=== PATIENT | female | born 1950 | race Caucasian/White ===

== ENCOUNTER 2025-03-22 12:55 | Inpatient (IN) | payer MEDICARE, SELFPAY ==
[2025-03-22] VITALS (28 sets, daily range): BP systolic 111–172; BP diastolic 85–116; PULSE 74–92; RESP 13–26; TEMP 36.3–36.6; O2SAT 90–100; BMI 23.3
--- NOTE | 2025-03-22 13:01 | ECG_ITS ---
Test Date: 2025-03-22 12:57:41 Measurements Intervals [place] Rate: 81 P: 56 AK: 171 QRS: -13 QRSD: 95 T: 72 QT: 403 QTc: 468 Interpretive Statements SINUS RHYTHM WITH OCCASIONAL VENTRICULAR PREMATURE COMPLEXES POSSIBLE LEFT ATRIAL ENLARGEMENT ANTEROSEPTAL ST ELEVATION MYOCARDIAL INFARCT- ACUTE CONSIDER INFERIOR INFARCT, AGE INDETERMINATE BASELINE ARTIFACT- I, II, III, AVR, AVL, AVF, V1 ABNORMAL ECG No previous ECG available for comparison Electronically Signed On 03-22-2025 14:59:12 CDT by Bipin Rodriguez D.O.
--- OUTSIDE RECORDS SUMMARY | 2025-03-22 13:07 | XMS_ITS ---
Author Organization [facility] Care Team Providers Care Spa Attendant Name Role Phone Hayes Crews Unavailable Unavailable Care Team Name Role Address Phone Organization Dates Hayes Crews PCP [address], [place], [place], [id number], [place] (Office): [phone] [facility] 11/01/2014 - 11/01/2014 Reason for Referral No Reasons for Referral Entered Social History Social History Observation Description Start Date End Date Code Code System Current Smoking Status Tobacco smoking consumption unknown 369000167 SNOMED CT Sex Assigned At Female 1950 [address]-3 [facility] Gender Identity
--- NOTE | 2025-03-22 13:12 | ED_ITS ---
HPI - Chest Pain General Chief Complaint: Chest Pain Stated Complaint: STEMI Time Seen by Provider: 03/22/25 12:56 History of Present Illness HPI narrative: Patient is a 74-year-old female who presents to the ER with ST-elevation NE. Activated from the field by [facility]. Has some chest pain last night. Worsening today. Left-sided going down left arm. She feels fatigued and nauseous. No history of NE. elevation in anteroseptal leads. Received aspirin and morphine from EMS. Related Data Home Medications ?Medication ?Instructions ?Recorded ?Confirmed ?Last Taken ?Type amlodipine 5 mg tablet 7.5 mg PO DAILY 03/22/25 03/22/25 03/22/25 History aspirin 81 mg tablet,delayed 81 mg PO DAILY 03/22/25 03/22/25 03/22/25 History release (Adult Aspirin Regimen) meloxicam 15 mg tablet 15 mg PO DAILY 03/22/25 03/22/25 03/22/25 History simvastatin 40 mg tablet 40 mg PO QPM 03/22/25 03/22/25 03/22/25 History triamterene 37.5 1 tablet PO DAILY 03/22/25 03/22/25 03/22/25 History mg-hydrochlorothiazide 25 mg tablet Allergies Allergy/AdvReac Type Severity Reaction Status Date / Time No Known Allergies Allergy Unverified 03/22/25 15:08 Review of Systems 2 Review of Systems: All systems reviewed & are unremarkable except as noted in HPI and below Constitutional: Constitutional: Reports no additional constitutional complaints Cardiovascular: Cardiovascular: Reports no additional cardiovascular complaints Respiratory: Respiratory: Reports no additional respiratory complaints Genitourinary: Genitourinary: Reports no additional female genitourinary complaints [facility] Past Medical History Medical History (Updated 03/22/25 @ 14:41 by Kane Nguyen MD) Hypertension Social History Social History (Updated 03/22/25 @ 14:40 by Kane Nguyen MD) Smoking packs per day: 0.33 Smoking cigarettes per day: 6.6 Years smoked: 13 Smoking pack-years: 4.29 Smoking status: Current every day smoker Tobacco type: cigarettes Alcohol intake: never Substance use: never Lack of Transportation: No Lack of Food: Never True Current Housing: I Have Housing Concerned About Future Housing: No Difficulty Paying Gas/Electric Bills: No Difficulty Paying for Meds: No Currently Unemployed: No Education: High School Diploma/GED Difficulty w/ Childcare or Family Care: No Spiritual care concerns: No Exam 2 Narrative: GENERAL: Ill-appearing, well-nourished, and in no acute distress. HEAD: Normocephalic, atraumatic. ENT: Mucous membranes moist. NECK: Supple. CHEST: Clear to auscultation. No respiratory distress. HEART: Regular rate and rhythm. Normal peripheral pulses. ABDOMEN: Soft, nontender, nondistended. EXTREMITIES: Normal range of motion. No edema. SKIN: Warm, dry, no rash. NEURO: Alert and oriented x3. PSYCH: Normal mood and affect. Course Course Emergency Course: Cath team at bedside. Spoke with interventional cards, will give heparin. Carmenta in animal laboratory helper. PT and family educated on treatment plan. Vital Signs Vital signs: Vital Signs Temperature 97.9 F 03/22/25 12:57 Pulse Rate 74 03/22/25 12:57 Respiratory Rate 18 03/22/25 12:57 Blood Pressure 169/115 H 03/22/25 12:57 Pulse Oximetry 100 03/22/25 12:57 Oxygen Delivery Room Air 03/22/25 12:57 Temperature 97.4 F L 03/22/25 16:00 Pulse Rate 75 03/22/25 18:00 Respiratory Rate 19 03/22/25 18:00 Blood Pressure 151/93 H 03/22/25 18:00 Pulse Oximetry 96 03/22/25 18:00 Oxygen Delivery Room Air 03/22/25 12:57 MDM - Chest Pain Lab Data 03/22/25 13:09 03/22/25 13:09 ECG Data EKG #1: ECG completion date: 03/22/25 Ischemic changes: acute STEMI EKG Interpretation: sinus rhythm, ST depression (inferior), ST elevation (V1-4) and normal QRS Discharge Plan Discharge Clinical Impression: ST elevation (STEMI) myocardial infarction Patient Disposition: Still a Patient Condition: Stable
[2025-03-22 13:17] LABS: Hematocrit 42.2 % (37.0-47.0); Hemoglobin 14.7 g/dL (12.0-15.0); Immature Granulocyte Percent A 0.4 % (0-0.5); Lymphocytes Absolute Auto 0.87 K/mm3 (0.9-3.2); Mean Corpuscular HGB Conc 34.8 g/dl (32-36); Mean Corpuscular Hemoglobin 31.3 pg (26-34); Mean Corpuscular Volume 89.8 fl (80-100); Nucleated Red Blood Cells Absolute Auto 0.000 K/mm3 (0.0-0.012); Nucleated Red Blood Cells Perc 0.0 % (0.0-0.2); Platelet Count Result 187 k/mm3 (150-375); Red Blood Count 4.70 M/mm3 (4.2-5.4); White Blood Count 9.7 K/mm3 (4.5-10.0)
[2025-03-22 13:29] LABS: INR 0.9; Partial Thromboplastin Time 20.5 Seconds (22.3-36.8); Prothrombin Time 12.1 Seconds (11.1-14.7)
[2025-03-22 13:35] LABS: Alanine Aminotransferase 35 U/L (6-35); Albumin Level 4.7 g/dL (3.5-5.1); Alkaline Phosphatase 104 U/L (38-126); Anion Gap 14 mmol/L (4-12); Aspartate Amino Transferase 53 U/L (14-36); Bilirubin,Total 0.7 mg/dL (0.2-1.3); Blood Urea Nitrogen 24 mg/dL (7-17); Calcium 10.6 mg/dL (8.4-10.2); Carbon Dioxide 22 mmol/L (22-30); Chloride 103 mmol/L (98-107); Cholesterol 226 mg/dL (0-200); Estimated CRCL calculation 39 ml/min; Estimated Glomerular Filt Rate 54; Glucose 188 mg/dL (65-110); HDL Direct 78 mg/dL; Potassium 3.3 mmol/L (3.4-5.0); Sodium 139 mmol/L (137-145); Total Protein 7.2 g/dL (6.3-8.2); Triglycerides 136 mg/dL (<150)
[2025-03-22 13:43] LABS: NT Pro B Type Natriuretic Pept 802 pg/mL (19.9-100); Troponin I 1.690 ng/mL (0.000-0.034)
[2025-03-22 14:27] LABS: MRSA (PCR) NOT DETECTED (NOT DETECTE)
--- NOTE | 2025-03-22 14:38 | PM.IMHP ---
H&P: HPI History of Present Illness Date/Time: 03/22/25 14:38 Chief Complaint: Chest pain since yesterday Narrative: HPI: 74-year-old female with past medical history of hypertension; tobacco abuse. No known prior cardiac history. Patient presented to [facility] Emergency Room via EMS with complaints of chest pain that started yesterday and got worse today. Her symptoms are associated with shortness of breath, dizziness without syncope. Patient denied prior cardiac history including clinical OK, angina, heart failure or any known arrhythmias. EKG on my personal interpretation showed sinus rhythm, ST-elevation in the leads V1-V3 with reciprocal ST depression in the inferior leads. Cardiac catheterization lab was activated for primary PCI in the setting of late presentation STEMI with ongoing chest pain. Review of Systems Review of Systems: General: Negative for fever, chills, fatigue Psychological: Negative for anxiety, depression Ophthalmic: negative for loss of vision ENT: Negative for epistaxis, headaches Allergy and immunology: Negative for hives, nasal congestion Hematologic and lymphatic: Negative for overt bleeding problems Endocrine: Negative for hot flashes, palpitations Respiratory: Negative for cough, hemoptysis Cardiovascular: Positive for chest pain and dyspnea Gastrointestinal: Negative for abdominal pain, nausea, vomiting, hematochezia Musculoskeletal: Negative for myalgia, joint pains Neurological: Negative for weakness Dermatological: Negative for rash, skin discoloration PMFSH Past Medical History Medical History (Updated 03/22/25 @ 14:41 by Kane Nguyen MD) Hypertension Social History Social History (Updated 03/22/25 @ 14:40 by Kane Nguyen MD) Smoking status: Current every day smoker Alcohol intake: unknown Substance use: unknown Meds Home Medications and Allergies Allergies Allergy/AdvReac Type Severity Reaction Status Date / Time No Known Allergies Allergy Unverified 03/22/25 13:04 Vital Signs Vital Signs - 24 hr 03/22/25 12:57 03/22/25 13:03 Temperature 36.6 C Pulse Rate 74 78 Respiratory Rate 18 20 Blood Pressure 169/115 H 172/116 H Pulse Oximetry 100 100 Oxygen Delivery Room Air Exam Narrative: PHYSICAL EXAMINATION: GENERAL: Alert, oriented, distress due to ongoing chest pain MENTAL STATUS: Anxious EYES: Extraocular movements intact, no pallor EARS: External ears appear normal, hearing grossly normal NOSE: Normal and patent, no discharge MOUTH: Mucous membranes moist, tongue normal NECK: Supple, no JVD CHEST: Coarse breath sounds HEART: Normal rate, regular rhythm, normal S1 and S2, S4 gallop ABDOMEN: Soft, nontender NEUROLOGICAL: Alert, oriented, normal speech, no gross motor deficits MUSCULOSKELETAL: No major deformity, no amputation EXTREMITIES: No pedal edema, no clubbing, no cyanosis SKIN: no rash on the exposed area, no cyanosis PSYCHIATRIC: Anxious H&P: Results Labs Labs: Short CBC 03/22/25 Range/Units 13:09 WBC 9.7 (4.5-10.0) K/mm3 Hgb 14.7 (12.0-15.0) g/dL Hct 42.2 (37.0-47.0) % Plt Count 187 (150-375) k/mm3 BMP 03/22/25 13:09 Sodium 139 Potassium 3.3 L Chloride 103 Carbon Dioxide 22 BUN 24 H Creatinine 1.01 H Glucose 188 H Calcium 10.6 H Cardiac Enzymes 03/22/25 Range/Units 13:09 Troponin I 1.690 H* (0.000-0.034) ng/mL Liver Function 03/22/25 Range/Units 13:09 Total Bilirubin 0.7 (0.2-1.3) mg/dL AST 53 H (14-36) U/L ALT 35 (6-35) U/L Alkaline Phosphatase 104 (38-126) U/L Albumin 4.7 (3.5-5.1) g/dL Assessment and Plan Assessment and plan (1) ST elevation (STEMI) myocardial infarction: Code(s): I21.3 - ST elevation (STEMI) myocardial infarction of unspecified site Status: Acute Assessment and Plan: 74-year-old female with hypertension, tobacco abuse. Patient presented with at least 1 day history of ongoing chest pain. EKG showed anteroseptal ST elevation [place]. Patient was taken to the medical laboratory technologist for primary PCI in the setting of late presentation STEMI with ongoing chest pain. Cardiac catheterization showed 100% thrombotic occlusion of proximal LAD-infarct related vessel; about 70% stenosis in the proximal segment of the ramus intermedius. Left ventriculogram showed LV systolic dysfunction with akinetic to dyskinetic apical and apical inferior segments; LVEF about 35-40%, LVEDP elevated at 39 mmHg. Patient underwent primary PCI/aspiration thrombectomy, IVUS, PTCA/stenting of proximal LAD using 2 sirolimus eluting stents in an overlapping fashion. -admit to ICU -due to heavy thrombus burden, patient will be continued on bivalirudin for additional 2 hours; and initiated on eptifibatide for next 12-18 hours. -dual antiplatelet therapy with aspirin ticagrelor; high-dose statin. Due to LV systolic dysfunction, low-dose beta-jacki will be initiated + ACEI or ARB (this can be later switched to ARNI) when blood pressure allows. -echo with Doppler with contrast to check LV function and rule out LV apical thrombus in light of large anterior OK. -stage PCI of proximal ramus intermedius can be considered in future based on clinical course -labs including CMP, CBC, HGB A1c, lipid panel, serial troponins for prognostication. -patient, her family and IC patient updated. (2) Tobacco abuse: Code(s): Z72.0 - Tobacco use Status: Acute Assessment and Plan: Smoking cessation consult was done
--- NOTE | 2025-03-22 14:45 | P.PCNCC_ITS ---
Cardiac Cath Procedure Note Date of procedure:: 03/22/25 Performing physician:: Kane Nguyen MD Procedure Procedure note:: EMERGENT CARDIAC CATHETERIZATION AND PERCUTANEOUS CORONARY INTERVENTION REPORT DATE OF PROCEDURE: 03/22/2025 INDICATION FOR PROCEDURE: Acute coronary syndrome-late presentation anteroseptal ST-elevation myocardial infarction with ongoing chest pain BRIEF CLINICAL HISTORY: 74-year-old female with past medical history of hypertension; tobacco abuse. No known prior cardiac history. Patient presented to [facility] Emergency Room via EMS with complaints of chest pain that started yesterday and got worse today. Her symptoms are associated with shortness of breath, dizziness without syncope. Patient denied prior cardiac history including clinical [place], angina, heart failure or any known arrhythmias. EKG showed sinus rhythm, ST-elevation in the leads V1-V3 with reciprocal ST depression in the inferior leads. Cardiac catheterization lab was activated for primary PCI in the setting of late presentation STEMI with ongoing chest pain. Patient received aspirin, heparin and morphine in the ER. PROCEDURES PERFORMED: 1. Emergent Left heart catheterization- Selective left and right coronary angiogram; left ventriculogram and hemodynamic assessment 2. Percutaneous coronary intervention- a) aspiration thrombectomy of totally occluded proximal LAD using Estrela Digital CAT Rx thrombectomy catheter (heavy thrombus burden in the proximal and distal LAD); b) balloon angioplasty and stenting of proximal LAD using 4.0 x 30 mm and 4.0 x 13 mm Biotronik sirolimus eluting stents in an overlapping fashion; c) intravascular ultrasound of LAD 3. Moderate sedation-CPT code 14960 and beyond MODERATE SEDATION: Midazolam 2 mg; fentanyl 50 mcg. Start time 1325 , Stop time 1428 ; Total [id number] time 63 minutes; Adi Arnold RN was trained observer for moderate sedation. ACCESS SITE: Right radial artery PROCEDURE NOTE: Patient was emergently brought to catheterization lab and prepped and draped in a usual sterile manner. After local anesthesia with lidocaine, right radial artery access was taken with micropuncture needle followed by insertion of a 6 Chadian sheath. Patient received 2.5 mg of verapamil, 100 mcg of nitroglycerin through the arterial sheath. She received bivalirudin for procedural anticoagulation. Selective left and right coronary angiogram was performed using 6 Chadian EBU 3 and JR4 catheters respectively. Orthogonal views were taken. After completion of primary PCI, a 5 Chadian pigtail catheter was advanced in the LV cavity and was flushed with normal saline. LV pressure measurement was performed. After this, left ventriculogram was performed. The catheter was flushed again, and gradient across the aortic valve was measured on the pullback of the catheter. After completion of procedure, radial band was applied with good hemostasis. There were no immediate procedure related complications. FINDINGS: LEFT MAIN CORONARY: Medium caliber vessel, minimal narrowing at the ostium without significant pressure dampening. LEFT ANTERIOR DESCENDING ARTERY: Lad is a large caliber vessel with 100% thr ombotic occlusion in the proximal segment with diffuse plaque in the proximal- mid segment-infarct related vessel. After PCI, the vessel is seen as medium caliber vessel in the mid and distal segment and is tortuous, tapers distally and reaches the apex. RAMUS INTERMEDIUS: Medium caliber vessel with about 70% stenosis in the proximal segment. The ostium is not well visualized. LEFT CIRCUMFLEX ARTERY: Medium to large caliber vessel, gives rise to small caliber OM1 branch, medium caliber tortuous OM2 and OM3 branches without significant focal stenosis. RIGHT CORONARY ARTERY: Medium caliber vessel. There is about 50% stenosis at the ostium, and mild diffuse plaque in the proximal segment. LEFT VENTRICULOGRAM: LV systolic dysfunction with segmental wall motion abnormality-apical and apical inferior segments are dyskinetic; basal segments are preserved, LVEF about 35-40%. LVEDP severely elevated at 39 mmHg. HEMODYNAMIC ASSESSMENT: Opening pressure 182/114 mmHg, closing pressure 150/85 mmHg, LVEDP 39 mmHg; no significant gradient across aortic valve on the pullback of pigtail catheter. INTERVENTION REPORT: Left main coronary artery ostium was selectively engaged using 6 Chadian EBU 3 guide catheter. Patient had already received aspirin, was given loading dose of ticagrelor 180 mg in the r and d lab technician. Bivalirudin was used for pressure anticoagulation. The totally occluded proximal LAD was successfully crossed after few attempts using 0.014 pilot plant technician 150 wire. The wire was advanced in the distal LAD. After this, balloon angioplasty was performed using a 2.5x 10 mm compliant balloon at nominal pressures. After this, balloon was taken out and angiogram showed some jain of flow in the LAD with heavy thrombus burden in the distal segment. In light of this, aspiration thrombectomy was performed using a Shoplogixra CAT Rx thrombectomy catheter. After this, ic nitroglycerin was given with modest improvement in the flow. Next, IC nitroprusside was given which resulted in the significant improvement in the coronary flow. Significant disease was seen in the proximal segment. IVUS was performed which showed the distal reference diameter of about 4 mm, and proximal response diameter between 4.5-5 mm. After this, a 4.0 x 30 mm Biotronik sirolimus eluting stent was successfully deployed in the lower part of the proximal segment and upper part of the mid segment at nominal pressures. The proximal portion of the stent was covered in the residual stenosis using a 4.0 x 13 mm Biotronik sirolimus eluting stent in an overlapping fashion high inflation pressures. After this, postdilatation was performed using 5.0 x 15 mm NC balloon. There was sluggish blood flow in the LAD. Ic nitroglycerin was given, followed by IC eptifibatide. Patient had significant improvement in the chest pain. After this, left ventriculogram was performed using pigtail catheter as described above. Radial band was applied for local hemostasis. Due to heavy thrombus burden in the LAD, patient will be continued on bivalirudin for next 2 hours, and initiated on eptifibatide for next 12-18 hours. There were no immediate procedure related complications. CONCLUSIONS: 1. CAD: a) 100% thrombotic occlusion proximal LAD with heavy thrombus burden in the distal LAD (infarct-related vessel); b) about 70% stenosis in the proximal segment of ramus intermedius 2. LV dysfunction with segmental wall motion abnormality akinetic to dyskinetic apical and apical inferior segments; basal segments preserved. LVEF about 35- 40%. LVEDP severely elevated at 39 mmHg. 3. Primary PCI-aspiration thrombectomy using penumbra CAT Rx thrombectomy catheter in LAD with heavy thrombus burden; IVUS, PTCA/stenting of proximal LAD using 4.0 x 30 mm and 4.0 x 13 mm Biotronik sirolimus eluting stents in an overlapping fashion (post dilated with 5.0 NC balloon). PLAN/RECOMMENDATIONS: - admit to ICU -due to heavy thrombus burden, patient will be continued on bivalirudin for additional 2 hours; and initiated on eptifibatide for next 12-18 hours. -dual antiplatelet therapy with aspirin ticagrelor; high-dose statin. Due to LV systolic dysfunction, low-dose beta-jacki will be initiated + ACEI or ARB (this can be later switched to ARNI) when blood pressure allows. -echo with Doppler with contrast to check LV function and rule out LV apical thrombus in light of large anterior [place]. -staged PCI of proximal ramus intermedius can be considered in near future based on clinical course -labs including CMP, CBC, HGB A1c, lipid panel. Serial troponins for prognostication. -smoking cessation -patient, her family and IC patient updated. This document was completed by using [employer] speech recognition software, therefore, microfiche duplicator variances may occur.
[2025-03-22] MEDS: EPTIFIBATIDE 0.75 MG/ML 75 MG/100 ML VIAL 9.65 MG IV CONT ×2 (15:00→23:35)
--- NOTE | 2025-03-22 15:06 | ADMGEN ---
This patient, Patience Marroquin, was admitted to Intensive Care Unit-6. Patient/family oriented to hospital policies and general routines including ID bracelet, bed and alarms, visiting hours, pain management, procedures, bathroom and other care routines, personal items, smoking policy, room service/diet, and visiting hours. Information on how to activate the Rapid Response Team has been discussed. Patient/Family are encouraged to report perceived risks to care and to ask questions if they do not understand what they are told or what they should do.
--- OUTSIDE RECORDS SUMMARY | 2025-03-22 15:12 | XMS_ITS ---
Author Organization [facility] Care Team Providers Care Casting Plug Assembler Name Role Phone Hayes Crews Unavailable Unavailable Care Team Name Role Address Phone Organization Dates Hayes Crews PCP [address], [place], [place], [id number], [place] (Office): [phone] [facility] 11/01/2014 - 11/01/2014 Reason for Referral No Reasons for Referral Entered Social History Social History Observation Description Start Date End Date Code Code System Current Smoking Status Tobacco smoking consumption unknown [id number] SNOMED CT Sex Assigned At Female 1950 [address]-6 [facility] Gender Identity
[2025-03-22 15:25] LABS: Hemoglobin A1C 5.9 % (<5.7)
[2025-03-22 15:26] LABS: Cholesterol 228 mg/dL (0-200); HDL Direct 76 mg/dL; Triglycerides 137 mg/dL (<150)
[2025-03-22 16:28] LABS: Troponin I > 80.000 ng/mL (0.000-0.034)
[2025-03-22] MEDS: SODIUM CHLORIDE 0.9% IV 1,000 ML 125 ML IV CONT (16:35)
--- NOTE | 2025-03-22 16:55 | PC.NURSE ---
Stopped Angiom[employer] at 16:55
[2025-03-22] MEDS: POTASSIUM CHLORIDE 20 MEQ PACKET (FOR LIQUID) 40 MEQ PO (17:42)
[2025-03-22] MEDS: COLCHICINE 0.6 MG TABLET 1.2 MG PO (17:43)
[2025-03-22 19:57] LABS: Troponin I > 80.000 ng/mL (0.000-0.034)
[2025-03-22] MEDS: ATORVASTATIN 40 MG TABLET 80 MG PO (21:20)
[2025-03-22] MEDS: TICAGRELOR 90 MG TABLET PO (21:20)
[2025-03-23] VITALS (16 sets, daily range): BP systolic 94–145; BP diastolic 74–108; PULSE 73–90; RESP 14–26; TEMP 36.4–37.4; O2SAT 94–98
--- NOTE | 2025-03-23 | ECHO_ITS ---
Patient Info Name: Patience Marroquin Age: 74 years : 1950 Gender: Female Ht: 65 in Wt: 132 lbs BSA: 1.66 m2 HR: 74 bpm BP: 133 / 92 mmHg Technical Quality: Fair Exam Date: 03/23/2025 12:07 PM Patient Status: I Admit Date: 03/22/2025 Exam Type: CA echo dop color flow w con Complete two-dimensional, color flow and Doppler transthoracic echocardiogram is performed with contrast to opacify the left ventricle and to improve the deliniation of the left ventricle endocardial borders. Staff Referring Physician: Frank Ledesma MD Sebd Teacher: Carline Merida Attending Provider: Kane Nguyen MD Contrast/Agitated Saline Contrast/Ag. Saline: Definity Amount: 2.00 ml Administered By: Carline Merida Summary 1. The left ventricle is normal in size with severely reduced systolic function. The left ventricular ejection fraction is visually estimated to be 25-30%. The entire apex, septum, anterior wall, and distal inferior wall are severely hypokinetic. There is no apical thrombus. 2. The right ventricle is normal in size and systolic function. 3. The aortic valve is not well visualized however there is moderate aortic stenosis by Doppler criteria. 4. Dilated inferior vena cava with <50% collapse upon inspiration consistent with significantly elevated right atrial pressure, 15 mmHg. Left Ventricle The left ventricle is normal in size with severely reduced systolic function. The left ventricular ejection fraction is visually estimated to be 25-30%. The entire apex, septum, anterior wall, and distal inferior wall are severely hypokinetic. There is no apical thrombus. Right Ventricle The right ventricle is normal in size and systolic function. Left Atria The left atrium is normal in size. Right Atria The right atrium is normal in size. Atrial Septum The atrial septum is not well visualized. Aortic Valve The aortic valve is not well visualized however there is moderate aortic stenosis by Doppler criteria. Mitral Valve The mitral valve leaflets are normal. There is mitral annular calcification. There is trace mitral regurgitation. Tricuspid Valve The tricuspid valve is normal. There is trace tricuspid regurgitation. Pericardium/Pleural Pericardium is normal in appearance with no evidence for significant pericardial effusion. Inferior Vena Cava Dilated inferior vena cava with <50% collapse upon inspiration consistent with significantly elevated right atrial pressure, 15 mmHg. Aorta The aorta is not well visualized. Left Ventricular Outflow Tract Name Value Normal LVOT 2D LVOT Diameter 1.8 cm LVOT Doppler LVOT Peak Velocity 110 cm/s LVOT Peak Gradient 5 mmHg LVOT Mean Gradient 2 mmHg LVOT VTI 27 cm LVOT VTI/AV VTI Ratio 0.5 LVOT Stroke Volume 67 ml LVOT CO 4.0 l/min LVOT CI 2.4 l/min/m2 Mitral Valve Name Value Normal MV Diastolic Function MV E Peak Velocity 30 cm/s MV A Peak Velocity 85 cm/s MV E/A 0.4 MV Decel Time (PW) 483 ms MV Annular TDI MV E/e' (Septal) 7.1 MV E/e' (Lateral) 4.5 MV E/e' (Average) 5.8 Tricuspid Valve Name Value Normal Estimated PAP/RSVP RA Pressure 15 mmHg <=5 Aortic Valve Name Value Normal AV Doppler AV Peak Velocity 287 cm/s AV Peak Gradient 33 mmHg AV Mean Gradient 20 mmHg AV VTI 57 cm AV Area (Cont Eq VTI) 1.2 cm2 >=3.0 AV Area (Cont Eq Kwame) 0.9 cm2 AV DI (Kwame) 0.38 AV Regurgitation 2D LVOT Area 2.5 cm2 Ventricles Name Value Normal LV Dimensions 2D/MM IVS Diastolic Thickness (2D) 1.2 cm 0.6-1.0 LVID Diastole (2D) 5.1 cm 3.8-5.2 LVIW Diastolic Thickness (2D) 1.0 cm 0.6-0.9 LVID Systole (2D) 4.2 cm 2.2-3.5 LVOT Diameter 1.8 cm LV Mass (2D Cubed) 218.53 g 67.00-162.00 LV Mass Index (2D Cubed) 132 g/m2 43-95 Relative Wall Thickness (2D) 0.41 <=0.42 LV Fractional Shortening/Ejection Fraction 2D/MM LV Fractional Shortening (2D) 18 % 27-45 LV EF (2D Teichholz) 36 % LV Diastolic Volume (4C MOD) 80 ml LV EF (4C MOD) 43 % LV Diastolic Volume (2C MOD) 83 ml LV EF (2C MOD) 31 % LV Diastolic Volume (BP MOD) 81 ml 46-106 LV Diastolic Volume Index (BP MOD) 49 ml/m2 29-61 LV Systolic Volume (BP MOD) 50 ml 14-42 LV Systolic Volume Index (BP MOD) 30 ml/m2 8-24 LV EF (BP MOD) 38 % 54-74 LV Diastolic Length (4C) 7.6 cm LV Systolic Length (4C) 7.2 cm LV Stroke Volume (4C MOD) 34 ml Atria Name Value Normal LA Dimensions LA Volume (4C A-L) 23 ml LA Volume (BP A-L) 25 ml RA Dimensions RA Systolic Major [place] Length (4C) 3.6 cm 2.2-2.8 RA Area (4C) 10.3 cm2 <=18.0 Report Signatures
--- NOTE | 2025-03-23 00:55 | ECG_ITS ---
Test Date: 2025-03-23 01:02:11 Measurements Intervals [place] Rate: 73 P: 48 CA: 159 QRS: -14 QRSD: 93 T: 66 QT: 404 QTc: 448 Interpretive Statements SINUS RHYTHM LOW QRS VOLTAGE IN PRECORDIAL LEADS ANTEROSEPTAL ST ELEVATION MYOCARDIAL INFARCTION, PROBABLY RECENT ABNORMAL ECG Compared to ECG 03/22/2025 12:57:41 STEMI EVOLVING Electronically Signed On 03-23-2025 06:31:01 CDT by Bipin Rodriguez D.O.
[2025-03-23 07:47] LABS: Hematocrit 39.6 % (37.0-47.0); Hemoglobin 13.8 g/dL (12.0-15.0); Immature Granulocyte Percent A 0.5 % (0-0.5); Lymphocytes Absolute Auto 0.71 K/mm3 (0.9-3.2); Mean Corpuscular HGB Conc 34.8 g/dl (32-36); Mean Corpuscular Hemoglobin 31.4 pg (26-34); Mean Corpuscular Volume 90.0 fl (80-100); Nucleated Red Blood Cells Absolute Auto 0.000 K/mm3 (0.0-0.012); Nucleated Red Blood Cells Perc 0.0 % (0.0-0.2); Platelet Count Result 205 k/mm3 (150-375); Red Blood Count 4.40 M/mm3 (4.2-5.4); White Blood Count 13.6 K/mm3 (4.5-10.0)
[2025-03-23 08:07] LABS: Alanine Aminotransferase 113 U/L (6-35); Albumin Level 4.2 g/dL (3.5-5.1); Alkaline Phosphatase 91 U/L (38-126); Anion Gap 9 mmol/L (4-12); Aspartate Amino Transferase 660 U/L (14-36); Bilirubin,Total 1.1 mg/dL (0.2-1.3); Blood Urea Nitrogen 25 mg/dL (7-17); Calcium 9.8 mg/dL (8.4-10.2); Carbon Dioxide 21 mmol/L (22-30); Chloride 105 mmol/L (98-107); Estimated CRCL calculation 49 ml/min; Estimated Glomerular Filt Rate > 60; Glucose 159 mg/dL (65-110); Magnesium 1.8 mg/dL (1.6-2.3); Potassium 4.0 mmol/L (3.4-5.0); Sodium 135 mmol/L (137-145); Total Protein 6.6 g/dL (6.3-8.2)
[2025-03-23] MEDS: ATORVASTATIN 40 MG TABLET 80 MG PO (08:51)
[2025-03-23] MEDS: ASPIRIN 81 MG ENTERIC TABLET PO (08:51)
[2025-03-23] MEDS: LOSARTAN POTASSIUM 25 MG TABLET PO (08:52)
[2025-03-23] MEDS: TICAGRELOR 90 MG TABLET PO ×2 (08:52→20:20)
--- NOTE | 2025-03-23 08:59 | P.CONIN_ITS ---
Assessment and Plan Assessment and plan (1) ST elevation (STEMI) myocardial infarction: Code(s): I21.3 - ST elevation (STEMI) myocardial infarction of unspecified site Status: Acute Assessment and Plan: 03/22/2025: Patient presented with chest pain, nausea, fatigue, radiation to the left arm along with diaphoresis. Status post PCI with overlapping RENAE x2 to the LAD. Status post Integrilin infusion -continue aspirin, Brilinta, beta-jacki, losartan -out patient states PCI to the ramus branch per Cardiology -will check echocardiogram (2) Hypertension: Code(s): I10 - Essential (primary) hypertension Status: Acute Assessment and Plan: Continue losartan, carvedilol and amlodipine (3) Tobacco abuse: Code(s): Z72.0 - Tobacco use Status: Acute Assessment and Plan: Counseled patient cessation of smoking/tobacco abuse (4) Hyperlipidemia: Code(s): E78.5 - Hyperlipidemia, unspecified Status: Acute Assessment and Plan: Continue atorvastatin (5) Paroxysmal atrial fibrillation: Code(s): I48.0 - Paroxysmal atrial fibrillation Status: Acute Assessment and Plan: Incidental finding on telemetry overnight, could be related to ischemic event. -cardiology aware and recommended outpatient re-evaluation Plan DVT prophylaxis: Status post cardiac catheterization, status post Integrilin infusion Stress ulcer prophylaxis: Not indicated Nutrition: Heart healthy diet Code Status: Full code Critical Care Time Spent: 45 minute Patient may transfer out of the ICU Due to a high probability of clinically significant, life threatening deterioration, the patient required my highest level of preparedness to intervene emergently and I personally spent this critical care time directly and personally managing the patient. This critical care time included obtaining a history; examining the patient; pulse oximetry; ordering and review of studies; arranging urgent treatment with development of a management plan; evaluation of patient's response to treatment; frequent reassessment; and discussions with other providers. It was exclusive of separately billable procedures and treating other patients and teaching time. Please see Assessment and Plan section and the rest of the note for further information on patient assessment and treatment This dictation may have been done utilizing a voice recognition system. Attempts have been made to correct errors. However, there may be uncorrected grammatical, spelling, and recognitions errors present. Videotape Sales Representative Consult Note Consult date: 03/23/25 Reason for consult: ST-elevation RI status post PTCA/PCI with RENAE x2 in overlapping fashion 100% total occlusion of proximal LAD with heavy thrombus burden in the distal LAD. Status post thrombectomy using pain and thrombectomy catheter in LAD. LVEF about 30-45%, LVEDP was 39 mmHg HPI: Patience Marroquin is a 74 year old female essential hypertension, hyperlipidemia, tobacco abuse presents to [facility] ER on 03/22/2025 Via EMS with complaints of chest pain that started on 03/21/2025 and got was on the day of admission which prompted her to come to the ED. chest pain was on the left side, radiating down to the left arm, nausea, fatigue and diaphoresis. No known previous cardiac history. EKG showed ST elevations in lead V1 to V3 with reciprocal ST depression in the inferior leads. STEMI team was activated and patient was taken to the cardiac mobile home laborer. Status post PTCA/PCI with RENAE x2 in overlapping fashion 100% total occlusion of proximal LAD with heavy thrombus burden in the distal LAD. Status post thrombectomy using pain and thrombectomy catheter in LAD. LVEF about 30-45%, LVEDP was 39 mmHg. Cardiology wanted Integrilin and Angiomax to be continued. And patient was transferred to the ICU for further management Patient seen and examined the ICU this morning, is awake, alert, oriented x3. Denies any chest pain, shortness of breath, nausea, diaphoresis, abdominal pain, and vomiting. Denies any trouble breathing. Patient states she smokes a pack of cigarettes per day, last cigarette was on the day of admission. Denies any alcohol or illicit drug use. She states she has been taking her medications for her blood pressure and cholesterol medications regularly. Review of Systems 2 Review of Systems: All systems reviewed & are unremarkable except as noted in HPI and below PMFSH Past Medical History Medical History (Updated 03/23/25 @ 09:30 by Marcio Vilchis MD) Hypertension Social History Social History (Updated 03/22/25 @ 14:40 by Kane Nguyen MD) Smoking packs per day: 0.33 Smoking cigarettes per day: 6.6 Years smoked: 13 Smoking pack-years: 4.29 Smoking status: Current every day smoker Tobacco type: cigarettes Alcohol intake: never Substance use: never Lack of Transportation: No Lack of Food: Never True Current Housing: I Have Housing Concerned About Future Housing: No Difficulty Paying Gas/Electric Bills: No Difficulty Paying for Meds: No Currently Unemployed: No Education: High School Diploma/GED Difficulty w/ Childcare or Family Care: No Spiritual care concerns: No Meds Home Medications and Allergies Home Medications ?Medication ?Instructions ?Recorded ?Confirmed ?Type amlodipine 5 mg tablet 7.5 mg PO DAILY 03/22/25 03/22/25 History aspirin 81 mg tablet,delayed 81 mg PO DAILY 03/22/25 03/22/25 History release (Adult Aspirin Regimen) meloxicam 15 mg tablet 15 mg PO DAILY 03/22/25 03/22/25 History simvastatin 40 mg tablet 40 mg PO QPM 03/22/25 03/22/25 History triamterene 37.5 1 tablet PO DAILY 03/22/25 03/22/25 History mg-hydrochlorothiazide 25 mg tablet atorvastatin 40 mg tablet 80 mg (2 x 40 mg) PO HS #180 tabs 03/23/25 Rx carvedilol 3.125 mg tablet (Coreg) 6.25 mg (2 x 3.125 mg) PO Q12HR 03/23/25 Rx #180 tabs losartan 25 mg tablet 25 mg PO DAILY #90 tabs 03/23/25 Rx ticagrelor 90 mg tablet (Brilinta) 90 mg PO Q12HR #180 tabs 03/23/25 Rx varenicline tartrate 0.5 mg (11)-1 See Rx Instructions PO .COMPLEX 03/23/25 Rx mg (42) tablets in a dose pack #53 ea (Chantix Starting Month Box) Allergies Allergy/AdvReac Type Severity Reaction Status Date / Time No Known Allergies Allergy Unverified 03/22/25 15:08 Vital Signs Vital Signs - 24 hr 03/22/25 12:57 03/22/25 13:03 03/22/25 14:50 Temperature 97.9 F Pulse Rate 74 78 77 Respiratory Rate 18 20 15 Blood Pressure 169/115 H 172/116 H 127/89 Pulse Oximetry 100 100 Oxygen Delivery Room Air Fraction of Inspired Oxygen 03/22/25 15:00 03/22/25 15:15 03/22/25 15:30 Temperature Pulse Rate 78 78 87 Respiratory Rate 18 17 22 H Blood Pressure 141/94 H 132/85 133/105 H Pulse Oximetry 97 95 96 Oxygen Delivery Fraction of Inspired Oxygen 03/22/25 15:45 03/22/25 16:00 03/22/25 16:00 Temperature 97.4 F L Pulse Rate 79 87 87 Respiratory Rate 18 19 Blood Pressure 142/96 H 141/87 H Pulse Oximetry 97 99 Oxygen Delivery Fraction of Inspired Oxygen 03/22/25 16:00 03/22/25 16:15 03/22/25 16:30 Temperature Pulse Rate 87 87 91 Respiratory Rate 19 22 H 24 H Blood Pressure 141/87 H 139/89 127/97 H Pulse Oximetry 99 93 90 Oxygen Delivery Fraction of Inspired Oxygen 03/22/25 16:45 03/22/25 17:00 03/22/25 17:15 Temperature Pulse Rate 78 82 76 Respiratory Rate 19 20 18 Blood Pressure 134/107 H 111/92 H Pulse Oximetry 97 95 93 Oxygen Delivery Fraction of Inspired Oxygen 03/22/25 17:47 03/22/25 18:00 03/22/25 18:00 Temperature Pulse Rate 74 75 75 Respiratory Rate 22 H 19 19 Blood Pressure 144/100 H 151/93 H 151/93 H Pulse Oximetry 95 96 96 Oxygen Delivery Fraction of Inspired Oxygen 03/22/25 18:00 03/22/25 18:15 03/22/25 18:30 Temperature Pulse Rate 75 74 75 Respiratory Rate 20 19 Blood Pressure 146/97 H 150/104 H Pulse Oximetry 93 93 Oxygen Delivery Fraction of Inspired Oxygen 03/22/25 18:45 03/22/25 19:08 03/22/25 19:41 Temperature Pulse Rate 75 74 78 Respiratory Rate 23 H 13 26 H Blood Pressure 146/101 H 139/96 H 142/99 H Pulse Oximetry 91 92 95 Oxygen Delivery Fraction of Inspired Oxygen 03/22/25 20:00 03/22/25 20:00 03/22/25 20:00 Temperature 97.7 F Pulse Rate 77 81 Respiratory Rate 20 Blood Pressure 143/100 H Pulse Oximetry 98 Oxygen Delivery Room Air Fraction of Inspired Oxygen 03/22/25 20:33 03/22/25 20:47 03/22/25 21:19 Temperature Pulse Rate 80 74 79 Respiratory Rate 20 22 H 26 H Blood Pressure 148/100 H 156/103 H Pulse Oximetry 95 100 97 Oxygen Delivery Room Air Fraction of Inspired Oxygen 21 03/22/25 21:20 03/22/25 21:35 03/22/25 21:50 Temperature Pulse Rate 78 92 78 Respiratory Rate 24 H 22 H Blood Pressure 162/109 H 137/87 Pulse Oximetry 96 96 Oxygen Delivery Fraction of Inspired Oxygen 03/22/25 22:00 03/22/25 22:00 03/23/25 00:00 Temperature Pulse Rate 79 79 Respiratory Rate 23 H Blood Pressure 149/106 H Pulse Oximetry 95 Oxygen Delivery Room Air Fraction of Inspired Oxygen 03/23/25 00:00 03/23/25 00:00 03/23/25 02:00 Temperature 98.2 F Pulse Rate 76 76 76 Respiratory Rate 23 H Blood Pressure 94/74 L Pulse Oximetry 96 Oxygen Delivery Fraction of Inspired Oxygen 03/23/25 02:00 03/23/25 04:00 03/23/25 04:00 Temperature 97.9 F Pulse Rate 76 77 Respiratory Rate 20 14 Blood Pressure 119/84 133/92 H Pulse Oximetry 96 97 Oxygen Delivery Room Air Fraction of Inspired Oxygen 03/23/25 04:00 03/23/25 06:00 03/23/25 06:00 Temperature Pulse Rate 80 77 77 Respiratory Rate 25 H Blood Pressure 145/108 H Pulse Oximetry 94 Oxygen Delivery Fraction of Inspired Oxygen 03/23/25 07:23 03/23/25 08:00 03/23/25 08:00 Temperature 98.4 F Pulse Rate 90 90 90 Respiratory Rate 18 18 Blood Pressure 142/99 H Pulse Oximetry 98 98 Oxygen Delivery Room Air Fraction of Inspired Oxygen 21 03/23/25 08:52 Temperature Pulse Rate 81 Respiratory Rate Blood Pressure Pulse Oximetry Oxygen Delivery Fraction of Inspired Oxygen Exam 2 Narrative: General: Pleasant female in no acute distress HEENT:? Pupils equal and reactive, sclera is clear, moist oral mucosa Neck:? Supple Respiratory: Clear to auscultation bilaterally, no wheezing, adequate air entry Cardiac:? S1-S2 normal, regular rate and rhythm Abdomen:? Soft, nontender, nondistended, normoactive bowel sounds Extremities:? No edema, palpable pedal pulse, right radial artery was palpable. No evidence of ecchymosis or hematoma at the site of coronary angiogram Neuro:? Patient is awake, alert, oriented, nonfocal, answers to questions appropriately and follows simple commands in all extremities Skin:? Warm and dry, no skin lesions noted Psych:? Normal mentation and affect Results Labs 03/23/25 07:39 03/23/25 07:39 Labs: Short CBC 03/22/25 03/23/25 Range/Units 13:09 07:39 WBC 9.7 13.6 H (4.5-10.0) K/mm3 Hgb 14.7 13.8 (12.0-15.0) g/dL Hct 42.2 39.6 (37.0-47.0) % Plt Count 187 205 (150-375) k/mm3 BMP 03/22/25 03/23/25 13:09 07:39 Sodium 139 135 L Potassium 3.3 L 4.0 Chloride 103 105 Carbon Dioxide 22 21 L BUN 24 H 25 H Creatinine 1.01 H 0.80 Glucose 188 H 159 H Calcium 10.6 H 9.8 Cardiac Enzymes 03/22/25 03/22/25 03/22/25 Range/Units 13:09 15:51 19:29 Troponin I 1.690 H* > 80.000 H* D > 80.000 H* (0.000-0.034) ng/mL Liver Function 03/22/25 03/23/25 Range/Units 13:09 07:39 Total Bilirubin 0.7 1.1 (0.2-1.3) mg/dL AST 53 H 660 H (14-36) U/L ALT 35 113 H (6-35) U/L Alkaline Phosphatase 104 91 (38-126) U/L Albumin 4.7 4.2 (3.5-5.1) g/dL
--- NOTE | 2025-03-23 09:14 | PM.PNCARD ---
Progress Note: A&P Assessment and Plan (1) ST elevation (STEMI) myocardial infarction: Code(s): I21.3 - ST elevation (STEMI) myocardial infarction of unspecified site Status: Acute (2) Tobacco abuse: Code(s): Z72.0 - Tobacco use Status: Acute (3) Hypertension: Code(s): I10 - Essential (primary) hypertension Status: Acute (4) Paroxysmal atrial fibrillation: Code(s): I48.0 - Paroxysmal atrial fibrillation Status: Acute Plan 74-year-old woman with hypertension, hyperlipidemia, and tobacco abuse presented with chest discomfort found to have delay presentation anterior ST-elevation MT for which primary PCI was performed with residual obstructive disease in the ramus branch Anterior ST-elevation MT -status post PCI with overlapping stents in the LAD -continue aspirin 81 mg p.o. daily and Brilinta 90 mg p.o. b.i.d. -medications to be sent to her pharmacy at which point patient would like to know the cost prior to proceeding Coronary artery disease -consider outpatient staged PCI to the ramus branch Paroxysmal atrial fibrillation -incidentally noted on telemetry overnight and likely secondary to ischemic event -outpatient re-evaluation to determine if 30 day event monitor is warranted Hypertension -losartan 25 mg p.o. daily and carvedilol 6.25 mg p.o. b.i.d. added to her regimen -can continue amlodipine 7.5 mg p.o. daily for now Hyperlipidemia -atorvastatin 80 mg every evening Active tobacco abuse -tobacco cessation counseling provided for 3 minutes to include medication to help -patient agreed to proceed for with Chantix which has been prescribed Subjective Date/time seen: 03/23/25 09:14 Interval history: Doing well without chest discomfort. Has some slight shortness of breath while sleeping last evening. Review of Systems Cardiovascular: Cardiovascular: Reports as per HPI Respiratory: Respiratory: Reports as per HPI Exam Const: General: comfortable HENMT: Mouth: Yes moist mucous membranes Eyes: EOM: EOMs intact bilaterally Neck: Neck: no JVD Resp: Effort & Inspection: normal respiratory effort Auscultation: clear to auscultation bilaterally Cardio: Rate: regular rate Rhythm: regular rhythm GI: GI Palp: Yes Soft to palpation Neuro: Speech: normal speech Extrem: General: no pedal edema Other: Right radial pulse 2 +. Fingers well perfused. Objective Data Vital Signs Vital Signs: Vital Signs - 24 hr 03/22/25 12:57 03/22/25 13:03 03/22/25 14:50 Temperature 36.6 C Pulse Rate 74 78 77 Respiratory Rate 18 20 15 Blood Pressure 169/115 H 172/116 H 127/89 Pulse Oximetry 100 100 Oxygen Delivery Room Air Fraction of Inspired Oxygen 03/22/25 15:00 03/22/25 15:15 03/22/25 15:30 Temperature Pulse Rate 78 78 87 Respiratory Rate 18 17 22 H Blood Pressure 141/94 H 132/85 133/105 H Pulse Oximetry 97 95 96 Oxygen Delivery Fraction of Inspired Oxygen 03/22/25 15:45 03/22/25 16:00 03/22/25 16:00 Temperature 36.3 C L Pulse Rate 79 87 87 Respiratory Rate 18 19 Blood Pressure 142/96 H 141/87 H Pulse Oximetry 97 99 Oxygen Delivery Fraction of Inspired Oxygen 03/22/25 16:00 03/22/25 16:15 03/22/25 16:30 Temperature Pulse Rate 87 87 91 Respiratory Rate 19 22 H 24 H Blood Pressure 141/87 H 139/89 127/97 H Pulse Oximetry 99 93 90 Oxygen Delivery Fraction of Inspired Oxygen 03/22/25 16:45 03/22/25 17:00 03/22/25 17:15 Temperature Pulse Rate 78 82 76 Respiratory Rate 19 20 18 Blood Pressure 134/107 H 111/92 H Pulse Oximetry 97 95 93 Oxygen Delivery Fraction of Inspired Oxygen 03/22/25 17:47 03/22/25 18:00 03/22/25 18:00 Temperature Pulse Rate 74 75 75 Respiratory Rate 22 H 19 19 Blood Pressure 144/100 H 151/93 H 151/93 H Pulse Oximetry 95 96 96 Oxygen Delivery Fraction of Inspired Oxygen 03/22/25 18:00 03/22/25 18:15 03/22/25 18:30 Temperature Pulse Rate 75 74 75 Respiratory Rate 20 19 Blood Pressure 146/97 H 150/104 H Pulse Oximetry 93 93 Oxygen Delivery Fraction of Inspired Oxygen 03/22/25 18:45 03/22/25 19:08 03/22/25 19:41 Temperature Pulse Rate 75 74 78 Respiratory Rate 23 H 13 26 H Blood Pressure 146/101 H 139/96 H 142/99 H Pulse Oximetry 91 92 95 Oxygen Delivery Fraction of Inspired Oxygen 03/22/25 20:00 03/22/25 20:00 08/06/25 20:00 Temperature 36.5 C Pulse Rate 77 81 Respiratory Rate 20 Blood Pressure 143/100 H Pulse Oximetry 98 Oxygen Delivery Room Air Fraction of Inspired Oxygen 03/22/25 20:33 03/22/25 20:47 03/22/25 21:19 Temperature Pulse Rate 80 74 79 Respiratory Rate 20 22 H 26 H Blood Pressure 148/100 H 156/103 H Pulse Oximetry 95 100 97 Oxygen Delivery Room Air Fraction of Inspired Oxygen 21 03/22/25 21:20 03/22/25 21:35 03/22/25 21:50 Temperature Pulse Rate 78 92 78 Respiratory Rate 24 H 22 H Blood Pressure 162/109 H 137/87 Pulse Oximetry 96 96 Oxygen Delivery Fraction of Inspired Oxygen 03/22/25 22:00 03/22/25 22:00 03/23/25 00:00 Temperature Pulse Rate 79 79 Respiratory Rate 23 H Blood Pressure 149/106 H Pulse Oximetry 95 Oxygen Delivery Room Air Fraction of Inspired Oxygen 03/23/25 00:00 03/23/25 00:00 03/23/25 02:00 Temperature 36.8 C Pulse Rate 76 76 76 Respiratory Rate 23 H Blood Pressure 94/74 L Pulse Oximetry 96 Oxygen Delivery Fraction of Inspired Oxygen 03/23/25 02:00 03/23/25 04:00 03/23/25 04:00 Temperature 36.6 C Pulse Rate 76 77 Respiratory Rate 20 14 Blood Pressure 119/84 133/92 H Pulse Oximetry 96 97 Oxygen Delivery Room Air Fraction of Inspired Oxygen 03/23/25 04:00 03/23/25 06:00 03/23/25 06:00 Temperature Pulse Rate 80 77 77 Respiratory Rate 25 H Blood Pressure 145/108 H Pulse Oximetry 94 Oxygen Delivery Fraction of Inspired Oxygen 03/23/25 07:23 03/23/25 08:00 03/23/25 08:00 Temperature 36.9 C Pulse Rate 90 90 90 Respiratory Rate 18 18 Blood Pressure 142/99 H Pulse Oximetry 98 98 Oxygen Delivery Room Air Fraction of Inspired Oxygen 21 03/23/25 08:52 Temperature Pulse Rate 81 Respiratory Rate Blood Pressure Pulse Oximetry Oxygen Delivery Fraction of Inspired Oxygen Intake/Output Intake/Output: Intake & Output 03/20/25 03/21/25 03/22/25 03/23/25 23:59 23:59 23:59 23:59 Intake Total 322.8 320 Output Total 100 600 Balance 222.8 -280 Meds/Results Medications: Active Medications Generic Name Dose Route Start Last Admin Trade Name Pito PRN Reason Stop Dose Admin Amlodipine Besylate 7.5 mg 03/23/25 09:00 03/23/25 08:50 Amlodipine Besylate 2.5 Mg Tablet PO 7.5 mg DAILY VICTORIANO Administration Aspirin 81 mg 03/23/25 09:00 03/23/25 08:51 Aspirin 81 Mg Enteric Tablet PO 81 mg QAM VICTORIANO Administration Atorvastatin Calcium 80 mg 03/22/25 21:00 03/23/25 08:51 Atorvastatin 40 Mg Tablet PO 80 mg DAILY VICTORIANO Administration Carvedilol 6.25 mg 03/23/25 09:00 03/23/25 08:52 Carvedilol 3.125 Mg Tablet PO 6.25 mg Q12HR VICTORIANO Administration Hydralazine HCl 10 mg 03/22/25 18:40 Hydralazine Hcl 20 Mg/Ml Vial IV PUSH Q4HR PRN Blood Pressure - High Losartan Potassium 25 mg 03/23/25 09:00 03/23/25 08:52 Losartan Potassium 25 Mg Tablet PO 25 mg DAILY VICTORIANO Administration Perflutren Lipid Microsphere 0 ml 03/22/25 15:02 Perflutren Lipid Microspheres 1.5 Ml Vial Diluted To 10 Ml Total Volume IV PUSH 03/25/25 15:03 ONCE PRN adequate visualization Protocol Ticagrelor 90 mg 03/22/25 21:00 03/23/25 08:52 Ticagrelor 90 Mg Tablet PO 90 mg Q12HR VICTORIANO Administration Labs Labs: Laboratory Results - last 24 hr 03/22/25 03/22/25 03/22/25 13:08 13:09 15:51 WBC 9.7 RBC 4.70 Hgb 14.7 Hct 42.2 MCV 89.8 MCH 31.3 MCHC 34.8 RDW 12.5 Plt Count 187 MPV 9.7 Immature Gran % (Auto) 0.4 Neut % (Auto) 84.9 H Lymph % (Auto) 9.0 L [place] % (Auto) 4.9 Eos % (Auto) 0.5 Baso % (Auto) 0.3 Lymph # (Auto) 0.87 L [place] # (Auto) 0.5 Eos # (Auto) 0.1 Baso # (Auto) 0.0 Abs Immat Gran (auto) 0.04 H Absolute Neuts (auto) 8.2 H Absolute Nucleated RBC 0.000 Nucleated RBC % 0.0 PT 12.1 INR 0.9 APTT 20.5 L Sodium 139 Potassium 3.3 L Chloride 103 Carbon Dioxide 22 Anion Gap 14 H BUN 24 H Creatinine 1.01 H Estim Creat Clear Calc 39 Estimated GFR 54 L Glucose 188 H Hemoglobin A1c 5.9 H Calcium 10.6 H Phosphorus Magnesium Total Bilirubin 0.7 AST 53 H ALT 35 Alkaline Phosphatase 104 Troponin I 1.690 H* > 80.000 H* D NT-Pro-B Natriuret Pep 802 H Total Protein 7.2 Albumin 4.7 Triglycerides 137 136 Cholesterol 228 H 226 H LDL Cholesterol Direct 123 117 HDL Direct 76 78 Nasal MRSA (PCR) Not detected Blood Type B Positive Antibody Screen Negative 03/22/25 03/23/25 03/23/25 19:29 07:39 07:39 WBC 13.6 H RBC 4.40 Hgb 13.8 Hct 39.6 MCV 90.0 MCH 31.4 MCHC 34.8 RDW 13.0 Plt Count 205 MPV 9.9 Immature Gran % (Auto) 0.5 Neut % (Auto) 86.4 H Lymph % (Auto) 5.2 L [place] % (Auto) 7.7 Eos % (Auto) 0.1 Baso % (Auto) 0.1 L Lymph # (Auto) 0.71 L [place] # (Auto) 1.1 H Eos # (Auto) 0.0 Baso # (Auto) 0.0 Abs Immat Gran (auto) 0.07 H Absolute Neuts (auto) 11.7 H Absolute Nucleated RBC 0.000 Nucleated RBC % 0.0 PT INR APTT Sodium 135 L Potassium 4.0 Chloride 105 Carbon Dioxide 21 L Anion Gap 9 BUN 25 H Creatinine 0.80 Estim Creat Clear Calc 49 Estimated GFR > 60 Glucose 159 H Hemoglobin A1c Calcium 9.8 Phosphorus 2.8 Cancelled Magnesium 1.8 Total Bilirubin AST ALT Alkaline Phosphatase Troponin I > 80.000 H* NT-Pro-B Natriuret Pep Total Protein Albumin Triglycerides Cholesterol LDL Cholesterol Direct HDL Direct Nasal MRSA (PCR) Blood Type Antibody Screen 03/23/25 07:39 WBC RBC Hgb Hct MCV MCH MCHC RDW Plt Count MPV Immature Gran % (Auto) Neut % (Auto) Lymph % (Auto) [place] % (Auto) Eos % (Auto) Baso % (Auto) Lymph # (Auto) [place] # (Auto) Eos # (Auto) Baso # (Auto) Abs Immat Gran (auto) Absolute Neuts (auto) Absolute Nucleated RBC Nucleated RBC % PT INR APTT Sodium Potassium Chloride Carbon Dioxide Anion Gap BUN Creatinine Estim Creat Clear Calc Estimated GFR Glucose Hemoglobin A1c Calcium Phosphorus Magnesium Cancelled Total Bilirubin 1.1 AST 660 H ALT 113 H Alkaline Phosphatase 91 Troponin I NT-Pro-B Natriuret Pep Total Protein 6.6 Albumin 4.2 Triglycerides Cholesterol LDL Cholesterol Direct HDL Direct Nasal MRSA (PCR) Blood Type Antibody Screen
[2025-03-23] MEDS: FUROSEMIDE INJ 40 MG/4 ML VIAL IV PUSH (09:47)
[2025-03-23] MEDS: PERFLUTREN LIPID MICROSPHERES 1.5 ML VIAL DILUTED TO 10 ML TOTAL VOLUME IV PUSH (13:07)
--- NOTE | 2025-03-23 13:07 | IVDEFINITY ---
Prior to administration of IV Definity the patient was educated on the risks and benefits of the imaging enhancing agent including potential adverse side effects. The patient verbalized understanding. Allergies were verified. No exclusion criteria were identified and at least one of the following inclusion criteria were met: 1) physician request, 2) patient technically difficult to image (per the [place] [employer]ocardi[employer] guidelines of two or more segments not discernable within the apical view), or 3) questionable left ventricular function. ?
[2025-03-23] MEDS: SACUBITRIL/VALSARTAN 24-26 MG TABLET 1 TAB PO (20:20)
--- NOTE | 2025-03-23 22:54 | ECG_ITS ---
Test Date: 2025-03-23 22:58:21 Measurements Intervals [place] Rate: 134 P: 0 MI: 0 QRS: -14 QRSD: 106 T: 75 QT: 312 QTc: 467 Interpretive Statements ATRIAL FIBRILLATION WITH RAPID VENTRICULAR RESPONSE WITH ABERRANT CONDUCTION OR VENTRICULAR PREMATURE COMPLEXES CONSIDER INFERIOR INFARCT, AGE INDETERMINATE ANTEROSEPTAL ST ELEVATION MYOCARDIAL INFARCT- ACUTE BASELINE ARTIFACT- I, II, III, AVR, AVL ,AVF, V1-V3 ABNORMAL ECG Compared to ECG 03/23/2025 01:02:11 SINUS RHYTHM NO LONGER PRESENT Ventricular premature complex(es) now present ST ELEVATION NOW INCREASED Electronically Signed On 03-24-2025 06:29:41 CDT by Bipin Rodriguez D.O.
[2025-03-24] VITALS (21 sets, daily range): BP systolic 79–118; BP diastolic 51–90; PULSE 65–129; RESP 17–31; TEMP 36.4–37.3; O2SAT 94–99
[2025-03-24 01:06] LABS: Anion Gap 9 mmol/L (4-12); Blood Urea Nitrogen 34 mg/dL (7-17); Calcium 9.3 mg/dL (8.4-10.2); Carbon Dioxide 23 mmol/L (22-30); Chloride 102 mmol/L (98-107); Estimated CRCL calculation 40 ml/min; Estimated Glomerular Filt Rate 55; Glucose 142 mg/dL (65-110); Magnesium 1.9 mg/dL (1.6-2.3); Potassium 3.1 mmol/L (3.4-5.0); Sodium 134 mmol/L (137-145)
[2025-03-24] MEDS: ATORVASTATIN 40 MG TABLET 80 MG PO (08:21)
[2025-03-24] MEDS: TICAGRELOR 90 MG TABLET PO ×2 (08:21→20:08)
[2025-03-24] MEDS: ASPIRIN 81 MG ENTERIC TABLET PO (08:21)
--- NOTE | 2025-03-24 09:25 | PM.PNCARD ---
Progress Note: A&P Assessment and Plan (1) ST elevation (STEMI) myocardial infarction: Code(s): I21.3 - ST elevation (STEMI) myocardial infarction of unspecified site Status: Acute Plan 74-year-old lady with: History of hypertension and cigarette smoking presenting with anterior wall infarction. Unfortunately late presentation. Dual anti-platelet therapy is on board. She will have her Entresto and losartan held today and hopefully can be slowly reinstituted over the weekend. She had paroxysmal atrial fib last evening which resolved without any treatment. If this continues or recurs again we will need to start amiodarone. Prognosis is obviously guarded in this situation. Patient was told that she will not be able to continue her routine lifestyle caring for her own home, yd work etc. at the time of discharge. Beto Fonseca MD [facility] Subjective Date/time seen: Date of service: 03/24/25 09:25 Interval history: Follow-up visit in this 74-year-old lady with: Coronary artery disease presenting with acute anterior wall infarction, unfortunately late presentation. Patient underwent successful PCI with thrombectomy and stenting of the LAD with good angiographic result but with a large area of infarction. She feels relatively well this morning she had some pericardial sounding pain earlier today with inspiration that is has resolved. She has large area of infarction with low ejection fraction by echo yesterday. This is as expected. Entresto and losartan are being held because of hypotension following last night's doses. Amlodipine has been discontinued. Spoke to patient at length about her low ejection fraction, need for slowly reinstituting guideline directed medical therapy for this as well as the need for a LifeVest device at the time of discharge. Do not anticipate discharge until sometime next week at the earliest given this somewhat tenuous hemodynamic situation Exam Narrative: PHYSICAL EXAMINATION: GENERAL: Alert, oriented, distress due to ongoing chest pain MENTAL STATUS: Anxious EYES: Extraocular movements intact, no pallor EARS: External ears appear normal, hearing grossly normal NOSE: Normal and patent, no discharge MOUTH: Mucous membranes moist, tongue normal NECK: Supple, no JVD CHEST: Coarse breath sounds HEART: Normal rate, regular rhythm, normal S1 and S2, S4 gallop ABDOMEN: Soft, nontender NEUROLOGICAL: Alert, oriented, normal speech, no gross motor deficits MUSCULOSKELETAL: No major deformity, no amputation EXTREMITIES: No pedal edema, no clubbing, no cyanosis SKIN: no rash on the exposed area, no cyanosis PSYCHIATRIC: Anxious Const: General: comfortable HENMT: Mouth: Yes moist mucous membranes Eyes: EOM: EOMs intact bilaterally Neck: Neck: no JVD Resp: Effort & Inspection: normal respiratory effort Auscultation: clear to auscultation bilaterally Cardio: Rate: regular rate Rhythm: regular rhythm Neuro: Speech: normal speech Extrem: General: no pedal edema Other: Right radial pulse 2 +. Fingers well perfused. Objective Data Vital Signs Vital Signs: Vital Signs - 24 hr 03/23/25 10:00 03/23/25 10:00 03/23/25 11:55 Temperature 36.4 C Pulse Rate 77 77 75 Respiratory Rate 16 18 Blood Pressure 120/89 121/84 Pulse Oximetry 98 Oxygen Delivery Fraction of Inspired Oxygen 03/23/25 12:00 03/23/25 12:00 03/23/25 14:00 Temperature Pulse Rate 75 83 78 Respiratory Rate 18 Blood Pressure Pulse Oximetry 98 Oxygen Delivery Room Air Fraction of Inspired Oxygen 21 03/23/25 14:00 03/23/25 16:00 03/23/25 16:00 Temperature Pulse Rate 78 78 78 Respiratory Rate 16 25 H Blood Pressure Pulse Oximetry 97 97 Oxygen Delivery Room Air Fraction of Inspired Oxygen 21 03/23/25 16:00 03/23/25 18:00 03/23/25 20:00 Temperature Pulse Rate 78 88 Respiratory Rate 25 H Blood Pressure 107/78 Pulse Oximetry 97 Oxygen Delivery Room Air Fraction of Inspired Oxygen 03/23/25 20:00 03/23/25 20:00 03/23/25 20:20 Temperature 37.4 C Pulse Rate 85 85 81 Respiratory Rate 26 H Blood Pressure 111/81 Pulse Oximetry 95 Oxygen Delivery Fraction of Inspired Oxygen 03/23/25 22:00 03/24/25 00:00 03/24/25 00:00 Temperature Pulse Rate 73 76 Respiratory Rate Blood Pressure Pulse Oximetry Oxygen Delivery Room Air Fraction of Inspired Oxygen 03/24/25 00:00 03/24/25 02:00 03/24/25 04:00 Temperature 37.3 C Pulse Rate 76 75 73 Respiratory Rate 18 Blood Pressure 103/72 Pulse Oximetry 94 Oxygen Delivery Fraction of Inspired Oxygen 03/24/25 04:00 03/24/25 06:00 03/24/25 08:00 Temperature 37.2 C 36.6 C Pulse Rate 73 71 89 Respiratory Rate 17 22 H Blood Pressure 118/69 Pulse Oximetry 96 96 Oxygen Delivery Fraction of Inspired Oxygen Intake/Output Intake/Output: Intake & Output 03/21/25 03/22/25 03/23/25 03/24/25 23:59 23:59 23:59 23:59 Intake Total 322.8 1100 240 Output Total 100 900 200 Balance 222.8 200 40 Meds/Results Medications: Active Medications Generic Name Dose Route Start Last Admin Trade Name Freq PRN Reason Stop Dose Admin Aspirin 81 mg 03/23/25 09:00 03/24/25 08:21 Aspirin 81 Mg Enteric Tablet PO 81 mg QAM VICTORIANO Administration Atorvastatin Calcium 80 mg 03/22/25 21:00 03/24/25 08:21 Atorvastatin 40 Mg Tablet PO 80 mg DAILY VICTORIANO Administration Carvedilol 6.25 mg 03/23/25 09:00 03/23/25 20:20 Carvedilol 3.125 Mg Tablet PO 6.25 mg Q12HR VICTORIANO Administration Hydralazine HCl 10 mg 03/22/25 18:40 Hydralazine Hcl 20 Mg/Ml Vial IV PUSH Q4HR PRN Blood Pressure - High Sacubitril/Valsartan 1 tab 03/23/25 21:00 03/23/25 20:20 Sacubitril/Valsartan 24-26 Mg Tablet PO 1 tab Q12HR VICTORIANO Administration Ticagrelor 90 mg 03/22/25 21:00 03/24/25 08:21 Ticagrelor 90 Mg Tablet PO 90 mg Q12HR VICTORIANO Administration Labs Labs: Laboratory Results - last 24 hr 03/24/25 00:45 Sodium 134 L Potassium 3.1 L Chloride 102 Carbon Dioxide 23 Anion Gap 9 BUN 34 H Creatinine 0.99 Estim Creat Clear Calc 40 Estimated GFR 55 L Glucose 142 H Calcium 9.3 Magnesium 1.9
--- NOTE | 2025-03-24 12:22 | PC.NURSE ---
[facility] flyer was given to patient.
[2025-03-24] MEDS: POTASSIUM CHLORIDE 20 MEQ ER TABLET 40 MEQ PO (16:00)
[2025-03-25] VITALS (19 sets, daily range): BP systolic 89–144; BP diastolic 54–84; PULSE 63–89; RESP 20–30; TEMP 36.6–37.2; O2SAT 94–100
[2025-03-25] MEDS: ATORVASTATIN 40 MG TABLET 80 MG PO (08:41)
[2025-03-25] MEDS: ASPIRIN 81 MG ENTERIC TABLET PO (08:41)
[2025-03-25] MEDS: TICAGRELOR 90 MG TABLET PO ×2 (08:41→20:22)
--- NOTE | 2025-03-25 13:23 | P.PNCA_ITS ---
Progress Note: A&P Assessment and Plan (1) ST elevation (STEMI) myocardial infarction: Code(s): I21.3 - ST elevation (STEMI) myocardial infarction of unspecified site Status: Acute Plan Late pattern Anterior wall AL status post PCI with RENAE Ischemic cardiomyopathy ejection 25% Proximal atrial fibrillation Intermittent hypertension was medication on hold Plan Aspirin Brilinta Statin Start Entresto - half a tablet p.o. b.i.d. Subjective Date/time seen: 03/25/25 13:23 Interval history: Reason for encounter follow-up for late pattern anterior wall AL Chief complaint no symptoms Interval history intermittent hypertension and entresto has been on hold Telemetry sinus rhythm with frequent PVCs and PACs Review of Systems Review of Systems: All systems reviewed & are unremarkable except as noted in HPI and below Exam Narrative: PHYSICAL EXAMINATION: GENERAL: Alert, oriented, distress due to ongoing chest pain MENTAL STATUS: Anxious EYES: Extraocular movements intact, no pallor EARS: External ears appear normal, hearing grossly normal NOSE: Normal and patent, no discharge MOUTH: Mucous membranes moist, tongue normal NECK: Supple, no JVD CHEST: Coarse breath sounds HEART: Normal rate, regular rhythm, normal S1 and S2, S4 gallop ABDOMEN: Soft, nontender NEUROLOGICAL: Alert, oriented, normal speech, no gross motor deficits MUSCULOSKELETAL: No major deformity, no amputation EXTREMITIES: No pedal edema, no clubbing, no cyanosis SKIN: no rash on the exposed area, no cyanosis PSYCHIATRIC: Anxious Const: General: comfortable HENMT: Mouth: Yes moist mucous membranes Eyes: EOM: EOMs intact bilaterally Neck: Neck: no JVD Resp: Effort & Inspection: normal respiratory effort Auscultation: clear to auscultation bilaterally Cardio: Rate: regular rate Rhythm: regular rhythm Neuro: Speech: normal speech Extrem: General: no pedal edema Other: Right radial pulse 2 +. Fingers well perfused. Objective Data Vital Signs Vital Signs: Vital Signs - 24 hr 03/24/25 14:00 03/24/25 15:22 03/24/25 16:00 Temperature Pulse Rate 119 H 129 H 73 Respiratory Rate 20 Blood Pressure 107/51 L 103/90 Pulse Oximetry Oxygen Delivery 03/24/25 16:00 03/24/25 16:00 03/24/25 16:07 Temperature 36.6 C Pulse Rate 77 84 75 Respiratory Rate 22 H Blood Pressure 103/90 103/90 Pulse Oximetry 98 Oxygen Delivery 03/24/25 17:56 03/24/25 18:00 03/24/25 19:00 Temperature Pulse Rate 77 68 68 Respiratory Rate Blood Pressure 88/62 L 93/66 L Pulse Oximetry Oxygen Delivery 03/24/25 20:00 03/24/25 20:00 03/24/25 20:00 Temperature Pulse Rate 67 67 Respiratory Rate Blood Pressure 92/64 L Pulse Oximetry Oxygen Delivery Room Air 03/24/25 20:00 03/24/25 20:23 03/24/25 21:51 Temperature 37.2 C Pulse Rate 69 74 Respiratory Rate 31 H Blood Pressure 92/64 L 105/68 Pulse Oximetry 99 96 Oxygen Delivery Room Air 03/24/25 22:00 03/24/25 22:00 03/24/25 22:09 Temperature Pulse Rate 69 69 69 Respiratory Rate Blood Pressure 97/59 L 97/59 L Pulse Oximetry Oxygen Delivery 03/24/25 23:45 03/25/25 00:00 03/25/25 00:00 Temperature 36.7 C Pulse Rate 78 68 Respiratory Rate 21 H Blood Pressure 95/61 L Pulse Oximetry 96 Oxygen Delivery Room Air 03/25/25 00:03 03/25/25 02:00 03/25/25 02:02 Temperature Pulse Rate 73 68 70 Respiratory Rate Blood Pressure 95/61 L 92/57 L Pulse Oximetry Oxygen Delivery 03/25/25 04:00 03/25/25 04:00 03/25/25 04:00 Temperature 37.2 C Pulse Rate 65 66 66 Respiratory Rate 30 H Blood Pressure 102/69 89/54 L Pulse Oximetry 94 Oxygen Delivery 03/25/25 04:00 03/25/25 06:00 03/25/25 06:00 Temperature Pulse Rate 63 63 Respiratory Rate Blood Pressure 102/72 Pulse Oximetry Oxygen Delivery Room Air 03/25/25 08:00 03/25/25 08:00 03/25/25 08:00 Temperature 36.8 C Pulse Rate 71 70 77 Respiratory Rate 22 H Blood Pressure 106/75 106/75 Pulse Oximetry Oxygen Delivery 03/25/25 08:21 03/25/25 10:00 03/25/25 10:00 Temperature Pulse Rate 89 89 Respiratory Rate Blood Pressure 136/81 Pulse Oximetry 100 Oxygen Delivery 03/25/25 10:29 03/25/25 11:34 08/09/25 12:00 Temperature 36.7 C Pulse Rate 66 71 71 Respiratory Rate 24 H Blood Pressure 104/64 102/59 L Pulse Oximetry 96 Oxygen Delivery 03/25/25 12:00 03/25/25 13:06 Temperature Pulse Rate 73 71 Respiratory Rate Blood Pressure 102/59 L 94/68 L Pulse Oximetry Oxygen Delivery Intake/Output Intake/Output: Intake & Output 03/22/25 03/23/25 03/24/25 03/25/25 23:59 23:59 23:59 23:59 Intake Total 322.8 1100 1282.5 701.1 Output Total 100 900 300 200 Balance 222.8 200 982.5 501.1 Meds/Results Medications: Active Medications Generic Name Dose Route Start Last Admin Trade Name Freq PRN Reason Stop Dose Admin Amiodarone HCl 400 mg 03/26/25 08:00 Amiodarone Hcl 200 Mg Tablet PO DAILY@0800 [facility] Aspirin 81 mg 03/23/25 09:00 03/25/25 08:41 Aspirin 81 Mg Enteric Tablet PO 81 mg QAM VICTORIANO Administration Atorvastatin Calcium 80 mg 03/22/25 21:00 03/25/25 08:41 Atorvastatin 40 Mg Tablet PO 80 mg DAILY VICTORIANO Administration Carvedilol 6.25 mg 03/23/25 09:00 03/24/25 09:51 Carvedilol 3.125 Mg Tablet PO Not Given Q12HR [facility] Hydralazine HCl 10 mg 03/22/25 18:40 Hydralazine Hcl 20 Mg/Ml Vial IV PUSH Q4HR PRN Blood Pressure - High Sacubitril/Valsartan 1 tab 03/23/25 21:00 03/24/25 09:52 Sacubitril/Valsartan 24-26 Mg Tablet PO Not Given Q12HR VICTORIANO Sacubitril/Valsartan 1 tab 03/25/25 21:00 Sacubitril/Valsartan 12-13 Mg Tablet PO Q12HR VICTORIANO Ticagrelor 90 mg 03/22/25 21:00 03/25/25 08:41 Ticagrelor 90 Mg Tablet PO 90 mg Q12HR VICTORIANO Administration
[2025-03-25] MEDS: POTASSIUM CHLORIDE 20 MEQ ER TABLET 40 MEQ PO (18:47)
[2025-03-25] MEDS: SACUBITRIL/VALSARTAN 12-13 MG TABLET 1 TAB PO (20:22)
[2025-03-26] VITALS (18 sets, daily range): BP systolic 93–112; BP diastolic 47–78; PULSE 61–110; RESP 17–24; TEMP 36.4–37; O2SAT 95–100
[2025-03-26] MEDS: TICAGRELOR 90 MG TABLET PO (08:24)
[2025-03-26] MEDS: ATORVASTATIN 40 MG TABLET 80 MG PO (08:24)
[2025-03-26] MEDS: ASPIRIN 81 MG ENTERIC TABLET PO (08:24)
[2025-03-26] MEDS: SACUBITRIL/VALSARTAN 12-13 MG TABLET 1 TAB PO ×2 (08:24→21:24)
--- NOTE | 2025-03-26 08:57 | PM.IMPN ---
Progress Note: A&P Assessment and Plan (1) ST elevation (STEMI) myocardial infarction: Code(s): I21.3 - ST elevation (STEMI) myocardial infarction of unspecified site Status: Acute Assessment and Plan: 03/22/2025: Patient presented with chest pain, nausea, fatigue, radiation to the left arm along with diaphoresis. Status post PCI with overlapping RENAE x2 to the LAD. Status post Integrilin infusion -continue aspirin, Brilinta, beta-jacki, Entresto -outpatient will need PCI to the ramus branch per Cardiology - EF by echo 03/23 25-30% (2) Hypertension: Code(s): I10 - Essential (primary) hypertension Status: Acute Assessment and Plan: Continue carvedilol and Entresto 03/26 BP 103/47 (3) Paroxysmal atrial fibrillation: Code(s): I48.0 - Paroxysmal atrial fibrillation Status: Acute Assessment and Plan: Continue amiodarone (4) Tobacco abuse: Code(s): Z72.0 - Tobacco use Status: Acute Assessment and Plan: Counseled patient cessation of smoking/tobacco abuse 03/26/2025 (5) Hyperlipidemia: Code(s): E78.5 - Hyperlipidemia, unspecified Status: Acute Assessment and Plan: Continue atorvastatin Subjective Date/time seen: 03/26/25 08:57 Interval history: S/p STEMI with thrombectomy and stents 03/22. Ate well. Had loose stool x2 this AM after breakfast. Mild chest discomfort with respiration, left inframammary. No chest discomfort with ambulation. Review of Systems Review of Systems: All systems reviewed & are unremarkable except as noted in HPI and below Exam Narrative: HEENT: PERRL, sclerae nonicteric, pharyngeal mucosa pink and intact NECK: No JVD CHEST: Clear to auscultation. Normal effort HEART: NL S1/S2, regular, no murmur ABDOMEN: BS+, soft, nontender, no mass, no bruits EXTREMITIES: No cyanosis, edema, or clubbing NEUROLOGIC: CN intact and symmetric to inspection MUSCULOSKELETAL: Tone and strength symmetric PSYCH: Alert. Oriented to person, place, and time Objective Data Vital Signs Vital Signs: Vital Signs - 24 hr 03/25/25 10:00 03/25/25 10:00 03/25/25 10:29 Temperature Pulse Rate 89 89 66 Respiratory Rate Blood Pressure 136/81 104/64 Pulse Oximetry Oxygen Delivery 03/25/25 11:34 03/25/25 12:00 03/25/25 12:00 Temperature 98.1 F Pulse Rate 71 71 73 Respiratory Rate 24 H Blood Pressure 102/59 L 102/59 L Pulse Oximetry 96 Oxygen Delivery 03/25/25 13:06 03/25/25 14:00 03/25/25 16:00 Temperature 97.9 F Pulse Rate 71 72 80 Respiratory Rate 20 Blood Pressure 94/68 L 144/84 H Pulse Oximetry 100 Oxygen Delivery 03/25/25 16:00 03/25/25 16:00 03/25/25 18:00 Temperature Pulse Rate 69 78 Respiratory Rate Blood Pressure Pulse Oximetry 100 Oxygen Delivery Room Air 03/25/25 20:00 03/25/25 20:00 03/25/25 20:00 Temperature 98.7 F Pulse Rate 74 75 Respiratory Rate 20 Blood Pressure 107/72 Pulse Oximetry 100 Oxygen Delivery Room Air 03/25/25 21:57 03/25/25 22:00 03/26/25 00:00 Temperature Pulse Rate 70 Respiratory Rate Blood Pressure Pulse Oximetry 100 Oxygen Delivery Room Air Room Air 03/26/25 00:00 03/26/25 00:23 03/26/25 02:00 Temperature 98.6 F Pulse Rate 69 62 69 Respiratory Rate 20 Blood Pressure 93/60 L Pulse Oximetry 98 Oxygen Delivery 03/26/25 03:11 03/26/25 04:00 03/26/25 04:00 Temperature 98.5 F Pulse Rate 71 67 Respiratory Rate 18 Blood Pressure 102/78 Pulse Oximetry 97 Oxygen Delivery Room Air 03/26/25 06:00 03/26/25 08:00 Temperature 97.7 F Pulse Rate 110 H 68 Respiratory Rate 24 H Blood Pressure 103/47 L Pulse Oximetry 100 Oxygen Delivery Intake/Output Intake/Output: Intake & Output 03/23/25 03/24/25 03/25/25 03/26/25 23:59 23:59 23:59 23:59 Intake Total 1100 1282.5 1361.1 520 Output Total 900 300 600 130 Balance 200 982.5 761.1 390 Meds/Results Medications: Active Medications Generic Name Dose Route Start Last Admin Trade Name Freq PRN Reason Stop Dose Admin Amiodarone HCl 400 mg 03/26/25 08:00 Amiodarone Hcl 200 Mg Tablet PO DAILY@0800 [facility] Aspirin 81 mg 03/23/25 09:00 03/26/25 08:24 Aspirin 81 Mg Enteric Tablet PO 81 mg QAM VICTORIANO Administration Atorvastatin Calcium 80 mg 03/22/25 21:00 03/26/25 08:24 Atorvastatin 40 Mg Tablet PO 80 mg DAILY VICTORIANO Administration Carvedilol 6.25 mg 03/23/25 09:00 03/24/25 09:51 Carvedilol 3.125 Mg Tablet PO Not Given Q12HR VICTORIANO Hydralazine HCl 10 mg 03/22/25 18:40 Hydralazine Hcl 20 Mg/Ml Vial IV PUSH Q4HR PRN Blood Pressure - High Sacubitril/Valsartan 1 tab 03/23/25 21:00 03/24/25 09:52 Sacubitril/Valsartan 24-26 Mg Tablet PO Not Given Q12HR VICTORIANO Sacubitril/Valsartan 1 tab 03/25/25 21:00 03/26/25 08:24 Sacubitril/Valsartan 12-13 Mg Tablet PO 1 tab Q12HR VICTORIANO Administration Ticagrelor 90 mg 03/22/25 21:00 03/26/25 08:24 Ticagrelor 90 Mg Tablet PO 90 mg Q12HR VICTORIANO Administration
[2025-03-26 09:21] LABS: Anion Gap 8 mmol/L (4-12); Blood Urea Nitrogen 34 mg/dL (7-17); Calcium 9.4 mg/dL (8.4-10.2); Carbon Dioxide 21 mmol/L (22-30); Chloride 108 mmol/L (98-107); Estimated CRCL calculation 38 ml/min; Estimated Glomerular Filt Rate 51; Glucose 148 mg/dL (65-110); Magnesium 2.2 mg/dL (1.6-2.3); Potassium 4.0 mmol/L (3.4-5.0); Sodium 137 mmol/L (137-145)
[2025-03-26] MEDS: AMIODARONE HCL 200 MG TABLET 400 MG PO (12:08)
[2025-03-26] MEDS: ACETAMINOPHEN 325 MG TABLET 650 MG PO (12:09)
--- NOTE | 2025-03-26 12:35 | P.PNCA_ITS ---
Progress Note: A&P Assessment and Plan (1) ST elevation (STEMI) myocardial infarction: Code(s): I21.3 - ST elevation (STEMI) myocardial infarction of unspecified site Status: Acute Plan Late pattern Anterior wall NE status post PCI with RENAE Ischemic cardiomyopathy ejection 25% Proximal atrial fibrillation Intermittent hypertension was medication on hold Plan Aspirin DC Brilinta Start Eliquis 5 mg b.i.d. Statin And Coreg 3.125 mg daily Continue Entresto 24-26 p.o. half a tablet b.i.d. Subjective Date/time seen: 03/26/25 12:35 Interval history: Reason for encounter follow-up for late pattern anterior wall NE Chief complaint no symptoms Interval history no acute events Telemetry paroxysmal atrial fibrillation Review of Systems Review of Systems: All systems reviewed & are unremarkable except as noted in HPI and below Exam Const: General: comfortable HENMT: Mouth: Yes moist mucous membranes Eyes: EOM: EOMs intact bilaterally Neck: Neck: no JVD Resp: Effort & Inspection: normal respiratory effort Auscultation: clear to auscultation bilaterally Cardio: Rate: regular rate Rhythm: regular rhythm Neuro: Speech: normal speech Extrem: General: no pedal edema Other: Right radial pulse 2 +. Fingers well perfused. Objective Data Vital Signs Vital Signs: Vital Signs - 24 hr 03/25/25 13:06 03/25/25 14:00 03/25/25 16:00 Temperature 36.6 C Pulse Rate 71 72 80 Respiratory Rate 20 Blood Pressure 94/68 L 144/84 H Pulse Oximetry 100 Oxygen Delivery 03/25/25 16:00 03/25/25 16:00 03/25/25 18:00 Temperature Pulse Rate 69 78 Respiratory Rate Blood Pressure Pulse Oximetry 100 Oxygen Delivery Room Air 03/25/25 20:00 03/25/25 20:00 03/25/25 20:00 Temperature 37.1 C Pulse Rate 74 75 Respiratory Rate 20 Blood Pressure 107/72 Pulse Oximetry 100 Oxygen Delivery Room Air 03/25/25 21:57 03/25/25 22:00 03/26/25 00:00 Temperature Pulse Rate 70 Respiratory Rate Blood Pressure Pulse Oximetry 100 Oxygen Delivery Room Air Room Air 03/26/25 00:00 03/26/25 00:23 03/26/25 02:00 Temperature 37.0 C Pulse Rate 69 62 69 Respiratory Rate 20 Blood Pressure 93/60 L Pulse Oximetry 98 Oxygen Delivery 03/26/25 03:11 03/26/25 04:00 03/26/25 04:00 Temperature 36.9 C Pulse Rate 71 67 Respiratory Rate 18 Blood Pressure 102/78 Pulse Oximetry 97 Oxygen Delivery Room Air 03/26/25 06:00 03/26/25 08:00 03/26/25 08:00 Temperature 36.5 C Pulse Rate 110 H 68 Respiratory Rate 24 H Blood Pressure 103/47 L Pulse Oximetry 100 100 Oxygen Delivery Room Air 03/26/25 08:00 03/26/25 10:00 03/26/25 11:45 Temperature 36.4 C Pulse Rate 69 67 66 Respiratory Rate 20 Blood Pressure 98/61 L Pulse Oximetry 99 Oxygen Delivery 03/26/25 12:08 Temperature Pulse Rate 71 Respiratory Rate Blood Pressure Pulse Oximetry Oxygen Delivery Intake/Output Intake/Output: Intake & Output 03/23/25 03/24/25 03/25/25 03/26/25 23:59 23:59 23:59 23:59 Intake Total 1100 1282.5 1361.1 520 Output Total 900 300 600 130 Balance 200 982.5 761.1 390 Meds/Results Medications: Active Medications Generic Name Dose Route Start Last Admin Trade Name Freq PRN Reason Stop Dose Admin Acetaminophen 650 mg 03/26/25 11:41 03/26/25 12:09 Acetaminophen 325 Mg Tablet PO 650 mg Q4H PRN Administration Headache Amiodarone HCl 400 mg 03/26/25 08:00 03/26/25 12:08 Amiodarone Hcl 200 Mg Tablet PO 400 mg DAILY@0800 [facility] Administration Aspirin 81 mg 03/23/25 09:00 03/26/25 08:24 Aspirin 81 Mg Enteric Tablet PO 81 mg QAM VICTORIANO Administration Atorvastatin Calcium 80 mg 03/22/25 21:00 03/26/25 08:24 Atorvastatin 40 Mg Tablet PO 80 mg DAILY VICTORIANO Administration Carvedilol 6.25 mg 03/23/25 09:00 03/24/25 09:51 Carvedilol 3.125 Mg Tablet PO Not Given Q12HR [facility] Sacubitril/Valsartan 1 tab 03/23/25 21:00 03/24/25 09:52 Sacubitril/Valsartan 24-26 Mg Tablet PO Not Given Q12HR [facility] Sacubitril/Valsartan 1 tab 03/25/25 21:00 03/26/25 08:24 Sacubitril/Valsartan 12-13 Mg Tablet PO 1 tab Q12HR VICTORIANO Administration Ticagrelor 90 mg 03/22/25 21:00 03/26/25 08:24 Ticagrelor 90 Mg Tablet PO 90 mg Q12HR VICTORIANO Administration Labs Labs: Laboratory Results - last 24 hr 03/26/25 09:00 Sodium 137 Potassium 4.0 Chloride 108 H Carbon Dioxide 21 L Anion Gap 8 BUN 34 H Creatinine 1.06 H Estim Creat Clear Calc 38 Estimated GFR 51 L Glucose 148 H Calcium 9.4 Magnesium 2.2
[2025-03-26] MEDS: APIXABAN 5 MG TABLET PO (21:24)
[2025-03-27] VITALS (7 sets, daily range): BP systolic 93–115; BP diastolic 64–75; PULSE 56–81; RESP 18–20; TEMP 36.4–36.6; O2SAT 95–99
[2025-03-27 04:25] LABS: Hematocrit 33.5 % (37.0-47.0); Hemoglobin 11.1 g/dL (12.0-15.0); Mean Corpuscular HGB Conc 33.1 g/dl (32-36); Mean Corpuscular Hemoglobin 31.3 pg (26-34); Mean Corpuscular Volume 94.4 fl (80-100); Platelet Count Result 143 k/mm3 (150-375); Red Blood Count 3.55 M/mm3 (4.2-5.4); White Blood Count 5.7 K/mm3 (4.5-10.0)
[2025-03-27 04:37] LABS: Anion Gap 7 mmol/L (4-12); Blood Urea Nitrogen 33 mg/dL (7-17); Calcium 9.1 mg/dL (8.4-10.2); Carbon Dioxide 22 mmol/L (22-30); Chloride 107 mmol/L (98-107); Estimated CRCL calculation 41 ml/min; Estimated Glomerular Filt Rate 56; Glucose 107 mg/dL (65-110); Potassium 3.9 mmol/L (3.4-5.0); Sodium 136 mmol/L (137-145)
--- NOTE | 2025-03-27 08:53 | P.PNIM_ITS ---
Progress Note: A&P Assessment and Plan (1) ST elevation (STEMI) myocardial infarction: Code(s): I21.3 - ST elevation (STEMI) myocardial infarction of unspecified site Status: Acute Assessment and Plan: 03/22/2025: Patient presented with chest pain, nausea, fatigue, radiation to the left arm along with diaphoresis. Status post PCI with overlapping RENAE x2 to the LAD. Status post Integrilin infusion -continue aspirin, Brilinta, beta-jacki, Entresto -outpatient will need PCI to the ramus branch per Cardiology - EF by echo 03/23 25-30% With AFib patient has been started on Eliquis as well. On triple therapy currently. Brilinta switched to Plavix (2) Hypertension: Code(s): I10 - Essential (primary) hypertension Status: Acute Assessment and Plan: Continue carvedilol and Entresto Intermittently hypotensive. Carvedilol on hold. Entresto dose has been reduced. (3) Paroxysmal atrial fibrillation: Code(s): I48.0 - Paroxysmal atrial fibrillation Status: Acute Assessment and Plan: Continue amiodarone and Eliquis Rate controlled (4) Tobacco abuse: Code(s): Z72.0 - Tobacco use Status: Acute Assessment and Plan: Counseled patient cessation of smoking/tobacco abuse 03/26/2025 (5) Hyperlipidemia: Code(s): E78.5 - Hyperlipidemia, unspecified Status: Acute Assessment and Plan: Continue atorvastatin Plan Elevated LFTs will recheck which was improving. cardiomyopathy: per cardiology. getting life vest today. Subjective Date/time seen: 03/27/25 08:53 Interval history: Chart reviewed. Discussed nursing staff. Labs reviewed. no new complaints. remains sinus rhythm. no chest pain or sob Review of Systems Review of Systems: All systems reviewed & are unremarkable except as noted in HPI and below Exam Narrative: HEENT: PERRL, sclerae nonicteric, pharyngeal mucosa pink and intact NECK: No JVD CHEST: Clear to auscultation. Normal effort HEART: NL S1/S2, regular, no murmur ABDOMEN: BS+, soft, nontender, no mass, no bruits EXTREMITIES: No cyanosis, edema, or clubbing NEUROLOGIC: CN intact and symmetric to inspection MUSCULOSKELETAL: Tone and strength symmetric PSYCH: Alert. Oriented to person, place, and time Objective Data Vital Signs Vital Signs: Vital Signs - 24 hr 03/26/25 10:00 03/26/25 11:45 03/26/25 12:00 Temperature 97.6 F Pulse Rate 67 66 Respiratory Rate 20 Blood Pressure 98/61 L Pulse Oximetry 99 99 Oxygen Delivery Room Air Fraction of Inspired Oxygen 03/26/25 12:00 03/26/25 12:08 03/26/25 14:00 Temperature Pulse Rate 70 71 66 Respiratory Rate Blood Pressure Pulse Oximetry Oxygen Delivery Fraction of Inspired Oxygen 03/26/25 16:00 03/26/25 16:00 03/26/25 16:00 Temperature 97.9 F Pulse Rate 68 67 Respiratory Rate 20 Blood Pressure 105/71 Pulse Oximetry 100 100 Oxygen Delivery Room Air Fraction of Inspired Oxygen 03/26/25 18:00 03/26/25 20:00 03/26/25 20:00 Temperature Pulse Rate 61 71 65 Respiratory Rate 20 Blood Pressure Pulse Oximetry 95 Oxygen Delivery Room Air Fraction of Inspired Oxygen 03/26/25 20:24 03/26/25 20:25 03/26/25 23:27 Temperature 98.3 F 98.6 F Pulse Rate 71 65 63 Respiratory Rate 20 20 17 Blood Pressure 112/66 93/55 L Pulse Oximetry 99 95 96 Oxygen Delivery Room Air Fraction of Inspired Oxygen 21 03/26/25 23:48 03/26/25 23:48 03/27/25 02:38 Temperature Pulse Rate 62 62 60 Respiratory Rate 17 Blood Pressure Pulse Oximetry 96 Oxygen Delivery Room Air Fraction of Inspired Oxygen 03/27/25 03:58 03/27/25 04:00 03/27/25 04:00 Temperature 97.9 F Pulse Rate 67 67 67 Respiratory Rate 19 19 Blood Pressure 94/75 L Pulse Oximetry 99 99 Oxygen Delivery Room Air Fraction of Inspired Oxygen 21 03/27/25 06:00 03/27/25 08:00 Temperature 97.9 F Pulse Rate 81 66 Respiratory Rate 18 Blood Pressure 93/74 L Pulse Oximetry 99 Oxygen Delivery Fraction of Inspired Oxygen Intake/Output Intake/Output: Intake & Output 03/24/25 03/25/25 03/26/25 03/27/25 23:59 23:59 23:59 23:59 Intake Total 1282.5 1361.1 1350 480 Output Total 300 600 130 350 Balance 982.5 761.1 1220 130 Meds/Results Medications: Active Medications Generic Name Dose Route Start Last Admin Trade Name Pito PRN Reason Stop Dose Admin Acetaminophen 650 mg 03/26/25 11:41 03/26/25 12:09 Acetaminophen 325 Mg Tablet PO 650 mg Q4H PRN Administration Headache Amiodarone HCl 400 mg 03/26/25 08:00 03/26/25 12:08 Amiodarone Hcl 200 Mg Tablet PO 400 mg DAILY@0800 [facility] Administration Apixaban 5 mg 03/26/25 21:00 03/26/25 21:24 Apixaban 5 Mg Tablet PO 5 mg Q12HR VICTORIANO Administration Aspirin 81 mg 03/23/25 09:00 03/26/25 08:24 Aspirin 81 Mg Enteric Tablet PO 81 mg QAM [facility] Administration Atorvastatin Calcium 80 mg 03/22/25 21:00 03/26/25 08:24 Atorvastatin 40 Mg Tablet PO 80 mg DAILY VICTORIANO Administration Carvedilol 3.125 mg 03/26/25 21:00 Carvedilol 3.125 Mg Tablet PO Q12HR [facility] Clopidogrel Bisulfate 75 mg 03/28/25 09:00 Clopidogrel Bisulfate 75 Mg Tablet PO QAM [facility] Sacubitril/Valsartan 1 tab 03/23/25 21:00 03/24/25 09:52 Sacubitril/Valsartan 24-26 Mg Tablet PO Not Given Q12HR [facility] Sacubitril/Valsartan 1 tab 03/25/25 21:00 03/26/25 21:24 Sacubitril/Valsartan 12-13 Mg Tablet PO 1 tab Q12HR [facility] Administration Labs Labs: Laboratory Results - last 24 hr 03/26/25 03/27/25 09:00 03:49 WBC 5.7 RBC 3.55 L Hgb 11.1 L Hct 33.5 L MCV 94.4 MCH 31.3 MCHC 33.1 RDW 13.1 Plt Count 143 L MPV 11.3 H Sodium 137 136 L Potassium 4.0 3.9 Chloride 108 H 107 Carbon Dioxide 21 L 22 Anion Gap 8 7 BUN 34 H 33 H Creatinine 1.06 H 0.98 Estim Creat Clear Calc 38 41 Estimated GFR 51 L 56 L Glucose 148 H 107 Calcium 9.4 9.1 Magnesium 2.2
[2025-03-27 09:12] LABS: Alanine Aminotransferase 41 U/L (6-35); Albumin Level 3.2 g/dL (3.5-5.1); Alkaline Phosphatase 74 U/L (38-126); Aspartate Amino Transferase 47 U/L (14-36); Bilirubin,Total 0.6 mg/dL (0.2-1.3); Total Protein 5.6 g/dL (6.3-8.2)
[2025-03-27] MEDS: AMIODARONE HCL 200 MG TABLET 400 MG PO (09:51)
[2025-03-27] MEDS: ASPIRIN 81 MG ENTERIC TABLET PO (09:51)
[2025-03-27] MEDS: APIXABAN 5 MG TABLET PO (09:51)
[2025-03-27] MEDS: ATORVASTATIN 40 MG TABLET 80 MG PO (09:51)
[2025-03-27] MEDS: SACUBITRIL/VALSARTAN 12-13 MG TABLET 1 TAB PO (09:51)
[2025-03-27] MEDS: CLOPIDOGREL BISULFATE 300 MG TABLET PO (09:54)
[2025-03-27] MEDS: ACETAMINOPHEN 325 MG TABLET 650 MG PO (10:21)
--- NOTE | 2025-03-27 12:53 | P.DS_ITS ---
DS: Admitting Diagnosis Discharge Date 03/27/2025 Admitting Diagnosis STEMI DS: Discharge Diagnosis Discharge Diagnosis (1) ST elevation (STEMI) myocardial infarction: Code(s): I21.3 - ST elevation (STEMI) myocardial infarction of unspecified site Status: Acute Assessment and Plan: Late presentation anterior wall NC. S/p aspiration thrombectomy of prox LAD and balloon angioplasty and stenting of prox LAD using 4.9 x 30 and 4.0 x 13mm Biotronik sirolimus stents in an overlapping fashion. * Continue DAPT with ASA, Plavix (shifted from Brilinta to decrease bleeding risk with Eliquis) * Will be on triple therapy (ASA, Plavix, Eliquis) x 1 month, then ASA will be discontinued * High intensity statin * Smoking cessation * Cardiac rehab referral sent * Staged PCI of proximal ramus intermedius can be considered * Follow up with me in 2-3 weeks (2) Ischemic cardiomyopathy: Code(s): I25.5 - Ischemic cardiomyopathy Status: Acute Assessment and Plan: EF 25% - 30%. * Continue Entresto * Coreg held because of hypotension - will resume as outpatient * Optimize GDMT as outpatient * LifeVest delivered and fitted today * Repeat limited echo in 2-3 months (3) Hyperlipidemia: Code(s): E78.5 - Hyperlipidemia, unspecified Status: Acute Assessment and Plan: Continue high intensity statin (4) Tobacco abuse: Code(s): Z72.0 - Tobacco use Status: Acute Assessment and Plan: Starting Chantix (5) Paroxysmal atrial fibrillation: Code(s): I48.0 - Paroxysmal atrial fibrillation Status: Acute Assessment and Plan: Continue amiodarone and Eliquis (6) Hypertension: Code(s): I10 - Essential (primary) hypertension Status: Acute Assessment and Plan: At goal. Plan DS: Summary Hospital Course Hospital Course: 74-year-old female with past medical history of hypertension; tobacco abuse. No known prior cardiac history. 03/22/25: Patient presented to [facility] Room via EMS with complaints of chest pain that started yesterday and got worse today. Her symptoms are associated with shortness of breath, dizziness without syncope. Patient denied prior cardiac history including clinical NC, angina, heart failure or any known arrhythmias. Initial EKG showed sinus rhythm, ST-elevation in the leads V1-V3 with reciprocal ST depression in the inferior leads. Cardiac catheterization lab was activated for primary PCI in the setting of late presentation STEMI with ongoing chest pain. Underwent PCI with aspiration thrombectomy of prox LAD and balloon angioplasty and stenting of prox LAD using 4.9 x 30 and 4.0 x 13mm Biotronik sirolimus stents in an overlapping fashion. 03/23/25: Echo showed severe cardiomyopathy, EF 25 - 30%. Started on medical therapy 03/24/25 - 03/25/25: Had some atrial fibrillation, hypotension 03/26/25: Switched from IV to p.o. amiodarone because of recurrent AF. Brilinta switched to Plavix in light of addition of Eliquis 03/27/25: LifeVest delivered. BP stable. Plan for discharge today. Time Spent with Patient Time attestation: Total time spent providing and/or coordinating discharge services: Exam Const: General: comfortable HENMT: Mouth: Yes moist mucous membranes Eyes: EOM: EOMs intact bilaterally Neck: Neck: no JVD Resp: Effort & Inspection: normal respiratory effort Auscultation: clear to auscultation bilaterally Cardio: Rate: regular rate Rhythm: regular rhythm Neuro: Speech: normal speech Extrem: General: no pedal edema Other: Right radial pulse 2 +. Fingers well perfused. DS: Data Data Completed and Pending Labs on day of discharge: Labs from last 24 hours 03/27/25 03:49 WBC 5.7 RBC 3.55 L Hgb 11.1 L Hct 33.5 L MCV 94.4 MCH 31.3 MCHC 33.1 RDW 13.1 Plt Count 143 L MPV 11.3 H Sodium 136 L Potassium 3.9 Chloride 107 Carbon Dioxide 22 Anion Gap 7 BUN 33 H Creatinine 0.98 Estim Creat Clear Calc 41 Estimated GFR 56 L Glucose 107 Calcium 9.1 Total Bilirubin 0.6 Direct Bilirubin 0.0 AST 47 H ALT 41 H Alkaline Phosphatase 74 Total Protein 5.6 L Albumin 3.2 L Discharge Plan Discharge Consulting providers: Marcio Vilchis; Ying Munguia; Kameron Dior Discharging Clinician: Elda Muhammad Patient Disposition: Home Activity: other - see discharge instructions Diet: heart healthy Wound Care Instructions: other - see discharge instructions Discharge Instructions: [facility] [address] [place] [address] DISCHARGE INSTRUCTIONS - POST PCI Activity 1. No driving until 03/28/2025. 2. No lifting, pushing or pulling more than 10 pounds for 1 week. 3. No strenuous exercise or activity (including sexual activity) until you are released to do so. 4. May shower but no tub baths or swimming pool for 1 week. Avoid commercial hot tubs. Medications DO NOT STOP YOUR MEDICATIONS ONLY YOUR F[employer] ASSEMBLER CAN STOP THE FOLLOWING MEDICATIONS - PLEASE CALL THE OFFICE WITH QUESTIONS. *Aspirin *Atorvastatin *Entresto *Carvedilol *Clopidogrel (Plavix) Important Reminders 1. Keep your stent card in your wallet at all times 2. Follow a heart healthy diet paying extra attention to cholesterol and fats. 3. Stay hydrated. 4. If you have chest pain unrelieved by rest or nitroglycerin (if prescribed) call 911 immediately. 5. If you miss one dose of Brilinta (if prescribed) take a tablet at the next time due. If you miss 2 doses take a tablet when you remember and resume at the next time due. *For any other questions please call the office at [phone]. Office hours are 8AM 4:30PM Thursday through Thursday. Patient Instructions: Antibiotic Form, Aspirin (By mouth), Atorvastatin (By mouth), Carvedilol (By mouth), Ticagrelor (By mouth), Sacubitril/Valsartan (By mouth), Heart Attack (GEN), Heart Healthy Diet (GEN) Patient Language: Belarusian Stand Alone Forms: General Discharge Information Follow-up/Referrals: Elda Muhammad APN-C [Advanced Practice Nurse] - Discharge Medications: New atorvastatin 40 mg Tablet 80 mg PO HS Qty: 180 3RF carvedilol [Coreg] 3.125 mg Tablet 6.25 mg PO Q12HR Qty: 180 3RF losartan 25 mg Tablet 25 mg PO DAILY Qty: 90 3RF varenicline tartrate [Chantix Starting Month Box] 0.5 mg (11)- 1 mg (42) tablets,dose pack See Rx Instructions .ROUTE .COMPLEX Qty: 53 0RF Rx Instructions: orally per package directions amiodarone [Pacerone] 200 mg Tablet 400 mg PO DAILY@0800 30 Days Qty: 60 0RF clopidogrel 75 mg Tablet 75 mg PO QAM 30 Days Qty: 30 11RF aspirin 81 mg Tablet,Delayed Release (Dr/Ec) 81 mg PO QAM 30 Days Qty: 30 11RF sacubitril-valsartan [Entresto] 24-26 mg Tablet 1 tab PO Q12HR 30 Days Qty: 60 0RF Continued aspirin [Adult Aspirin Regimen] 81 mg tablet,delayed release (DR/EC) 81 mg PO DAILY Discontinued amlodipine 5 mg tablet 7.5 mg PO DAILY meloxicam 15 mg tablet 15 mg PO DAILY simvastatin 40 mg tablet 40 mg PO QPM triamterene-hydrochlorothiazid 37.5-25 mg tablet 1 tablet PO DAILY Date of admission: 03/22/25 13:07 Primary Care Provider: JeremyPraveena Admitting Provider: Kane Nguyen Attending physician on admission: Kane Nguyen Condition: Stable
== END 2025-03-27 14:59 | disposition home or self-care (01) | DRG 322 ==
LOC: ANHED 13:05 → ANHICU 15:05 → ANHIMU 03-27 13:05 → ANHCPC 03-28 10:54 → ANHICU 03-28 10:54 → ANHIMU 03-28 10:54
PROVIDERS: Internal Medicine; Internal Medicine Cardiovascular Disease; Admitting Provider Internal Medicine Cardiovascular Disease; Emergency Provider Emergency Medicine; PCP Family Medicine; Visit Provider Internal Medicine
PROC: 4A023N7 Measurement of Cardiac Sampling and Pressure, Left Heart, Percutaneous Approach (ICD-10-PCS; CPT 93452; principal; 2025-03-22 13:05)
PROC: 027034Z Dilation of Coronary Artery, One Artery with Drug-eluting Intraluminal Device, Percutaneous Approach (ICD-10-PCS; CPT 92928; 2025-03-22 13:05)
PROC: 027035Z Dilation of Coronary Artery, One Artery with Two Drug-eluting Intraluminal Devices, Percutaneous Approach (ICD-10-PCS; 2025-03-22 13:05)
DX: I21.09 ST elevation (STEMI) myocardial infarction involving other coronary artery of anterior wall (principal); I25.10 Atherosclerotic heart disease of native coronary artery without angina pectoris; I10 Essential (primary) hypertension; E78.5 Hyperlipidemia, unspecified; I25.5 Ischemic cardiomyopathy; I95.2 Hypotension due to drugs; T44.7X5A Adverse effect of beta-adrenoreceptor antagonists, initial encounter; I48.0 Paroxysmal atrial fibrillation; F17.210 Nicotine dependence, cigarettes, uncomplicated; Z79.82 Long term (current) use of aspirin
CPT/HCPCS: 36415; 80048; 80053; 80061; 80076; 83036; 83735; 83880; 84100; 84484; 85025; 85027; 85610; 85730; 86850; 86900; 86901; 87641; 92978; 93005; 93306; 93458; 96374; 99285; A9270; C1725; C1753; C1757; C1769; C1874; C1887; C1894; C8929; C9606; J0282; J0583; J1327; J1644; J1938; J2003; J2250; J2305; J3010; J7030; J7040; Q9957

== ENCOUNTER 2025-04-09 21:07 | Inpatient (IN) | payer MEDICARE, SELFPAY ==
[2025-04-09] VITALS (14 sets, daily range): BP systolic 81–133; BP diastolic 70–83; PULSE 52–62; RESP 17–30; TEMP 36.4–36.6; O2SAT 84–99; BMI 22.9
--- NOTE | ~2025-04-09 | XR_ITS ---
XR chest 1V portable 04/09/2025 21:48 Indication: Shortness of breath Procedure: AP portable chest Comparison: No prior studies for comparison. Findings: Borderline heart size. Bilateral interstitial infiltrates. No significant effusion. No pneumothorax. There are advanced degenerative changes of the glenohumeral joints. No pneumothorax. Impression: 1: Diffuse bilateral interstitial infiltrates which may represent edema or pneumonia. Reviewed, dictated and finalized at location O. Impression: 1: Diffuse bilateral interstitial infiltrates which may represent edema or pneu monia.
--- OUTSIDE RECORDS SUMMARY | 2025-04-09 21:09 | XMS_ITS | Clinical Summary ---
Author Organization [facility] Address [address] [place] [address] Care Team Providers Care Rim Buster Name Role Phone Praveena Luna MD Primary Care Provider Allergies No known active allergies Medications calcium carbonate (TUMS) 500 MG chewable tablet Chew 1 tablet (500 mg total) by mouth daily. Active amLODIPine (NORVASC) 5 MG tabletIndications:P rimary hypertension Take 1 tablet (5 mg total) by mouth daily. 90 tablet 3 5 Active simvastatin (ZOCOR) 40 MG tabletIndications:M ixed hyperlipidemia Take 1 tablet (40 mg total) by mouth daily. 90 tablet 3 5 Active triamterene-hydroCH LOROthiazide (MAXZIDE-25) 37.5-25 MG tabletIndications:P rimary hypertension Take 1 tablet by mouth daily. 90 tablet 3 5 Active meloxicam (MOBIC) 15 MG tabletIndications:C hronic left shoulder pain Take 1 tablet (15 mg total) by mouth daily. 90 tablet 1 5 Active Active Problems Problem Noted Date Diagnosed Date Vitamin D deficiency 01/02/2022 Systolic ejection murmur 03/19/2020 Fatigue, unspecified type 03/19/2020 BMI 25.0-25.9,adult 05/18/2019 Chronic left shoulder pain 11/16/2018 Hyperlipidemia 02/18/2013 Hypertension 02/18/2013 Resolved Problems Problem Noted Date Diagnosed Date Resolved Date Colon cancer screening 11/16/201801/06 Encounters Date Type Department Care Team Description 03/22/2025 Scan [facility] Scanned, Doc Med Group Procedure (SCAN) from Last 3 Months Immunizations Immunization Administration Dates Next Due Fluzone Adult - >Age 3 (Pref illed Syringe) 03/19/2020(Deferred: Patient Refused) Fluzone High Dose - >Age 65 (Prefilled Syringe) 06/12/2022 MODERNA COVID-19 (12+) MRNA, LNP-S, PF, 100 MCG/ 0.5 ML DOSE 07/01/2021,12/04/2020,11/06/2020 MODERNA COVID-19 (HIDE SELECTOR MARYAN MIRANDA), MRNA, LNP-S, PF, 50 MCG/ 0.25 ML DOSE 11/20/2021 Pneumococcal (Prevnar 13) 03/19/2020 Tdap (Generic) 09/08/2012 Family History Medical History Relation Comments Aneurysm Mother Stroke Mother Relation Status Comments Father Mother Social History Tobacco Use Types Packs/Day Years Used Date Smoking Tobacco: Every Day Cigarettes 0.5 13 Smokeless Tobacco: Never Tobacco Cessation:Ready to Q uit: No; Counseling Given: Yes Comments:Smokes here and there- has tried to quit several times Alcohol Use Standard Drinks/Week Comments No 0 (1 standard drink = 0.6 oz pur e alcohol) AUDIT-C Answer Date Recorded Frequency of Alcohol Consumption Never 11/16/2018 Average Number of Drinks Not on file 019 Frequency of Binge Drinking Not on file 09/2018 PHQ-2 Answer Date Recorded Patient Health Questionnaire-2 Score 0 12/07/2024 Education Answer Date Recorded What is the highest level of school you have completed or the highest degree you have received? High school graduate 11/16/2018 Comments No Sex and Gender Information Value Date Recorded Sex Assigned at Female 12/07/2024 8:58 AM CDT Legal Sex Female 8:10 PM CDT Gender Identity Not on file Sexual Orientation Not on file Last Filed Vital Signs Vital Sign Reading Time Taken Comments Blood Pressure 137/82 12/07/2024 9:25 AM CDT Pulse 66 12/07/2024 8:57 AM CDT Temperature 36.8 C (98.3 F) 12/07/2024 8:57 AM CDT Respiratory Rate 16 12/07/2024 8:57 AM CDT Oxygen Saturation 99% 12/07/2024 8:57 AM CDT Inhaled Oxygen Concentration - - Weight 60.3 kg (133 lb) 12/07/2024 8:57 AM CDT Height 162.6 cm (5' 4) 12/07/2024 8:57 AM CDT Body Mass Index 22.83 12/07/2024 8:57 AM CDT Plan of Treatment Upcoming Encounters Date Type Department Care Team (Late st Contact Info) Description 06/08/2025 8:40 AM CDT Office Visit [facility] Medical Group Family & Internal Medicine - [place] [address] [place] [address] [place] [address] [facility]. [address] [place] [address] Health Maintenance Due Date Last Done Comments Zoster Vaccines (1 of 2) 11/07/2001 Annual Medicare Wellness Visit 11/07/2016 Dexa Scan (General) 11/07/2016 Pneumococcal Vaccine: 50+ Years (2 of 2 - PPSV23) 05/14/2020 03/19/2020 Mammogram Screening 07/29/2020 07/29/2018, 07/29/2018, 07/29/2018, Additional history exists DTaP, Tdap and Td Vaccines (2 - Td or Tdap) 09/08/2022 09/08/2012 COVID-19 Vaccine ( - season) 2024 06/12/2022, 11/20/2021, 07/01/2021, Additional history exists RSV Immunization or 60+ Years (1 - 1-dose 75+ series) 11/07/2026 Colorectal Cancer Screening Colonoscopy (10 Years) 03/21/2027 03/21/2022, 03/21/2022 Hepatitis C Completed 10/04/2014 PHQ-2 (Physician [place]) Completed 12/07/2024 Meningococcal B Vaccine Aged Out No l onger eligible based on patient's age to complete this topic Meningococcal Vaccine Aged Out No chintan randal eligible based on patient's age to complete this topic RSV Immunizations Under 20 Months Aged Out No longer eligible based on patient's age to complete this topic Procedures Procedure Name Priority Date/Time Associated Diagnosis Comments PROCEDURE GENERIC (SCAN ORDER) 03/22/2025 COLONOSCOPY Routine 03/21/2022 9:00 AM CDT MAMMOGRAM GENERIC (SCAN ORDER) Routine 07/29/2018 12:48 PM VEHICLE SALES PROFESSIONAL HEPATITIS A,B,& C Routine 10/04/2014 9:0 0 AM VEHICLE SALES PROFESSIONAL from Last 3 Months or Most Recently Relevant to Health Maintenance Results * PROCEDURE GENERIC (SCAN ORDER) (03/22/2025) 03/22/2025 us Doc Med Group Scanned SCANNING Final Resu lt * MAMMOGRAM (07/29/2018 12:48 PM VEHICLE SALES PROFESSIONAL) Anatomical Region Laterality Modality Other us Documents Scanned SCANNING Final Result * HEPATITIS A,B,& C (10/04/2014 9:00 AM VEHICLE SALES PROFESSIONAL) HAV IGM NON-REACTI VE NR [facility] TO EPIC CONVERSION HEPATITIS B SURFACE AG NON-REACTI VE NR [facility] TO EPIC CONVERSION HEP B SURFACE AB NON-REACTI VE [facility] TO EPIC CONVERSION HEP B CORE TOTAL AB NON-REACTI VE NR [facility] TO EPIC CONVERSION HEPATITIS C AB NON-REACTI VE NR [facility] TO EPIC CONVERSION Comment: Result Comment: TESTING PERFORMED AT [facility], A MEMBER OF THE [facility]ENCE [facility] NETWORK. 10/04/2014 9:00 AM VEHICLE SALES PROFESSIONAL 10/04/2014 9:00 AM VEHICLE SALES PROFESSIONAL Narrative [facility] TO EPIC CONVERSION - 10/04/2014 5:21 PM VEHICLE SALES PROFESSIONAL Result Communication: Call patient with results us Christofer Okeefe MD LABORATORY Final Re sult [facility] TO EPIC CONVERSION from Last 3 Months or Most Recently Relevant to Health Maintenance Insurance MEDICARE AETNA MEDICARE Care Teams Rim Buster Relationship Specialty [place] [id number] [address] [place] [address] PCP - General FAMILY PRACTICE 10/03/22
--- OUTSIDE RECORDS SUMMARY | 2025-04-09 21:09 | XMS_ITS | Encounter Summary ---
Author Organization [facility] Address [facility] [place] [address] Care Team Providers Care Diet Kitchen Cook Name Role Phone Christofer Okeefe MD Primary Care Provider U Praveena Grace MD Primary Care Provider [phone] Encounter Details Date Type Department Care Team (Latest Contact Info) Description 06/22/2018 Abstract [facility] Medical Group Lina Moreno MD Social History Tobacco Use Types Packs/Day Years Used Date Smoking Tobacco: Never Assessed Comments Unknown Sex and Gender Information Value Date Recorded Sex Assigned at Female 12/07/2024 8:58 AM CDT Legal Sex Female 8:10 PM CDT Gender Identity Not on file Sexual Orientation Not on file documented as of this encounter Plan of Treatment Upcoming Encounters Date Type Department Care Team (Late st Contact Info) Description 06/08/2025 8:40 AM CDT Office Visit [facility] Medical Group Family & Internal Medicine [facility] [id number] [place] [address] [place] [address] [facility] [address] [place] [address] documented as of this encounter Visit Diagnoses Not on filedocumented in this encounter Care Teams Diet Kitchen Cook Relationship Specialty Start Date End Date Christofer Okeefe MD PCP - General 03/04/13 10/02/22 [place] [address] [address] [place] [address] PCP - General FAMILY PRACTICE 10/03/22 documented as of this encounter
--- NOTE | 2025-04-09 21:19 | ECG_ITS ---
Test Date: 2025-04-09 21:24:32 Measurements Intervals Secretary Rate: 66 P: 42 VA: 136 QRS: -56 QRSD: 123 T: 267 QT: 444 QTc: 465 Interpretive Statements SINUS RHYTHM LEFT AXIS DEVIATION CONSIDER INFERIOR INFARCT, AGE INDETERMINATE ANTEROSEPTAL MYOCARDIAL INFARCTION , PROBABLY RECENT BASELINE ARTIFACT- I, II, III, AVR, AVL, AVF, V1-V6 ABNORMAL ECG Compared to ECG 03/23/2025 22:58:21 ATRIAL FIBRILLATION NO LONGER PRESENT Electronically Signed On 04-10-2025 06:10:25 CDT by Bipin Rodriguez D.O.
[2025-04-09 21:34] LABS: Hematocrit 37.2 % (37.0-47.0); Hemoglobin 12.2 g/dL (12.0-15.0); Immature Granulocyte Percent A 0.5 % (0-0.5); Lymphocytes Absolute Auto 0.76 K/mm3 (0.9-3.2); Mean Corpuscular HGB Conc 32.8 g/dl (32-36); Mean Corpuscular Hemoglobin 31.4 pg (26-34); Mean Corpuscular Volume 95.9 fl (80-100); Nucleated Red Blood Cells Absolute Auto 0.000 K/mm3 (0.0-0.012); Nucleated Red Blood Cells Perc 0.0 % (0.0-0.2); Platelet Count Result 232 k/mm3 (150-375); Red Blood Count 3.88 M/mm3 (4.2-5.4); White Blood Count 7.9 K/mm3 (4.5-10.0)
[2025-04-09] MEDS: ASPIRIN 81 MG CHEWABLE TABLET 324 MG PO (21:38)
--- OUTSIDE RECORDS SUMMARY | 2025-04-09 21:40 | XMS_ITS | Encounter Summary ---
Author Organization [facility] Address [facility] [place] [address] Care Team Providers Care Cooling Room Attendant Name Role Phone Christofer Okeefe MD Primary Care Provider U Praveena Grace MD Primary Care Provider [phone] Encounter Details Date Type Department Care Team (Late st Contact Info) Description 12/14/2012 Abstract [facility] CONVERSION [id number] [facility] [place] [address] , Generic MD Nelson Social History Tobacco Use Types Packs/Day Years [...] Description 06/08/2025 8:40 AM CDT Office Visit [facility] Medical Group Family & Internal Medicine [facility] [address] [place] [address] [place] [address] [address] [place] [address] documented as of this encounter Visit Diagnoses Not on filedocumented in this encounter Care Teams Cooling Room Attendant Relationship Specialty Start Date End Date Christofer Okeefe MD PCP - General 03/04/13 10/02/22 [place] [address] [address] [place] [address] PCP - General FAMILY PRACTICE 10/03/22 documented as of this encounter
--- OUTSIDE RECORDS SUMMARY | 2025-04-09 21:41 | XMS_ITS | Clinical Summary ---
Author Organization [facility] Address [address] [place] [address] Care Team Providers Care Strategic Marketing Associate Name Role Phone Praveena Luna MD Primary [...] MCG/ 0.5 ML DOSE 07/01/2021,12/04/2020,11/06/2020 MODERNA COVID-19 (SUPERVISOR STITCHING DEPARTMENT MARYAN MIRANDA), MRNA, LNP-S, PF, 50 MCG/ [...] Description 06/08/2025 8:40 AM CDT Office Visit [facility] Family & Internal Medicine - [place] [address] [place] [address] [place] [address] [facility]. [address] [place] [address] Health Maintenance Due Date Last [...] 03/21/2022 Hepatitis C Completed 10/04/2014 PHQ-2 (Physician [place]) Completed 12/07/2024 Meningococcal B Vaccine Aged Out [...] GENERIC (SCAN ORDER) Routine 07/29/2018 12:48 PM PRINTED CIRCUIT BOARD PANELS DEVELOPER HEPATITIS A,B,& C Routine 10/04/2014 9:0 0 AM PRINTED CIRCUIT BOARD PANELS DEVELOPER from Last 3 Months or Most Recently Relevant to Health Maintenance Results * PROCEDURE GENERIC (SCAN ORDER) (03/22/2025) 03/22/2025 us Doc Med Group Scanned SCANNING Final Resu lt * MAMMOGRAM (07/29/2018 12:48 PM PRINTED CIRCUIT BOARD PANELS DEVELOPER) Anatomical Region Laterality Modality Other us Documents Scanned SCANNING Final Result * HEPATITIS A,B,& C (10/04/2014 9:00 AM PRINTED CIRCUIT BOARD PANELS DEVELOPER) HAV IGM NON-REACTI VE NR [facility] TO EPIC CONVERSION HEPATITIS B SURFACE AG NON-REACTI VE NR [facility] TO EPIC CONVERSION HEP B SURFACE AB NON-REACTI VE [facility] TO EPIC CONVERSION HEP B CORE TOTAL AB NON-REACTI VE NR [facility] TO EPIC CONVERSION HEPATITIS C AB NON-REACTI VE NR [facility] TO EPIC CONVERSION Comment: Result Comment: TESTING PERFORMED AT [facility], A MEMBER OF THE [facility] REFERENCE LAB NETWORK. 10/04/2014 9:00 AM PRINTED CIRCUIT BOARD PANELS DEVELOPER 10/04/2014 9:00 AM PRINTED CIRCUIT BOARD PANELS DEVELOPER Narrative [facility] TO EPIC CONVERSION - 10/04/2014 5:21 PM PRINTED CIRCUIT BOARD PANELS DEVELOPER Result Communication: Call patient with results us Christofer Okeefe MD LABORATORY Final Re sult [facility] TO EPIC CONVERSION from Last 3 Months or Most Recently Relevant to Health Maintenance Insurance MEDICARE AETNA MEDICARE Care Teams Strategic Marketing Associate Relationship Specialty [place] [address] [address] [place] [address] PCP - General FAMILY PRACTICE 10/03/22
--- OUTSIDE RECORDS SUMMARY | 2025-04-09 21:41 | XMS_ITS | Encounter Summary ---
Author Organization [facility] Address [facility] [place] [address] Care Team Providers Care Locker Room Attendant Name Role Phone Christofer Okeefe MD Primary Care Provider U Praveena Grace MD Primary Care Provider [phone] Encounter Details Date Type Department Care Team (Latest Contact Info) Description 06/22/2018 Abstract [facility] Medical Group Lina Moreno MD Social [...] Description 06/08/2025 8:40 AM CDT Office Visit [facility] Medical Group Family & Internal Medicine [facility] [id number] [place] [address] [place] [address] [facility] [place] [address] documented as of this encounter Visit Diagnoses Not on filedocumented in this encounter Care Teams Locker Room Attendant Relationship Specialty Start Date End Date Christofer Okeefe MD PCP - General 03/04/13 10/02/22 [place] [address] [address] [place] [address] PCP - General FAMILY PRACTICE 10/03/22 documented as of this encounter
[2025-04-09 21:43] LABS: INR 1.6; Prothrombin Time 18.7 Seconds (11.1-14.7)
[2025-04-09 21:44] LABS: Partial Thromboplastin Time 30.7 Seconds (22.3-36.8)
[2025-04-09 21:46] LABS: Alanine Aminotransferase 36 U/L (6-35); Albumin Level 3.9 g/dL (3.5-5.1); Alkaline Phosphatase 98 U/L (38-126); Anion Gap 9 mmol/L (4-12); Aspartate Amino Transferase 40 U/L (14-36); Bilirubin,Total 0.9 mg/dL (0.2-1.3); Blood Urea Nitrogen 41 mg/dL (7-17); Calcium 9.6 mg/dL (8.4-10.2); Carbon Dioxide 21 mmol/L (22-30); Chloride 102 mmol/L (98-107); Estimated CRCL calculation 29 ml/min; Estimated Glomerular Filt Rate 38; Glucose 115 mg/dL (65-110); Potassium 4.8 mmol/L (3.4-5.0); Sodium 132 mmol/L (137-145); Total Protein 6.2 g/dL (6.3-8.2)
--- NOTE | 2025-04-09 22:11 | ED_ITS ---
HPI - General Adult General Chief complaint: Shortness of Breath/Dyspnea Stated complaint: SOB Time Seen by Provider: 04/09/25 21:20 History of Present Illness HPI narrative: Patient is a 73-year-old female who presents emergency department this evening complaining of shortness of breath and chest heaviness that started yesterday. Patient states that initially it felt like someone was sitting on her chest and she could not get enough air in. States the symptoms have improved slightly but are still there so she finally decided to come to the ED today. Patient was seen at our facility earlier this month for a STEMI and had 2 stents placed to her LAD. Patient states at that time when she came in her symptoms were different and she was very diaphoretic and sweaty. Currently denying any additional symptoms or concerns including nausea or vomiting any sharp stabbing chest pain, any recent illness, fevers or chills. There are no additional modifying, alleviating, or precipitating factors at this time. Related Data Home Medications ?Medication ?Instructions ?Recorded ?Confirmed ?Last Taken ?Type aspirin 81 mg tablet,delayed 81 mg PO DAILY 03/22/25 0 03/22/25 03/22/25 History release (Adult Aspirin Regimen) Allergies Allergy/AdvReac Type Severity Reaction Status Date / Time No Known Allergies Allergy Unverified 03/22/25 15:08 Review of Systems 2 Review of Systems: All systems are reviewed and are negative unless stated otherwise in the HPI. [facility] Past Medical History Medical History Hypertension Social History Social History Smoking packs per day: 0.33 Smoking cigarettes per day: 6.6 Years smoked: 13 Smoking pack-years: 4.29 Smoking status: Current every day smoker Tobacco type: cigarettes Alcohol intake: never Substance use: never Lack of Transportation: No Lack of Food: Never True Current Housing: I Have Housing Concerned About Future Housing: No Difficulty Paying Gas/Electric Bills: No Difficulty Paying for Meds: No Currently Unemployed: No Education: High School Diploma/GED Difficulty w/ Childcare or Family Care: No Spiritual care concerns: No Exam 2 Narrative: General: Alert, awake, afebrile, in no acute distress. HEENT: PERRL, no rhinorrhea, no post nasal drip, oropharynx clear. Neck: Trachea midline, no JVD, no lymphadenopathy. Cardiovascular: Regular rate and rhythm, no murmurs, rubs or gallops, no peripheral edema. Respiratory: Clear to auscultation bilaterally, no tachypnea, no wheezing, no rhonchi, no rubs, no respiratory distress. Abdomen: Soft, nontender, nondistended, no rebound, no guarding, no peritoneal signs. Musculoskeletal: No joint swelling or deformity, normal muscle tone. Skin: No rashes or petechia, no signs of infection. Psychiatric: Alert and oriented, normal behavior and judgment for situation. Neurological: Alert and oriented to person, place, and time. Follows all commands. No focal deficits, speech is clear and fluent. Course Vital Signs Vital signs: Vital Signs Temperature 97.6 F 04/09/25 21:10 Pulse Rate 52 L 04/09/25 21:10 Respiratory Rate 22 H 04/09/25 21:10 Blood Pressure 133/82 04/09/25 21:10 Pulse Oximetry 95 04/09/25 21:10 Oxygen Delivery Room Air 04/09/25 21:10 Temperature 97.6 F 04/09/25 21:10 Pulse Rate 57 L 04/09/25 23:03 Respiratory Rate 17 04/09/25 23:03 Blood Pressure 100/74 04/09/25 23:03 Pulse Oximetry 97 04/09/25 23:03 Oxygen Delivery Room Air 04/09/25 21:29 Medical Decision Making MDM Narrative Medical decision making narrative: The patient was evaluated by myself in the emergency department. History is obtained from patient who is an independent historian and physical exam was performed. External medical records were reviewed at this time. IV was established and pertinent tests were ordered. Patient was administered a full dose oral chewable aspirin. No nitroglycerin was administered at this time due to concern for hypertension. EKG was obtained which revealed sinus rhythm rate of 60 beats per minute with ST elevations in leads V2 and V3 which are likely residual from patient's recent STEMI, otherwise no evidence of acute ischemia. EKG was independently interpreted by me and is currently pending official cardiology read. EKG was reviewed with the on-call server service assistant Dr. Arenas at [address] elevations today are likely residual from her recent STEMI. Patient was started on heparin drip for NSTEMI at this time. Laboratory results obtained revealing are elevated troponin of 0.147 otherwise unremarkable. Although patient's troponin is elevated, it is significantly lower than earlier this month on March 22 where it was greater than 80,000. Imaging studies obtained included CXR which was independently interpreted by me revealing no acute process, which is pending final radiology interpretation. Differential diagnosis considerations include STEMI, NSTEMI, acute viral syndrome, infectious process such as pneumonia. Comorbidities impacting this visit include recent STEMI status post PCI. I have evaluated and discussed social determinants of health with the patient that could potentially impact subsequent diagnosis and treatment plans. On repeat assessment of the patient, reevaluation revealed that the patient is doing well and is in no acute distress. Patient symptoms have improved since she arrived to our emergency department. Repeat vital signs were all reviewed and noted to be stable. Differential diagnosis and treatment plan were discussed with the patient at bedside. Patient agrees with discussion and after shared medical decision making agrees with admission. All questions were answered to the patient's satisfaction. Case was discussed with the on-call hospitalist Dr. Rendon at [phone] and she accepted admission. Critical care time of 75 minutes, exclusive of separately performed procedures, necessary for treating or preventing eminent or life-threatening deterioration of patient's condition of NSTEMI requiring IV heparin therapy, focused on patient care provided personally by me and time spent during initial evaluation, physical examination, ordering and performing treatments and interventions, ordering and reviewing laboratory studies, ordering and reviewing radiographic studies, re-evaluation of the patient's condition, evaluation of the patient's response to treatment, and discussion of patient case with admitting provider and consultants. Vital Signs Vital Signs: Vital Signs Temperature 97.6 F 04/09/25 21:10 Pulse Rate 52 L 04/09/25 21:10 Respiratory Rate 22 H 04/09/25 21:10 Blood Pressure 133/82 04/09/25 21:10 Pulse Oximetry 95 04/09/25 21:10 Oxygen Delivery Room Air 04/09/25 21:10 Temperature 97.6 F 04/09/25 21:10 Pulse Rate 57 L 04/09/25 23:03 Respiratory Rate 17 04/09/25 23:03 Blood Pressure 100/74 04/09/25 23:03 Pulse Oximetry 97 04/09/25 23:03 Oxygen Delivery Room Air 04/09/25 21:29 Lab Data 04/09/25 21:26 04/09/25 21:26 Labs: Lab Results 04/09/25 Range/Units 21:26 WBC 7.9 (4.5-10.0) K/mm3 RBC 3.88 L (4.2-5.4) M/mm3 Hgb 12.2 (12.0-15.0) g/dL Hct 37.2 (37.0-47.0) % MCV 95.9 (80-100) fl MCH 31.4 (26-34) pg MCHC 32.8 (32-36) g/dl RDW 14.2 (11.5-14.5) % Plt Count 232 D (150-375) k/mm3 MPV 11.7 H (7.4-10.4) fl Immature Gran % (Auto) 0.5 (0-0.5) % Neut % (Auto) 80.0 H (45.5-73.1) % Lymph % (Auto) 9.6 L (18.3-44.2) % [place] % (Auto) 8.8 H (2.6-8.5) % Eos % (Auto) 0.8 (0-4.4) % Baso % (Auto) 0.3 (0.2-1.2) % Lymph # (Auto) 0.76 L (0.9-3.2) K/mm3 [place] # (Auto) 0.7 H (0.1-0.6) K/mm3 Eos # (Auto) 0.1 (0-0.3) K/mm3 Baso # (Auto) 0.0 (0.0-0.1) K/mm3 Abs Immat Gran (auto) 0.04 H (0.00-0.031) K/mm3 Absolute Neuts (auto) 6.3 (1.3-6.7) K/mm3 Absolute Nucleated RBC 0.000 (0.0-0.012) K/mm3 Nucleated RBC % 0.0 (0.0-0.2) % PT 18.7 H (11.1-14.7) Seconds INR 1.6 APTT 30.7 (22.3-36.8) Seconds Sodium 132 L (137-145) mmol/L Potassium 4.8 (3.4-5.0) mmol/L Chloride 102 (98-107) mmol/L Carbon Dioxide 21 L (22-30) mmol/L Anion Gap 9 (4-12) mmol/L BUN 41 H (7-17) mg/dL Creatinine 1.36 H (0.7-1.0) mg/dL Estim Creat Clear Calc 29 ml/min Estimated GFR 38 L (59 - ) Glucose 115 H (65-110) mg/dL Calcium 9.6 (8.4-10.2) mg/dL Total Bilirubin 0.9 (0.2-1.3) mg/dL AST 40 H (14-36) U/L ALT 36 H (6-35) U/L Alkaline Phosphatase 98 (38-126) U/L Troponin I 0.147 H* (0.000-0.034) ng/mL Total Protein 6.2 L (6.3-8.2) g/dL Albumin 3.9 (3.5-5.1) g/dL Critical Care Time Critical Care Time Critical Care Time: Yes Total Critical Care Time: 75 (Please refer to [facility] for attestation.) Discharge Plan Discharge Clinical Impression: Chest pain, Acute non-ST elevation myocardial infarction (NSTEMI) Patient Disposition: Still a Patient Condition: Improved
[2025-04-09 22:14] LABS: Troponin I 0.147 ng/mL (0.000-0.034)
[2025-04-09] MEDS: HEPARIN SOD/D5W 100 UNITS/ML 25,000 UNITS/250 ML BAG 7 UNITS IV CONT (22:29)
--- NOTE | 2025-04-09 23:13 | ADMGEN ---
This patient, Patience Marroquin, was admitted to IMU Room 204-01. Patient/family oriented to hospital policies and general routines including ID bracelet, bed and alarms, visiting hours, pain management, procedures, bathroom and other care routines, personal items, smoking policy, room service/diet, and visiting hours. Information on how to activate the Rapid Response Team has been discussed. Patient/Family are encouraged to report perceived risks to care and to ask questions if they do not understand what they are told or what they should do.
[2025-04-10] VITALS (16 sets, daily range): BP systolic 90–118; BP diastolic 55–78; PULSE 58–73; RESP 18–20; TEMP 36.4–36.9; O2SAT 94–100
[2025-04-10 01:21] LABS: Troponin I 0.149 ng/mL (0.000-0.034)
--- NOTE | 2025-04-10 01:28 | ECG_ITS ---
Test Date: 2025-04-10 01:38:26 Measurements Intervals [place] Rate: 62 P: 47 AR: 202 QRS: -47 QRSD: 111 T: 106 QT: 444 QTc: 453 Interpretive Statements SINUS RHYTHM LEFT ANTERIOR FASCICULAR BLOCK ANTEROSEPTAL MYOCARDIAL INFARCTION, PROBABLY RECENT BASELINE ARTIFACT- I, II, III, AVR, AVL, AVF, V4-V6 ABNORMAL ECG Compared to ECG 04/09/2025 21:31:12 NO SIGNIFICANT CHANGE Electronically Signed On 04-10-2025 06:17:04 CDT by Bipin Rodriguez D.O.
--- NOTE | 2025-04-10 02:07 | P.HP_ITS ---
H&P: HPI History of Present Illness Date/Time: 04/10/25 02:07 Chief Complaint: Shortness of breath, chest pressure Narrative: 74-year-old female with a past medical history of STEMI 03/22/2025, reperfusion AFib RVR, ischemic cardiomyopathy with EF of 25-30% and tobacco abuse who presented to the ER with shortness of breath and chest heaviness. The patient reports that she felt wonderful when she 1st was discharged home. But over the last 3-4 days she had had difficulty with poor appetite feeling nauseated when she would try to drink fluids. She developed increasing shortness of breath with orthopnea. Over the last 48 hours she had developed chest pressure when trying to take a deep breath. She felt as if someone was sitting on her chest. She denied any swelling in her lower extremities but reported that her abdomen felt bloated. She also felt like she was not producing as much urine as usual. She had developed a nonproductive cough over the last 2-3 days as well. The cough was worse at night when she would lie down. She also was having some paroxysmal nocturnal dyspnea. She denies having any palpitations. She was discharged with a LifeVest but she was having difficulty taking the life vest on and off and changing the battery. She reported that the life vest was shocking her inappropriately. Since she did not have any right home to help her with a LifeVest she decided to just send back. She reports that she has been compliant with her other cardiac medications. She has been trying to eat a low sugar and low fat diet. She has been trying to eat vegetables without salt. She reports that she was tolerating Chantix well for the starter doses but once she increase the dose of Chantix she felt like it was making her nauseous d smoking. without salt so she has been using some additional salt on some items. She denies any jaw pain chest pain or diaphoresis like she had when she had her STEMI. She was had taking Chantix to help her quit smoking. She was having good success with the initial dose of Chantix but when the dose increase she has felt like it was making her nauseous and have less appetite so she quit taking the Chantix. She is still abstaining from smoking. Review of Systems 2 Review of Systems: 12 systems were reviewed with pertinent positives and negatives per HPI. Except as documented in the HPI, all other systems were reviewed and are negative. [facility] Past Medical History Medical History (Updated 04/10/25 @ 04:13 by Dora Rendon DO) Tobacco abuse Quit smoking when she had her STEMI 03/22/[address] elevation (STEMI) myocardial infarction (03/22/25) Ischemic cardiomyopathy Hypertension Surgical History Surgical History (Updated 04/10/25 @ 04:26 by Dora Rendon DO) H/O cervical spine surgery X2 History of coronary artery stent placement (03/22/25) LAD is stent x2 Social History Social History (Updated 04/10/25 @ 03:42 by Dora Rendon DO) Social History: Code status: Full code Surrogate decision maker: Non Smoking packs per day: 0.33 Smoking cigarettes per day: 6.6 Years smoked: 13 Smoking pack-years: 4.29 Smoking status: Former smoker Tobacco type: cigarettes Second hand tobacco smoke exposure: No Alcohol intake: former Substance use: never Substance use type: does not use Lack of Transportation: No Lack of Food: Never True Current Housing: I Have Housing Concerned About Future Housing: No Difficulty Paying Gas/Electric Bills: No Difficulty Paying for Meds: No Currently Unemployed: No Education: High School Diploma/GED Difficulty w/ Childcare or Family Care: No Spiritual care concerns: No Meds Home Medications and Allergies Home Medications ?Medication ?Instructions ?Recorded ?Confirmed ?Type atorvastatin 40 mg tablet 80 mg (2 x 40 mg) PO HS #180 tabs 03/23/25 04/10/25 Rx carvedilol 3.125 mg tablet (Coreg) 6.25 mg (2 x 3.125 mg) PO Q12HR 03/23/25 04/10/25 Rx #180 tabs losartan 25 mg tablet 25 mg PO DAILY #90 tabs 0803/1004/10/25 Rx varenicline tartrate 0.5 mg (11)-1 See Rx Instructions PO .COMPLEX 03/23/25 04/10/25 Rx mg (42) tablets in a dose pack #53 ea (Chantix Starting Month Box) amiodarone 200 mg tablet (Pacerone) 400 mg (2 x 200 mg ) PO DAILY@0800 03/27/25 04/10/25 Rx 30 days #60 tabs apixaban 5 mg tablet (Eliquis) 5 mg PO BID #60 tabs 04/10/25 Rx aspirin 81 mg tablet,delayed 81 mg PO QAM 30 days #30 tabs 03/27/25 04/10/25 Rx release clopidogrel 75 mg tablet 75 mg PO QAM 30 days #30 tab s 03/27/25 04/10/25 Rx sacubitril 24 mg-valsartan 26 mg 1 tab PO Q12HR 30 day s #60 tabs 03/27/25 04/10/25 Rx tablet (Entresto) Allergies Allergy/AdvReac Type Severity Reaction Status Date / Time No Known Allergies Allergy Unverified 03/22/25 15:08 Vital Signs Vital Signs - 24 hr 04/09/25 21:10 04/09/25 21:29 04/09/25 21:44 Temperature 97.6 F Pulse Rate 52 L 61 Respiratory Rate 22 H 18 Blood Pressure 133/82 Pulse Oximetry 95 84 L Oxygen Delivery Room Air Room Air 04/09/25 21:50 04/09/25 22:00 04/09/25 22:02 Temperature Pulse Rate 60 59 L 61 Respiratory Rate 30 H 18 20 Blood Pressure 81/70 L Pulse Oximetry 98 98 97 Oxygen Delivery 04/09/25 22:04 04/09/25 22:15 04/09/25 22:16 Temperature Pulse Rate 59 L 59 L 58 L Respiratory Rate 24 H 22 H 20 Blood Pressure 109/73 113/83 Pulse Oximetry 96 98 96 Oxygen Delivery 04/09/25 22:42 04/09/25 22:45 04/09/25 22:47 Temperature Pulse Rate 56 L 58 L 62 Respiratory Rate 19 18 25 H Blood Pressure 103/82 Pulse Oximetry 97 97 98 Oxygen Delivery 04/09/25 23:03 04/09/25 23:33 04/09/25 23:37 Temperature 97.9 F Pulse Rate 57 L 60 Respiratory Rate 17 23 H Blood Pressure 100/74 125/72 Pulse Oximetry 97 99 99 Oxygen Delivery Room Air 04/10/25 00:00 Temperature Pulse Rate Respiratory Rate Blood Pressure Pulse Oximetry 98 Oxygen Delivery Room Air Exam 2 Narrative: Weight 60.7 kg BMI 23 Const: Other: Appears stated age, thin body habitus, mild respiratory distress HENMT: Other: Mucous membranes are tacky, no oral pharyngeal erythema, fair dentition Eyes: Other: Pupils are equal and reactive, no scleral icterus, no conjunctival pallor Neck: Other: JVD up to the angle of the jaw, no lymphadenopathy Resp: Other: Accessory muscle use, conversational tachypnea Cardio: Other: Regular rate, regular rhythm, 2+ bilateral radial pedal pulses, JVD to the angle of the jaw GI: Other: Soft, nontender, nondistended, normoactive bowel sounds Skin: Other: No jaundice, no pallor Neuro: Other: Alert oriented x4, speech is clear, no facial asymmetry, no localizing neurologic deficits noted during the course of conversation Extrem: Other: No cyanosis, no edema Psych: Other: Mildly anxious but otherwise appropriate mood and affect, pleasant and cooperative, judgment and insight intact H&P: Results Labs Labs: Laboratory Tests 04/09/25 21:04/09/25 21:04/09/25 04/10/25 21: 00:22 WBC 7.9 RBC 3.88 L Hgb 12.2 Hct 37.2 MCV 95.9 MCH 31.4 MCHC 32.8 RDW 14.2 Plt Count 232 D MPV 11.7 H Immature Gran % (Auto) 0.5 Neut % (Auto) 80.0 H Lymph % (Auto) 9.6 L [place] % (Auto) 8.8 H Eos % (Auto) 0.8 Baso % (Auto) 0.3 Lymph # (Auto) 0.76 L [place] # (Auto) 0.7 H Eos # (Auto) 0.1 Baso # (Auto) 0.0 Abs Immat Gran (auto) 0.04 H Absolute Neuts (auto) 6.3 Absolute Nucleated RBC 0.000 Nucleated RBC % 0.0 PT 18.7 H INR 1.6 APTT 30.7 Sodium 132 L Potassium 4.8 Chloride 102 Carbon Dioxide 21 L Anion Gap 9 BUN 41 H Creatinine 1.36 H Estim Creat Clear Calc 29 Estimated GFR 38 L Glucose 115 H Calcium 9.6 Total Bilirubin 0.9 AST 40 H ALT 36 H Alkaline Phosphatase 98 Troponin I 0.147 H* 0.149 H* Total Protein 6.2 L Albumin 3.9 EKG: Personally reviewed and interpreted demonstrated sinus rhythm with left axis deviation with Q-waves V1 through V4 with some residual ST changes in V3 and V4 but much improved in comparison to prior exam with resolution of prior AFib. Second EKG demonstrated persistent changes in V1 through V4 with mild ST changes in V2 through V4 with new left anterior fascicular block QTC 453 rate 62 Chest x-ray: Assessment and Plan Assessment and plan (1) Systolic heart failure secondary to coronary artery disease: Code(s): I50.20 - Unspecified systolic (congestive) heart failure; I25.10 - Atherosclerotic heart disease of [place] coronary artery without angina pectoris Status: Acute (2) Ischemic cardiomyopathy: Code(s): I25.5 - Ischemic cardiomyopathy Status: Acute (3) Elevated troponin: Code(s): R79.89 - Other specified abnormal findings of blood chemistry Status: Acute (4) Hyperlipidemia: Qualifiers: Hyperlipidemia type: pure hypercholesterolemia Qualified Code(s): E 78.00 - Pure hypercholesterolemia, unspecified Code(s): E78.5 - Hyperlipidemia, unspecified Status: Acute (5) Hypertension: Qualifiers: Hypertension type: primary hypertension Qualified Code(s): I10 - Essential (primary) hypertension Code(s): I10 - Essential (primary) hypertension Status: Acute (6) Tobacco abuse: Code(s): Z72.0 - Tobacco use Status: Acute Plan Patient presents with chest pressure and shortness of breath in the setting of ischemic cardiomyopathy with recent STEMI. Patient's initial troponin was mildly elevated but troponin profile is flat. On exam patient does have JVD and crackles at the right base with significant tachypnea orthopnea and paroxysmal nocturnal dyspnea clinically fitting and picture of systolic heart failure exacerbation due to ischemic cardiomyopathy. Will give the patient 1 dose of 40 mg IV Lasix now then start b.i.d. Lasix 20 mg IV in the evening. Will monitor strict I&O's and daily weights. Will continue the patient's Entresto, Coreg, aspirin amiodarone and Lipitor and Eliquis. Will need to clarify the patient's antihypertensive regimen with Cardiology as she has both Entresto and losartan listed on her med rec. Patient was initially started on a heparin drip but given flat troponin profile acute ischemiac event is not occurring will discontinue heparin drip. Cardiology was consulted from the ER. Patient was discharged with the LifeVest for ischemic cardiomyopathy with ejection fraction less than 30%. The patient reports that she could not handle the device at home and sent back. Will check the patient's electrolyte panel, BNP and CBC with her next troponin. She will remain in IMU on telemetry. The patient does seem somewhat confused as to dietary recommendations following her recent STEMI. She is trying to eat a low-fat and low sugar diet. At this point patient would benefit more from heart healthy and low-sodium diet. Will place consult dietitian for further Education. Patient has abstained from smoking since she was discharged from the hospital. I congratulated on her smoking cessation efforts. She states she is not tolerating Chantix but is not morning and nicotine patch at this time. MEDICAL DECISION MAKING NARRATIVE -Spoke with the ED provider in detail regarding patient's evaluation, workup and management -Patient seen and examined at bedside -Collaborated with patient's nurse at the bedside in detail and addressed all concerns -Labs, electrolytes, radiology, investigations and test results personally reviewed and interpreted unless otherwise specified -ED/Consult/Nursing/Ancilliary notes on the chart reviewed and appreciated -Spoke with patient at bedside and diagnosis and plan of care was discussed. All questions answered. Quality VTE Prophylaxis VTE prophylaxis: pharmacologic ordered (Continue home Eliquis) Hospitalist [facility] Advance Care Plan I have confirmed that the patient's Advanced Care Plan is present, code status is documented, or surrogate decision maker is listed in patient medical record.: Yes Medication Reconciliation I have utilized all available resources to obtain, update and review the patients current medications (includes all prescriptions, OTC, herbals, cannabis, and nutritional supplements).: Yes
[2025-04-10 03:47] LABS: Hematocrit 35.6 % (37.0-47.0); Hemoglobin 11.6 g/dL (12.0-15.0); Immature Granulocyte Percent A 0.2 % (0-0.5); Lymphocytes Absolute Auto 0.80 K/mm3 (0.9-3.2); Mean Corpuscular HGB Conc 32.6 g/dl (32-36); Mean Corpuscular Hemoglobin 31.1 pg (26-34); Mean Corpuscular Volume 95.4 fl (80-100); Nucleated Red Blood Cells Absolute Auto 0.000 K/mm3 (0.0-0.012); Nucleated Red Blood Cells Perc 0.0 % (0.0-0.2); Platelet Count Result 203 k/mm3 (150-375); Red Blood Count 3.73 M/mm3 (4.2-5.4); White Blood Count 6.1 K/mm3 (4.5-10.0)
[2025-04-10 03:58] LABS: Anion Gap 8 mmol/L (4-12); Blood Urea Nitrogen 37 mg/dL (7-17); Calcium 9.4 mg/dL (8.4-10.2); Carbon Dioxide 21 mmol/L (22-30); Chloride 105 mmol/L (98-107); Estimated CRCL calculation 30 ml/min; Estimated Glomerular Filt Rate 41; Glucose 112 mg/dL (65-110); Magnesium 2.2 mg/dL (1.6-2.3); Potassium 4.4 mmol/L (3.4-5.0); Sodium 134 mmol/L (137-145)
[2025-04-10] MEDS: FUROSEMIDE INJ 40 MG/4 ML VIAL IV PUSH (04:05)
[2025-04-10 04:07] LABS: NT Pro B Type Natriuretic Pept 17100 pg/mL (19.9-100)
[2025-04-10 04:17] LABS: Troponin I 0.140 ng/mL (0.000-0.034)
--- NOTE | 2025-04-10 04:18 | ECG_ITS ---
Test Date: 2025-04-10 04:41:36 Measurements Intervals [place] Rate: 64 P: 48 MA: 186 QRS: -44 QRSD: 114 T: 108 QT: 437 QTc: 452 Interpretive Statements SINUS RHYTHM LEFT AXIS DEVIATION ANTEROSEPTAL MYOCARDIAL INFARCTION], PROBABLY RECENT BASELINE ARTIFACT- I, II, III, AVR, AVL, AVF, V4-V6 ABNORMAL ECG Compared to ECG 04/10/2025 01:38:26 NO SIGNIFICANT CHANGE Electronically Signed On 04-10-2025 06:17:57 CDT by Bipin Rodriguez D.O.
[2025-04-10] MEDS: METOPROLOL SUCCINATE EXT REL 25 MG TABCR PO (09:44)
[2025-04-10] MEDS: CLOPIDOGREL BISULFATE 75 MG TABLET PO (09:46)
[2025-04-10] MEDS: SACUBITRIL/VALSARTAN 24-26 MG TABLET 1 TAB PO ×2 (09:46→20:25)
[2025-04-10] MEDS: APIXABAN 5 MG TABLET PO ×2 (09:46→20:24)
[2025-04-10] MEDS: ASPIRIN 81 MG ENTERIC TABLET PO (09:47)
--- NOTE | 2025-04-10 09:59 | PM.CNCAR ---
Assessment and Plan Assessment and plan (1) Ischemic cardiomyopathy: Code(s): I25.5 - Ischemic cardiomyopathy Status: Acute (2) Systolic heart failure secondary to coronary artery disease: Code(s): I50.20 - Unspecified systolic (congestive) heart failure; I25.10 - Atherosclerotic heart disease of [place] coronary artery without angina pectoris Status: Acute (3) Paroxysmal atrial fibrillation: Code(s): I48.0 - Paroxysmal atrial fibrillation Status: Acute Plan 74-year-old woman with CAD (late presentation anterior STEMI 03/22/2025 status post PCI with residual obstructive ramus disease), ischemic cardiomyopathy (LVEF 25 30%), chronic systolic heart failure (due to STEMI), paroxysmal atrial fibrillation (onset with persistence after reperfusion and now on Eliquis), hypertension, and hyperlipidemia presented with shortness of breath and chest discomfort Acute on chronic systolic heart failure -continue Lasix 20 mg IV b.i.d. -will change carvedilol to metoprolol succinate 25 p.o. daily -will discontinue losartan and continue the Entresto 24-26 mg p.o. b.i.d. -if blood pressure tolerates, will add spironolactone 12.5 mg p.o. daily -continue to monitor renal function Paroxysmal atrial fibrillation -continue Eliquis 5 mg p.o. b.i.d. -will decrease amiodarone to 200 mg p.o. daily Coronary artery disease -continue Plavix 75 mg p.o. daily and likely discontinue aspirin 81 mg p.o. daily -continue atorvastatin 80 mg every evening History of Present Illness History of Present Illness Consult date/time: 04/10/25 09:59 Requesting physician: Dora Rendon DO Reason For Visit: NSTEMI Narrative: 74-year-old woman with CAD (late presentation anterior STEMI 03/22/2025 status post PCI with residual obstructive ramus disease), ischemic cardiomyopathy (LVEF 25 30%), chronic systolic heart failure (due to STEMI), paroxysmal atrial fibrillation (onset with persistence after reperfusion and now on Eliquis), hypertension, and hyperlipidemia presented with shortness of breath and chest discomfort. Shortness of breath occur this past Thursday and was associated with orthopnea and lower extremity swelling. She noted that she did have some canned vegetables as well as frozen vegetables along with adding mild amounts of salt to her food. She noted immediate shortness of breath after consuming canned tomatoes that she used to cook her food this past weekend. Shortly after the shortness of breath she started to have chest discomfort that is described as a heavy sensation. Since her admission and receiving IV diuretics, her shortness of breath and chest discomfort have resolved. Review of Systems Cardiovascular: Cardiovascular: Reports as per HPI Respiratory: Respiratory: Reports as per HPI [facility] Past Medical History Medical History (Updated 04/10/25 @ 04:13 by Dora Rendon DO) Tobacco abuse Quit smoking when she had her STEMI 03/22/[address] elevation (STEMI) myocardial infarction (03/22/25) Ischemic cardiomyopathy Hypertension Surgical History Surgical History (Updated 04/10/25 @ 04:26 by Dora Rendon DO) H/O cervical spine surgery X2 History of coronary artery stent placement (03/22/25) LAD is stent x2 Social History Social History (Updated 04/10/25 @ 03:42 by Dora Rendon DO) Social History: Code status: Full code Surrogate decision maker: Non Smoking packs per day: 0.33 Smoking cigarettes per day: 6.6 Years smoked: 13 Smoking pack-years: 4.29 Smoking status: Former smoker Tobacco type: cigarettes Second hand tobacco smoke exposure: No Alcohol intake: former Substance use: never Substance use type: does not use Lack of Transportation: No Lack of Food: Never True Current Housing: I Have Housing Concerned About Future Housing: No Difficulty Paying Gas/Electric Bills: No Difficulty Paying for Meds: No Currently Unemployed: No Education: High School Diploma/GED Difficulty w/ Childcare or Family Care: No Spiritual care concerns: No Meds Home Medications and Allergies Home Medications ?Medication ?Instructions ?Recorded ?Confirmed ?Type atorvastatin 40 mg tablet 80 mg (2 x 40 mg) PO HS #180 tabs 03/23/25 04/10/25 Rx carvedilol 3.125 mg tablet (Coreg) 6.25 mg (2 x 3.125 mg) PO Q12HR 03/23/25 04/10/25 Rx #180 tabs losartan 25 mg tablet 25 mg PO DAILY #90 tabs 03/23/25 04/10/25 Rx varenicline tartrate 0.5 mg (11)-1 See Rx Instructions PO .COMPLEX 03/23/25 04/10/25 Rx mg (42) tablets in a dose pack #53 ea (Chantix Starting Month Box) amiodarone 200 mg tablet (Pacerone) 400 mg (2 x 200 mg) PO DAILY@0800 03/27/25 04/10/25 Rx 30 days #60 tabs apixaban 5 mg tablet (Eliquis) 5 mg PO BID #60 tabs 03/27/25 04/10/25 Rx aspirin 81 mg tablet,delayed 81 mg PO QAM 30 days #30 tabs 03/27/25 04/10/25 Rx release clopidogrel 75 mg tablet 75 mg PO QAM 30 days #30 tabs 03/27/25 04/10/25 Rx sacubitril 24 mg-valsartan 26 mg 1 tab PO Q12HR 30 days #60 tabs 03/27/25 04/10/25 Rx tablet (Entresto) Allergies Allergy/AdvReac Type Severity Reaction Status Date / Time No Known Allergies Allergy Unverified 03/22/25 15:08 Vital Signs Vital Signs - 24 hr 04/09/25 21:10 04/09/25 21:29 04/09/25 21:44 Temperature 36.4 C Pulse Rate 52 L 61 Respiratory Rate 22 H 18 Blood Pressure 133/82 Pulse Oximetry 95 84 L Oxygen Delivery Room Air Room Air 04/09/25 21:50 04/09/25 22:00 04/09/25 22:02 Temperature Pulse Rate 60 59 L 61 Respiratory Rate 30 H 18 20 Blood Pressure 81/70 L Pulse Oximetry 98 98 97 Oxygen Delivery 04/09/25 22:04 04/09/25 22:15 04/09/25 22:16 Temperature Pulse Rate 59 L 59 L 58 L Respiratory Rate 24 H 22 H 20 Blood Pressure 109/73 113/83 Pulse Oximetry 96 98 96 Oxygen Delivery 04/09/25 22:42 04/09/25 22:45 04/09/25 22:47 Temperature Pulse Rate 56 L 58 L 62 Respiratory Rate 19 18 25 H Blood Pressure 103/82 Pulse Oximetry 97 97 98 Oxygen Delivery 04/09/25 23:03 04/09/25 23:33 04/09/25 23:37 Temperature 36.6 C Pulse Rate 57 L 60 Respiratory Rate 17 23 H Blood Pressure 100/74 125/72 Pulse Oximetry 97 99 99 Oxygen Delivery Room Air 04/10/25 00:00 04/10/25 00:00 04/10/25 02:00 Temperature Pulse Rate 73 66 Respiratory Rate Blood Pressure Pulse Oximetry 98 Oxygen Delivery Room Air 04/10/25 04:00 04/10/25 04:00 04/10/25 06:00 Temperature 36.5 C Pulse Rate 66 69 Respiratory Rate 20 Blood Pressure 114/78 Pulse Oximetry 95 95 Oxygen Delivery Room Air 04/10/25 08:35 04/10/25 09:03 04/10/25 09:44 Temperature 36.5 C Pulse Rate 60 64 Respiratory Rate 18 Blood Pressure 105/68 Pulse Oximetry 99 94 Oxygen Delivery Room Air Exam Const: General: comfortable HENMT: Mouth: Yes moist mucous membranes Eyes: EOM: EOMs intact bilaterally Neck: Neck: no JVD Resp: Effort & Inspection: normal respiratory effort Auscultation: clear to auscultation bilaterally Cardio: Rate: regular rate Rhythm: regular rhythm Heart sounds: no gallops GI: GI Palp: Yes Soft to palpation Extrem: General: no pedal edema Results Labs and Meds 04/10/25 03:39 04/10/25 03:39 Lab results: Cardiac Enzymes 04/09/25 04/10/25 04/10/25 Range/Units 21:26 00:22 03:39 AST 40 H (14-36) U/L Troponin I 0.147 H* 0.149 H* 0.140 H* (0.000-0.034) ng/mL Coagulation 04/09/25 Range/Units 21:26 PT 18.7 H (11.1-14.7) Seconds APTT 30.7 (22.3-36.8) Seconds CBC 04/09/25 04/10/25 Range/Units 21:26 03:39 WBC 7.9 6.1 (4.5-10.0) K/mm3 RBC 3.88 L 3.73 L (4.2-5.4) M/mm3 Hgb 12.2 11.6 L (12.0-15.0) g/dL Hct 37.2 35.6 L (37.0-47.0) % Plt Count 232 D 203 (150-375) k/mm3 Lymph # (Auto) 0.76 L 0.80 L (0.9-3.2) K/mm3 [place] # (Auto) 0.7 H 0.5 (0.1-0.6) K/mm3 Eos # (Auto) 0.1 0.0 (0-0.3) K/mm3 Baso # (Auto) 0.0 0.0 (0.0-0.1) K/mm3 Comprehensive Metabolic Panel 04/09/25 04/10/25 Range/Units 21:26 03:39 Sodium 132 L 134 L (137-145) mmol/L Potassium 4.8 4.4 (3.4-5.0) mmol/L Chloride 102 105 (98-107) mmol/L Carbon Dioxide 21 L 21 L (22-30) mmol/L BUN 41 H 37 H (7-17) mg/dL Creatinine 1.36 H 1.28 H (0.7-1.0) mg/dL Glucose 115 H 112 H (65-110) mg/dL Calcium 9.6 9.4 (8.4-10.2) mg/dL AST 40 H (14-36) U/L ALT 36 H (6-35) U/L Alkaline Phosphatase 98 (38-126) U/L Total Protein 6.2 L (6.3-8.2) g/dL Albumin 3.9 (3.5-5.1) g/dL Intake and Output 04/09/25 04/10/25 04/10/25 23:59 07:59 15:59 Intake Total 250 Output Total 2109 700 Balance -1859 Intake: Oral 250 Output: Urine 2109 700 Other: # Unmeasured Voids 1 Patient Weight 04/10/25 23:59 Weight 59.7 kg
--- NOTE | 2025-04-10 17:02 | PC.NURSE ---
On 04/10/25, the student, [ ], provided care and completed [employer] documentation on this patient. I have reviewed the student's documentation and agree with the findings. Randi Juan.
--- NOTE | 2025-04-10 17:10 | PM.IMPN ---
Progress Note: A&P Assessment and Plan (1) Systolic heart failure secondary to coronary artery disease: Code(s): I50.20 - Unspecified systolic (congestive) heart failure; I25.10 - Atherosclerotic heart disease of [place] coronary artery without angina pectoris Status: Acute (2) Ischemic cardiomyopathy: Code(s): I25.5 - Ischemic cardiomyopathy Status: Acute (3) Elevated troponin: Code(s): R79.89 - Other specified abnormal findings of blood chemistry Status: Acute (4) Hyperlipidemia: Qualifiers: Hyperlipidemia type: pure hypercholesterolemia Qualified Code(s): E78.00 - Pure hypercholesterolemia, unspecified Code(s): E78.5 - Hyperlipidemia, unspecified Status: Acute (5) Hypertension: Qualifiers: Hypertension type: primary hypertension Qualified Code(s): I10 - Essential (primary) hypertension Code(s): I10 - Essential (primary) hypertension Status: Acute (6) Tobacco abuse: Code(s): Z72.0 - Tobacco use Status: Acute Plan 1.HFrEF exacerbation Patient is well known to Cardiology Service for having ischemic cardiomyopathy in March/2025. She underwent PCI to LAD for STEMI. Echo at that time EF was 25-30%. Discharge with LifeVest but patient is not using it due to logistic This time presents was dyspnea for a couple days that progressively worse EKG shows anterior need elevation which could be from the remaining ischemic coronary artery disease Patient was started was IV Lasix in the ED Cardiology consulted, IV Lasix to 80 mg b.i.d. Carvedilol was switched to metoprolol succinate 25 mg daily Losartan discontinued Continue Entresto 24-26 mg p.o. b.i.d. MRA agent will be added once BP tolerated per Cardiology Daily standing weight, strict I&Os,Na<2gs 2. Coronary artery disease status post PCI 03/22/2025 Continue Plavix and atorvastatin 80 mg HS 3. Paroxysmal atrial fibrillation Amiodarone will be decreased to 200 mg p.o. daily Continue Eliquis 5 mg p.o. b.i.d. 3. Dyslipidemia Continue atorvastatin 80 mg HS 4. Tobacco abuse Quit in March 2025 Encouraged to abstain Subjective Date/time seen: 04/10/25 17:10 Interval history: Patient was presented with shortness of breath on exertion. This morning she is doing a lot better. she does not have chest tightness or shortness of breath. She is able to ambulate to the bathroom without dyspnea. Exam Narrative: APPEARANCE: No acute distress, nontoxic, resting in bed EYES: EOMI HEENT: Normocephalic, atraumatic, OMM RESPIRATORY: No respiratory distress Clear to auscultation bilaterally with no rhonchi wheezing or rales. CARDIOVASCULAR: RRR, S1 and S2 without murmurs rubs or gallops. ABDOMINAL: Soft, nontender, nondistended, no rebound or guarding MSK: 5/5 motor strength throughout her extremities. No leg edema. NEURO: Awake and alert. Following commands, speech normal, no focal deficits SKIN:: Warm, dry. No rashes lesions or abrasions PSYCHIATRIC: Normal affect/mood, Objective Data Vital Signs Vital Signs: Vital Signs - 24 hr 04/09/25 21:10 04/09/25 21:29 04/09/25 21:44 Temperature 36.4 C Pulse Rate 52 L 61 Respiratory Rate 22 H 18 Blood Pressure 133/82 Pulse Oximetry 95 84 L Oxygen Delivery Room Air Room Air 04/09/25 21:50 04/09/25 22:00 04/09/25 22:02 Temperature Pulse Rate 60 59 L 61 Respiratory Rate 30 H 18 20 Blood Pressure 81/70 L Pulse Oximetry 98 98 97 Oxygen Delivery 04/09/25 22:04 04/09/25 22:15 04/09/25 22:16 Temperature Pulse Rate 59 L 59 L 58 L Respiratory Rate 24 H 22 H 20 Blood Pressure 109/73 113/83 Pulse Oximetry 96 98 96 Oxygen Delivery 04/09/25 22:42 04/09/25 22:45 04/09/25 22:47 Temperature Pulse Rate 56 L 58 L 62 Respiratory Rate 19 18 25 H Blood Pressure 103/82 Pulse Oximetry 97 97 98 Oxygen Delivery 04/09/25 23:03 04/09/25 23:33 04/09/25 23:37 Temperature 36.6 C Pulse Rate 57 L 60 Respiratory Rate 17 23 H Blood Pressure 100/74 125/72 Pulse Oximetry 97 99 99 Oxygen Delivery Room Air 04/10/25 00:00 04/10/25 00:00 04/10/25 02:00 Temperature Pulse Rate 73 66 Respiratory Rate Blood Pressure Pulse Oximetry 98 Oxygen Delivery Room Air 04/10/25 04:00 04/10/25 04:00 04/10/25 06:00 Temperature 36.5 C Pulse Rate 66 69 Respiratory Rate 20 Blood Pressure 114/78 Pulse Oximetry 95 95 Oxygen Delivery Room Air 04/10/25 08:00 04/10/25 08:35 04/10/25 09:03 Temperature 36.5 C Pulse Rate 68 60 Respiratory Rate 18 Blood Pressure 105/68 Pulse Oximetry 99 94 Oxygen Delivery Room Air 04/10/25 09:44 04/10/25 10:00 04/10/25 12:00 Temperature Pulse Rate 64 62 63 Respiratory Rate Blood Pressure Pulse Oximetry Oxygen Delivery 04/10/25 12:15 Temperature 36.4 C Pulse Rate 72 Respiratory Rate 20 Blood Pressure 103/69 Pulse Oximetry 100 Oxygen Delivery Intake/Output Intake/Output: Intake & Output 04/07/25 04/08/25 04/09/25 04/10/25 23:59 23:59 23:59 23:59 Intake Total 370 Output Total 3360 Balance -2990 Meds/Results Medications: Active Medications Generic Name Dose Route Start Last Admin Trade Name Nickq PRN Reason Stop Dose Admin Amiodarone HCl 200 mg 04/11/25 08:00 Amiodarone Hcl 200 Mg Tablet PO DAILY@0800 [facility] Apixaban 5 mg 04/10/25 09:00 04/10/25 09:46 Apixaban 5 Mg Tablet PO 5 mg Q12HR [facility] Administration Aspirin 81 mg 04/10/25 09:00 04/10/25 09:47 Aspirin 81 Mg Enteric Tablet PO 81 mg QAM [facility] Administration Atorvastatin Calcium 80 mg 04/10/25 21:00 Atorvastatin 40 Mg Tablet PO [facility] Clopidogrel Bisulfate 75 mg 04/10/25 09:00 04/10/25 09:46 Clopidogrel Bisulfate 75 Mg Tablet PO 75 mg QAM [facility] Administration Furosemide 20 mg 04/10/25 21:00 Furosemide Inj 40 Mg/4 Ml Vial IV PUSH BID [facility] Metoprolol Succinate 25 mg 04/10/25 09:00 04/10/25 09:44 Metoprolol Succinate Ext Rel 25 Mg Tabcr PO 25 mg QAM [facility] Administration Sacubitril/Valsartan 1 tab 04/10/25 09:00 04/10/25 09:46 Sacubitril/Valsartan 24-26 Mg Tablet PO 1 tab Q12HR [facility] Administration Radiology Results: ITS Impressions Chest X-Ray 04/10/25 07:41 Impression: 1: Diffuse bilateral interstitial infiltrates which may represent edema or pneumonia. Labs Labs: Laboratory Results - last 24 hr 04/09/25 04/10/25 04/10/25 21:26 00:22 03:39 WBC 7.9 6.1 RBC 3.88 L 3.73 L Hgb 12.2 11.6 L Hct 37.2 35.6 L MCV 95.9 95.4 MCH 31.4 31.1 MCHC 32.8 32.6 RDW 14.2 14.2 Plt Count 232 D 203 MPV 11.7 H 11.9 H Immature Gran % (Auto) 0.5 0.2 Neut % (Auto) 80.0 H 77.2 H Lymph % (Auto) 9.6 L 13.1 L [place] % (Auto) 8.8 H 8.5 Eos % (Auto) 0.8 0.7 Baso % (Auto) 0.3 0.3 Lymph # (Auto) 0.76 L 0.80 L [place] # (Auto) 0.7 H 0.5 Eos # (Auto) 0.1 0.0 Baso # (Auto) 0.0 0.0 Abs Immat Gran (auto) 0.04 H 0.01 Absolute Neuts (auto) 6.3 4.7 Absolute Nucleated RBC 0.000 0.000 Nucleated RBC % 0.0 0.0 PT 18.7 H INR 1.6 APTT 30.7 Sodium 132 L 134 L Potassium 4.8 4.4 Chloride 102 105 Carbon Dioxide 21 L 21 L Anion Gap 9 8 BUN 41 H 37 H Creatinine 1.36 H 1.28 H Estim Creat Clear Calc 29 30 Estimated GFR 38 L 41 L Glucose 115 H 112 H Calcium 9.6 9.4 Magnesium 2.2 Total Bilirubin 0.9 AST 40 H ALT 36 H Alkaline Phosphatase 98 Troponin I 0.147 H* 0.149 H* 0.140 H* NT-Pro-B Natriuret Pep 01465 H Total Protein 6.2 L Albumin 3.9 Quality VTE Prophylaxis VTE prophylaxis: pharmacologic ordered (Continue home Eliquis)
--- NOTE | 2025-04-10 18:25 | PC.NURSE ---
On 04/10/25, the ASSOCIATE PROFESSOR OF ENGINEERING, [Get Pete ], provided care and completed [facility] documentation on this patient. I have reviewed the ASSOCIATE PROFESSOR OF ENGINEERING's documentation and agree with the findings.
[2025-04-10 19:15] LABS: Alanine Aminotransferase 32 U/L (6-35); Albumin Level 3.5 g/dL (3.5-5.1); Alkaline Phosphatase 87 U/L (38-126); Anion Gap 9 mmol/L (4-12); Aspartate Amino Transferase 34 U/L (14-36); Bilirubin,Total 0.6 mg/dL (0.2-1.3); Blood Urea Nitrogen 41 mg/dL (7-17); Calcium 9.2 mg/dL (8.4-10.2); Carbon Dioxide 25 mmol/L (22-30); Chloride 103 mmol/L (98-107); Estimated CRCL calculation 28 ml/min; Estimated Glomerular Filt Rate 37; Glucose 172 mg/dL (65-110); Potassium 3.6 mmol/L (3.4-5.0); Sodium 137 mmol/L (137-145); Total Protein 5.7 g/dL (6.3-8.2)
[2025-04-10] MEDS: ATORVASTATIN 40 MG TABLET 80 MG PO (20:24)
[2025-04-10] MEDS: FUROSEMIDE INJ 40 MG/4 ML VIAL 20 MG IV PUSH (20:24)
[2025-04-11] VITALS: PULSE 60
[2025-04-11 04:00] VITALS: PULSE 60
[2025-04-11 04:17] LABS: Hematocrit 34.2 % (37.0-47.0); Hemoglobin 11.0 g/dL (12.0-15.0); Mean Corpuscular HGB Conc 32.2 g/dl (32-36); Mean Corpuscular Hemoglobin 31.3 pg (26-34); Mean Corpuscular Volume 97.2 fl (80-100); Platelet Count Result 168 k/mm3 (150-375); Red Blood Count 3.52 M/mm3 (4.2-5.4); White Blood Count 4.5 K/mm3 (4.5-10.0)
[2025-04-11 04:46] LABS: Alanine Aminotransferase 27 U/L (6-35); Albumin Level 3.2 g/dL (3.5-5.1); Alkaline Phosphatase 81 U/L (38-126); Anion Gap 5 mmol/L (4-12); Aspartate Amino Transferase 30 U/L (14-36); Bilirubin,Total 0.4 mg/dL (0.2-1.3); Blood Urea Nitrogen 38 mg/dL (7-17); Calcium 9.0 mg/dL (8.4-10.2); Carbon Dioxide 25 mmol/L (22-30); Chloride 105 mmol/L (98-107); Estimated CRCL calculation 32 ml/min; Estimated Glomerular Filt Rate 43; Glucose 111 mg/dL (65-110); Potassium 3.7 mmol/L (3.4-5.0); Sodium 135 mmol/L (137-145); Total Protein 5.2 g/dL (6.3-8.2)
[2025-04-11 07:34] VITALS: BP 112/71; PULSE 57; RESP 16; TEMP 37.3; O2SAT 99
[2025-04-11 08:00] VITALS: PULSE 57; PULSE 59; RESP 16; O2SAT 99
--- NOTE | 2025-04-11 08:31 | PM.IMPN ---
Progress Note: A&P Assessment and Plan (1) Systolic heart failure secondary to coronary artery disease: Code(s): I50.20 - Unspecified systolic (congestive) heart failure; I25.10 - Atherosclerotic heart disease of [place] coronary artery without angina pectoris Status: Acute (2) Ischemic cardiomyopathy: Code(s): I25.5 - Ischemic cardiomyopathy Status: Acute (3) Elevated troponin: Code(s): R79.89 - Other specified abnormal findings of blood chemistry Status: Acute (4) Hyperlipidemia: Qualifiers: Hyperlipidemia type: pure hypercholesterolemia Qualified Code(s): E78.00 - Pure hypercholesterolemia, unspecified Code(s): E78.5 - Hyperlipidemia, unspecified Status: Acute (5) Hypertension: Qualifiers: Hypertension type: primary hypertension Qualified Code(s): I10 - Essential (primary) hypertension Code(s): I10 - Essential (primary) hypertension Status: Acute (6) Tobacco abuse: Code(s): Z72.0 - Tobacco use Status: Acute Plan 1.HFrEF exacerbation Patient is well known to Cardiology Service for having ischemic cardiomyopathy in March/2025. She underwent PCI to LAD for STEMI. Echo at that time EF was 25-30%. Discharge with LifeVest but patient is not using it due to logistic This time presents was dyspnea for a couple days that progressively worse EKG shows anterior need elevation which could be from the remaining ischemic coronary artery disease Patient was started was IV Lasix in the ED Cardiology consulted, IV Lasix to 80 mg b.i.d. Carvedilol was switched to metoprolol succinate 25 mg daily Losartan discontinued Continue Entresto 24-26 mg p.o. b.i.d. MRA agent will be added once BP tolerated per Cardiology Daily standing weight, strict I&Os,Na<2gs 2. Coronary artery disease status post PCI 03/22/2025 Continue Plavix and atorvastatin 80 mg HS 3. Paroxysmal atrial fibrillation Amiodarone will be decreased to 200 mg p.o. daily Continue Eliquis 5 mg p.o. b.i.d. 3. Dyslipidemia Continue atorvastatin 80 mg HS 4. Tobacco abuse Quit in March 2025 Encouraged to abstain Subjective Date/time seen: 04/11/25 08:31 Review of Systems Review of Systems: 12 systems were reviewed with pertinent positives and negatives per HPI. Except as documented in the HPI, all other systems were reviewed and are negative. Exam Narrative: APPEARANCE: No acute distress, nontoxic, resting in bed EYES: EOMI HEENT: Normocephalic, atraumatic, OMM RESPIRATORY: No respiratory distress Clear to auscultation bilaterally with no rhonchi wheezing or rales. CARDIOVASCULAR: RRR, S1 and S2 without murmurs rubs or gallops. ABDOMINAL: Soft, nontender, nondistended, no rebound or guarding MSK: 5/5 motor strength throughout her extremities. No leg edema. NEURO: Awake and alert. Following commands, speech normal, no focal deficits SKIN:: Warm, dry. No rashes lesions or abrasions PSYCHIATRIC: Normal affect/mood, Const: Other: Appears stated age, thin body habitus, mild respiratory distress HENMT: Other: Mucous membranes are tacky, no oral pharyngeal erythema, fair dentition Eyes: Other: Pupils are equal and reactive, no scleral icterus, no conjunctival pallor Neck: Other: JVD up to the angle of the jaw, no lymphadenopathy Resp: Other: Accessory muscle use, conversational tachypnea Cardio: Other: Regular rate, regular rhythm, 2+ bilateral radial pedal pulses, JVD to the angle of the jaw GI: Other: Soft, nontender, nondistended, normoactive bowel sounds Skin: Other: No jaundice, no pallor Neuro: Other: Alert oriented x4, speech is clear, no facial asymmetry, no localizing neurologic deficits noted during the course of conversation Extrem: Other: No cyanosis, no edema Psych: Other: Mildly anxious but otherwise appropriate mood and affect, pleasant and cooperative, judgment and insight intact Objective Data Vital Signs Vital Signs: Vital Signs - 24 hr 04/10/25 08:35 04/10/25 09:03 04/10/25 09:44 Temperature 97.7 F Pulse Rate 60 64 Respiratory Rate 18 Blood Pressure 105/68 Pulse Oximetry 99 94 Oxygen Delivery Room Air Fraction of Inspired Oxygen 04/10/25 10:00 04/10/25 12:00 04/10/25 12:15 Temperature 97.6 F Pulse Rate 62 63 72 Respiratory Rate 20 Blood Pressure 103/69 Pulse Oximetry 100 Oxygen Delivery Fraction of Inspired Oxygen 04/10/25 16:00 04/10/25 16:00 04/10/25 19:46 Temperature 98.4 F 98.3 F Pulse Rate 58 L 58 L 63 Respiratory Rate 20 20 Blood Pressure 104/58 L 90/55 L Pulse Oximetry 98 97 Oxygen Delivery Fraction of Inspired Oxygen 04/10/25 20:00 04/10/25 20:35 04/10/25 23:51 Temperature 98.2 F Pulse Rate 63 62 59 L Respiratory Rate 20 Blood Pressure 118/70 Pulse Oximetry 94 96 Oxygen Delivery Room Air Fraction of Inspired Oxygen 21 04/11/25 00:00 04/11/25 04:00 04/11/25 07:34 Temperature 99.1 F Pulse Rate 60 60 57 L Respiratory Rate 16 Blood Pressure 112/71 Pulse Oximetry 99 Oxygen Delivery Fraction of Inspired Oxygen Intake/Output Intake/Output: Intake & Output 04/08/25 04/09/25 04/10/25 04/11/25 23:59 23:59 23:59 23:59 Intake Total 620 200 Output Total 4560 300 Balance -3940 -100 Meds/Results Medications: Active Medications Generic Name Dose Route Start Last Admin Trade Name Freq PRN Reason Stop Dose Admin Amiodarone HCl 200 mg 04/11/25 08:00 Amiodarone Hcl 200 Mg Tablet PO DAILY@0800 [facility] Apixaban 5 mg 04/10/25 09:00 04/10/25 20:24 Apixaban 5 Mg Tablet PO 5 mg Q12HR [facility] Administration Aspirin 81 mg 04/10/25 09:00 04/10/25 09:47 Aspirin 81 Mg Enteric Tablet PO 81 mg QAM [facility] Administration Atorvastatin Calcium 80 mg 04/10/25 21:00 04/10/25 20:24 Atorvastatin 40 Mg Tablet PO 80 mg HS [facility] Administration Clopidogrel Bisulfate 75 mg 04/10/25 09:00 04/10/25 09:46 Clopidogrel Bisulfate 75 Mg Tablet PO 75 mg QAM [facility] Administration Furosemide 20 mg 04/10/25 21:00 04/10/25 20:24 Furosemide Inj 40 Mg/4 Ml Vial IV PUSH 20 mg BID [facility] Administration Metoprolol Succinate 25 mg 04/10/25 09:00 04/10/25 09:44 Metoprolol Succinate Ext Rel 25 Mg Tabcr PO 25 mg QAM [facility] Administration Sacubitril/Valsartan 1 tab 04/10/25 09:00 04/10/25 20:25 Sacubitril/Valsartan 24-26 Mg Tablet PO 1 tab Q12HR [facility] Administration Radiology Results: ITS Impressions Chest X-Ray 04/10/25 07:41 Impression: 1: Diffuse bilateral interstitial infiltrates which may represent edema or pneumonia. Labs Labs: Laboratory Results - last 24 hr 04/10/25 04/11/25 18:35 03:57 WBC 4.5 RBC 3.52 L Hgb 11.0 L Hct 34.2 L MCV 97.2 MCH 31.3 MCHC 32.2 RDW 14.6 H Plt Count 168 MPV 11.6 H Sodium 137 135 L Potassium 3.6 3.7 Chloride 103 105 Carbon Dioxide 25 25 Anion Gap 9 5 BUN 41 H 38 H Creatinine 1.41 H 1.22 H Estim Creat Clear Calc 28 32 Estimated GFR 37 L 43 L Glucose 172 H 111 H Calcium 9.2 9.0 Total Bilirubin 0.6 0.4 AST 34 30 ALT 32 27 Alkaline Phosphatase 87 81 Total Protein 5.7 L 5.2 L Albumin 3.5 3.2 L Quality VTE Prophylaxis VTE prophylaxis: pharmacologic ordered (Continue home Eliquis) Hospitalist [facility] Advance Care Plan I have confirmed that the patient's Advanced Care Plan is present, code status is documented, or surrogate decision maker is listed in patient medical record.: Yes Medication Reconciliation I have utilized all available resources to obtain, update and review the patients current medications (includes all prescriptions, OTC, herbals, cannabis, and nutritional supplements).: Yes
[2025-04-11 08:40] VITALS: PULSE 63
[2025-04-11] MEDS: APIXABAN 5 MG TABLET PO (08:40)
[2025-04-11] MEDS: CLOPIDOGREL BISULFATE 75 MG TABLET PO (08:40)
[2025-04-11] MEDS: METOPROLOL SUCCINATE EXT REL 25 MG TABCR PO (08:40)
[2025-04-11] MEDS: SACUBITRIL/VALSARTAN 24-26 MG TABLET 1 TAB PO (08:40)
[2025-04-11] MEDS: FUROSEMIDE INJ 40 MG/4 ML VIAL 20 MG IV PUSH (08:40)
[2025-04-11] MEDS: AMIODARONE HCL 200 MG TABLET PO (08:40)
[2025-04-11] MEDS: ASPIRIN 81 MG ENTERIC TABLET PO (08:40)
[2025-04-11 12:00] VITALS: PULSE 66
--- NOTE | 2025-04-11 12:59 | P.DS_ITS ---
DS: Admitting Diagnosis Discharge Date 04/11/2025 Admitting Diagnosis Shortness of breath, chest pressure DS: Discharge Diagnosis Discharge Diagnosis (1) Systolic heart failure secondary to coronary artery disease: Code(s): I50.20 - Unspecified systolic (congestive) heart failure; I25.10 - Atherosclerotic heart disease of cahto coronary artery without angina pectoris Status: Acute (2) Ischemic cardiomyopathy: Code(s): I25.5 - Ischemic cardiomyopathy Status: Acute (3) Elevated troponin: Code(s): R79.89 - Other specified abnormal findings of blood chemistry Status: Acute (4) Hyperlipidemia: Qualifiers: Hyperlipidemia type: pure hypercholesterolemia Qualified Code(s): E78.00 - Pure hypercholesterolemia, unspecified Code(s): E78.5 - Hyperlipidemia, unspecified Status: Acute (5) Hypertension: Qualifiers: Hypertension type: primary hypertension Qualified Code(s): I10 - Essential (primary) hypertension Code(s): I10 - Essential (primary) hypertension Status: Acute (6) Tobacco abuse: Code(s): Z72.0 - Tobacco use Status: Acute Plan Please refer to hospital course for brief summary 1.HFrEF exacerbation Patient is well known to Cardiology Service for having ischemic cardiomyopathy in March/2025. She underwent PCI to LAD for STEMI. Echo at that time EF was 25-30%. Discharge with LifeVest but patient is not using it due to logistic This time presents was dyspnea for a couple days that progressively worse EKG shows anterior need elevation which could be from the remaining ischemic coronary artery disease Patient was started was IV Lasix in the ED Cardiology consulted, IV Lasix to 80 mg b.i.d. Carvedilol was switched to metoprolol succinate 25 mg daily Losartan discontinued Continue Entresto 24-26 mg p.o. b.i.d. MRA agent will be added once BP tolerated per Cardiology Daily standing weight, strict I&Os,Na<2gs 2. Coronary artery disease status post PCI 03/22/2025 Continue Plavix and atorvastatin 80 mg HS 3. Paroxysmal atrial fibrillation Amiodarone will be decreased to 200 mg p.o. daily Continue Eliquis 5 mg p.o. b.i.d. 3. Dyslipidemia Continue atorvastatin 80 mg HS 4. Tobacco abuse Quit in March 2025 Encouraged to abstain DS: Summary Hospital Course Hospital Course: 74-year-old female with a past medical history of STEMI 03/22/2025, reperfusion AFib RVR, ischemic cardiomyopathy with EF of 25-30% and tobacco abuse who presented to the ER with shortness of breath and chest heaviness. The patient reports that she felt wonderful when she 1st was discharged home. But over the last 3-4 days she had had difficulty with poor appetite feeling nauseated when she would try to drink fluids. She developed increasing shortness of breath with orthopnea. Over the last 48 hours she had developed chest pressure when trying to take a deep breath. She felt as if someone was sitting on her chest. She denied any swelling in her lower extremities but reported that her abdomen felt bloated. She also felt like she was not producing as much urine as usual. She had developed a nonproductive cough over the last 2-3 days as well. The cough was worse at night when she would lie down. She also was having some paroxysmal nocturnal dyspnea. She denies having any palpitations. She was discharged with a LifeVest but she was having difficulty taking the life vest on and off and changing the battery. She reported that the life vest was shocking her inappropriately. Since she did not have any right home to help her with a LifeVest she decided to just send back. She reports that she has been compliant with her other cardiac medications. She has been trying to eat a low sugar and low fat diet. She has been trying to eat vegetables without salt. She reports that she was tolerating Chantix well for the starter doses but once she increase the dose of Chantix she felt like it was making her nauseous d smoking. without salt so she has been using some additional salt on some items. She denies any jaw pain chest pain or diaphoresis like she had when she had her STEMI. She was had taking Chantix to help her quit smoking. She was having good success with the initial dose of Chantix but when the dose increase she has felt like it was making her nauseous and have less appetite so she quit taking the Chantix. She is still abstaining from smoking. 04/11: I assumed care on 03/22. patient reports she is unable to wear the life vest due to personal reason. She reports feeling good and want to be discharged today. Discussed with cardiology who aggress to add spironolactone 12.5 mg PO QD as OP. During hospitalization patient Carvedilol has been changed to metoprolol succinate 25mg PO QD and discontinued Losartan and started Entresto 24-26 PO BID and decreased Amiodarone to 200mg PO QD. Advised to wear life vest. On the day of discharge, the patient was seen and examined. Vital signs were stable. Physical exam were stable and labs were reviewed at length. Discharge instructions, medications, and follow-up appointments were discussed with the patient at length and all day questions were answered. ER warnings were given. Status at Discharge Cognitive/behavioral status at discharge: Stable Time Spent with Patient Time attestation: Total time spent providing and/or coordinating discharge services: 45 minutes His Exam Narrative: APPEARANCE: No acute distress, nontoxic, resting in bed EYES: EOMI HEENT: Normocephalic, atraumatic, OMM RESPIRATORY: No respiratory distress Clear to auscultation bilaterally with no rhonchi wheezing or rales. CARDIOVASCULAR: RRR, S1 and S2 without murmurs rubs or gallops. ABDOMINAL: Soft, nontender, nondistended, no rebound or guarding MSK: 5/5 motor strength throughout her extremities. No leg edema. NEURO: Awake and alert. Following commands, speech normal, no focal deficits SKIN:: Warm, dry. No rashes lesions or abrasions PSYCHIATRIC: Normal affect/mood, Const: Other: Appears stated age, thin body habitus, mild respiratory distress HENMT: Other: Mucous membranes are tacky, no oral pharyngeal erythema, fair dentition Eyes: Other: Pupils are equal and reactive, no scleral icterus, no conjunctival pallor Neck: Other: JVD up to the angle of the jaw, no lymphadenopathy Resp: Other: Accessory muscle use, conversational tachypnea Cardio: Other: Regular rate, regular rhythm, 2+ bilateral radial pedal pulses, JVD to the angle of the jaw GI: Other: Soft, nontender, nondistended, normoactive bowel sounds Skin: Other: No jaundice, no pallor Neuro: Other: Alert oriented x4, speech is clear, no facial asymmetry, no localizing neurologic deficits noted during the course of conversation Extrem: Other: No cyanosis, no edema Psych: Other: Mildly anxious but otherwise appropriate mood and affect, pleasant and cooperative, judgment and insight intact DS: Data Data Completed and Pending Labs on day of discharge: Labs from last 24 hours 04/11/25 04/10/25 03:57 18:35 WBC 4.5 RBC 3.52 L Hgb 11.0 L Hct 34.2 L MCV 97.2 MCH 31.3 MCHC 32.2 RDW 14.6 H Plt Count 168 MPV 11.6 H Sodium 135 L 137 Potassium 3.7 3.6 Chloride 105 103 Carbon Dioxide 25 25 Anion Gap 5 9 BUN 38 H 41 H Creatinine 1.22 H 1.41 H Estim Creat Clear Calc 32 28 Estimated GFR 43 L 37 L Glucose 111 H 172 H Calcium 9.0 9.2 Total Bilirubin 0.4 0.6 AST 30 34 ALT 27 32 Alkaline Phosphatase 81 87 Total Protein 5.2 L 5.7 L Albumin 3.2 L 3.5 Imaging Radiologist's impression: ITS Impressions Chest X-Ray 04/10/25 07:41 Impression: 1: Diffuse bilateral interstitial infiltrates which may represent edema or pneumonia. Discharge Plan Discharge Attending physician on discharge: Júnior Felix Consulting providers: Harris Arenas Discharging Clinician: Júnior Felix Anticipated Discharge Date/Time: 04/11/25 13:08 Patient Disposition: Home Activity: as tolerated Diet: heart healthy Discharge Instructions: Wear life vest all time Change in medications: Lasix 20 mg PO Once a day Carvedilol has been changed to metoprolol succinate 25mg PO QD Discontinued Losartan and started Entresto 24-26 PO BID Decreased Amiodarone to 200mg PO QD. Check blood pressure 1 to 2 times a day. Record and bring into your doctor for review. Call your doctor if your blood pressure is greater than 180/110 or less than 90/45. Walk with cane or other assist device. Take precautions to avoid falls. Rise slowly from a lying or sitting position. Pause before standing or walking. Contact your doctor or call 911 and come to the Emergency Room if you have any type of trauma, lightheadedness with standing or other worrisome symptoms. Avoid NSAIDs (ibuprofen, naproxen, Aleve). Tylenol is safe to take. Follow-up with your primary care provider in 1-2 weeks. Please call for appointment. Follow-up with Cardiology in 2-4 weeks. Please call for an appointment. Thank you for using [facility] for your health care needs. Patient Instructions: Metoprolol (By mouth), Furosemide (By mouth), Apixaban (By mouth), Heart Failure (DC) Patient Language: Bulgarian Stand Alone Forms: General Discharge Information Follow-up/Referrals: Harris Arenas MD [Physician, Cardiology] Jeremy,MD Praveena [Primary Care Provider, Unknown] Discharge Medications: New amiodarone [Pacerone] 200 mg Tablet 200 mg PO DAILY@0800 Qty: 30 0RF metoprolol succinate [Toprol XL] 25 mg Tablet Extended Release 24 Hr 25 mg PO QAM Qty: 30 0RF furosemide [Lasix] 40 mg tablet 20 mg PO DAILY Qty: 10 0RF Continued atorvastatin 40 mg Tablet 80 mg PO HS Qty: 180 3RF varenicline tartrate [Chantix Starting Month Box] 0.5 mg (11)- 1 mg (42) tablets,dose pack See Rx Instructions .ROUTE .COMPLEX Qty: 53 0RF Rx Instructions: orally per package directions clopidogrel 75 mg Tablet 75 mg PO QAM 30 Days Qty: 30 11RF aspirin 81 mg Tablet,Delayed Release (Dr/Ec) 81 mg PO QAM 30 Days Qty: 30 11RF sacubitril-valsartan [Entresto] 24-26 mg Tablet 1 tab PO Q12HR 30 Days Qty: 60 0RF Eliquis 5 mg tablet 5 mg PO BID Qty: 60 3RF Discontinued carvedilol [Coreg] 3.125 mg Tablet 6.25 mg PO Q12HR Qty: 180 3RF losartan 25 mg Tablet 25 mg PO DAILY Qty: 90 3RF amiodarone [Pacerone] 200 mg Tablet 400 mg PO DAILY@0800 30 Days Qty: 60 0RF Date of admission: 04/09/25 22:41 Primary Care Provider: Jeremy,Praveena Admitting Provider: Dora Rendon Attending physician on admission: Dora Rendon Condition: Improved
== END 2025-04-11 14:50 | disposition home or self-care (01) | DRG 280 ==
LOC: ANHED 21:39 → ANHIMU 22:57
PROVIDERS: Registered Nurse; Student in an Organized Health Care Education/Training Program; Admitting Provider Internal Medicine; Emergency Provider Emergency Medicine; PCP Family Medicine; Visit Provider General Practice
DX: I11.0 Hypertensive heart disease with heart failure (principal); I50.23 Acute on chronic systolic (congestive) heart failure; I21.3 ST elevation (STEMI) myocardial infarction of unspecified site; I25.10 Atherosclerotic heart disease of native coronary artery without angina pectoris; I25.5 Ischemic cardiomyopathy; I48.0 Paroxysmal atrial fibrillation; R79.89 Other specified abnormal findings of blood chemistry; E78.00 Pure hypercholesterolemia, unspecified; Z79.01 Long term (current) use of anticoagulants; Z79.02 Long term (current) use of antithrombotics/antiplatelets; Z79.82 Long term (current) use of aspirin; Z79.899 Other long term (current) drug therapy; Z87.891 Personal history of nicotine dependence; Z95.5 Presence of coronary angioplasty implant and graft
CPT/HCPCS: 36415; 71045; 80048; 80053; 83735; 83880; 84484; 85025; 85027; 85610; 85730; 93005; 96374; 99285; A9270; J1644; J1938

== ENCOUNTER 2025-04-30 15:43 | Inpatient (IN) | payer MEDICARE, SELFPAY ==
--- NOTE | ~2025-04-30 | XR_ITS ---
EXAMINATION: XR chest 2V, 04/30/2025 17:00 CDT HISTORY: shortness of breath COMPARISON: No comparisons available. Technique: 2 views obtained. Findings: Mild pulmonary venous congestion. Small basilar infiltrates and effusions. No pneumothorax. Mild cardiomegaly. Mediastinal and hilar contours are within normal limits. Bony thorax no acute abnormality. Impression: CHF with superimposed probable pneumonia Reviewed, dictated and finalized at location A. Impression: CHF with superimposed probable pneumonia
--- OUTSIDE RECORDS SUMMARY | 2025-04-30 15:45 | XMS_ITS | Clinical Summary ---
Author Organization [facility] Address [address] [place] [address] Care Team Providers Care Jewel Inspector Name Role Phone Praveena Luna MD Primary Care Provider [phone] Allergies No known active allergies Medications calcium [...] Encounters Date Type Department Care Team Description 04/12/2025 Scan [facility] Scanned, Doc [facility] 04/09/2025 Scan [facility] Scanned, Doc Med Group 03/27/2025 Scan [facility] Scanned, Doc Med Group 03/22/2025 Scan [facility] Scanned, Doc [facility] Procedure (SCAN) from Last 3 Months Immunizations Immunization Administration Dates Next Due Fluzone Adult - >Age 3 (Pref illed Syringe) 03/19/2020(Deferred: Patient Refused) Fluzone High Dose - >Age 65 (Prefilled Syringe) 06/12/2022 MODERNA COVID-19 (12+) MRNA, LNP-S, PF, 100 MCG/ 0.5 ML DOSE 07/01/2021,12/04/2020,11/06/2020 MODERNA COVID-19 (ALGEBRAIST MARYAN MIRANDA), MRNA, LNP-S, PF, 50 MCG/ [...] Description 06/08/2025 8:40 AM CDT Office Visit [facility] Family & Internal Medicine - [address] [phone] [place] [id number] [facility] [place] [address] Health Maintenance Due Date Last Done Comments Zoster Vaccines (1 of 2) 11/07/2001 Annual Medicare Wellness Visit 11/07/2016 Dexa Scan (General) 11/07/2016 Pneumococcal Vaccine: 50+ Years (2 of 2 - PPSV23) 05/14/2020 03/19/2020 Mammogram Screening 07/29/2020 07/29/2018, 07/29/2018, 07/29/2018, Additional history exists DTaP, Tdap and Td Vaccines (2 - Td or Tdap) 09/08/2022 09/08/2012 COVID-19 Vaccine ( season) 2025 06/12/2022, 11/20/2021, 07/01/2021, Additional history exists RSV Immunization or 60+ Years (1 - 1-dose 75+ series) 11/07/2026 Colorectal Cancer Screening Colonoscopy (10 Years) 03/21/2027 03/21/2022, 03/21/2022 Hepatitis C Completed 10/04/2014 PHQ-2 (Physician [place]) Completed 12/07/2024 Meningococcal B Vaccine Aged Out [...] GENERIC (SCAN ORDER) Routine 07/29/2018 12:48 PM CURING MACHINE OPERATOR HEPATITIS A,B,& C Routine 10/04/2014 9:0 0 AM CURING MACHINE OPERATOR from Last 3 Months or Most Recently Relevant to Health Maintenance Results * PROCEDURE GENERIC (SCAN ORDER) (03/22/2025) 03/22/2025 us Doc Med Group Scanned SCANNING Final Resu lt * MAMMOGRAM (07/29/2018 12:48 PM CURING MACHINE OPERATOR) Anatomical Region Laterality Modality Other us Documents Scanned SCANNING Final Result * HEPATITIS A,B,& C (10/04/2014 9:00 AM CURING MACHINE OPERATOR) HAV IGM NON-REACTI VE NR [facility] TO EPIC CONVERSION HEPATITIS B SURFACE AG NON-REACTI VE NR [facility] TO EPIC CONVERSION HEP B SURFACE AB NON-REACTI VE [facility] TO EPIC CONVERSION HEP B CORE TOTAL AB NON-REACTI VE NR [facility] TO EPIC CONVERSION HEPATITIS C AB NON-REACTI VE NR [facility] TO EPIC CONVERSION Comment: Result Comment: TESTING PERFORMED AT [facility], A MEMBER OF THE [facility]. 10/04/2014 9:00 AM CURING MACHINE OPERATOR 10/04/2014 9:00 AM CURING MACHINE OPERATOR Narrative [facility] TO EPIC CONVERSION - 10/04/2014 5:21 PM CURING MACHINE OPERATOR Result Communication: Call patient with results us Christofer Okeefe MD LABORATORY Final Re sult [facility] TO EPIC CONVERSION from Last 3 Months or Most Recently Relevant to Health Maintenance Insurance MEDICARE AET MEDICARE Care Teams Jewel Inspector Relationship Specialty [place] [id number] [place] [id number] PCP - General FAMILY PRACTICE 10/03/22
--- OUTSIDE RECORDS SUMMARY | 2025-04-30 15:45 | XMS_ITS | Encounter Summary ---
Author Organization [facility] Address [facility] [place] [address] Care Team Providers Care Associate Sales Representative Name Role Phone Christofer Okeefe MD Primary Care Provider U Praveena Grace MD Primary Care Provider [phone] Encounter Details Date Type Department Care Team (Latest Contact Info) Description 06/22/2018 Abstract [facility] Medical Group Lina Moreno MD Social History [...] Description 06/08/2025 8:40 AM CDT Office Visit [facility] Medical Group Family & Internal Medicine [facility] [address] [place] [phone] [place] [address] [facility] [address] [place] [id number] documented as of this encounter Visit Diagnoses Not on filedocumented in this encounter Care Teams Associate Sales Representative Relationship Specialty Start Date End Date Christofer Okeefe MD PCP - General 03/04/13 10/02/22 [place] [id number] [address] [place] [id number] PCP - General FAMILY PRACTICE 10/03/22 documented as of this encounter
[2025-04-30 15:57] VITALS: BP 112/69; PULSE 58; RESP 18; TEMP 36.9; O2SAT 97
--- NOTE | 2025-04-30 16:03 | ECG_ITS ---
Test Date: 2025-04-30 16:10:59 Measurements Intervals Zeigler Rate: 54 P: 22 UT: 183 QRS: -35 QRSD: 102 T: -8 QT: 447 QTc: 425 Interpretive Statements SINUS BRADYCARDIA MODERATE VOLTAGE CRITERIA FOR LVH, CONSIDER NORMAL VARIANT [MEETS CRITERIA IN ONE OF: R(aVL), S(V1), R(V5), R(V5/V6)+S(V1)] INFERIOR MYOCARDIAL INFARCTION , OF INDETERMINATE AGE [40+ ms Q WAVE AND/OR ST/T ABNORMALITY IN II/aVF] ANTEROSEPTAL MYOCARDIAL INFARCTION , PROBABLY RECENT [40+ ms Q WAVE IN V1-V4] ACUTE TX ABNORMAL ECG Compared to ECG 04/10/2025 04:41:36 Myocardial infarct finding now present Sinus rhythm no longer present Left-axis deviation no longer present Electronically Signed On 05-01-2025 07:48:41 CDT by Hayes Ortiz M.D.
--- NOTE | 2025-04-30 16:54 | ED.SOB ---
HPI - SOB/Dyspnea General Chief Complaint: Shortness of Breath/Dyspnea <Katherine Guadarrama PA-C - Last Filed: 04/30/25 21:29> Stated Complaint: SOB, leg swelling <SOO Duenas Last Filed: 04/30/25 21:29> Time Seen by Provider: 04/30/25 16:49 <Katherine Guadarrama PA-C - Last Filed: 04/30/25 21:29> Source: patient and old records reviewed <Katherine Guadarrama PA-C - Last Filed: 04/30/25 21:29> Mode of arrival: ambulatory <SOO Duenas Last Filed: 04/30/25 21:29> Limitations: no limitations <SOO Duenas Last Filed: 04/30/25 21:29> History of Present Illness HPI Narrative: Patient is a 74-year-old female who presents the ED with report of shortness of breath. Patient reports she had a STEMI on 03/22/25. She underwent cardiac catheterization at that time and had 2 stents placed in her LAD. Was found to have another 70% blockage which is being medically managed. Sees Dr. Nguyen. Reports over last couple of days she has been having increased difficulty breathing. Feeling short of breath, worse with exertion, feels very heavy breathing. Reports having intermittent swelling in her lower extremities. Is on Lasix 20 mg daily and has been taking this as directed. She denies known history of CHF. Also reports recent productive cough. Denies chest pain, fevers. Patient is on Eliquis and Plavix. <SOO Duenas Last Filed: 04/30/25 21:29> Related Data Allergies/Adverse Reactions: Allergies Allergy/AdvReac Type Severity Reaction Status Date / Time No Known Allergies Allergy Unverified 03/22/25 15:08 <SOO Duenas Last Filed: 04/30/25 21:29> Review of Systems Review of Systems: All systems reviewed & are unremarkable except as noted in HPI. <SOO Duenas Last Filed: 04/30/25 21:29> All systems reviewed & are unremarkable except as noted in HPI and below <Katherine Guadarrama PA-C - Last Filed: 04/30/25 21:29> [facility] Past Medical History Medical History: Medical History Tobacco abuse Quit smoking when she had her STEMI 03/22/[address] elevation (STEMI) myocardial infarction (03/22/25) Ischemic cardiomyopathy Hypertension <Katherine Guadarrama PA-C - Last Filed: 04/30/25 21:29> Surgical History Surgical History: Surgical History H/O cervical spine surgery X2 History of coronary artery stent placement (03/22/25) LAD is stent x2 <Katherine Guadarrama PA-C - Last Filed: 04/30/25 21:29> Social History Social History: Social History Social History: Code status: Full code Surrogate decision maker: Non Smoking packs per day: 0.33 Smoking cigarettes per day: 6.6 Years smoked: 13 Smoking pack-years: 4.29 Smoking status: Former smoker Tobacco type: cigarettes Second hand tobacco smoke exposure: No Alcohol intake: former Substance use: never Substance use type: does not use Lack of Transportation: No Lack of Food: Never True Current Housing: I Have Housing Concerned About Future Housing: No Difficulty Paying Gas/Electric Bills: No Difficulty Paying for Meds: No Currently Unemployed: No Education: High School Diploma/GED Difficulty w/ Childcare or Family Care: No Spiritual care concerns: No <Katherine Guadarrama PA-C - Last Filed: 04/30/25 21:29> Exam Narrative: GENERAL: Elderly, thin, non-toxic, in no acute distress. HEAD: Normocephalic, atraumatic. RESPIRATORY: Airway patent, respirations nonlabored. Decreased lung sounds in bases, coarse lung sounds, scattered rhonchi. No wheezing. CARDIOVASCULAR: Regular rate and rhythm without murmurs, rubs, or gallops. MUSCULOSKELETAL: Moves all extremities. No gross deformities. Trace peripheral edema. SKIN: Warm, dry, normal color. NEURO: A&O X3. Speech clear. Cranial nerves II-XII grossly intact. Steady gait. No ataxic movements. PSYCHIATRIC: Appropriate mood and affect. Normal interaction. <Katherine Guadarrama PA-C - Last Filed: 04/30/25 21:29> Course PAINT DIPPER/PA Physician Supervision This visit was performed by both a physician and an APC. I performed all aspects of the MDM as documented. <Frank Ledesma MD - Last Filed: 04/30/25 20:05> Vital Signs Vital signs: Vital Signs Temperature 98.5 F 04/30/25 15:57 Pulse Rate 58 L 04/30/25 15:57 Respiratory Rate 18 04/30/25 15:57 Blood Pressure 112/69 04/30/25 15:57 Pulse Oximetry 97 04/30/25 15:57 Oxygen Delivery Room Air 04/30/25 15:57 Temperature 98.5 F 04/30/25 15:57 Pulse Rate 63 04/30/25 20:53 Respiratory Rate 22 H 04/30/25 20:53 Blood Pressure 117/81 04/30/25 20:53 Pulse Oximetry 98 04/30/25 20:53 Oxygen Delivery Room Air 04/30/25 16:56 <Katherine Guadarrama PA-C - Last Filed: 04/30/25 21:29> Vital Signs Temperature 98.5 F 04/30/25 15:57 Pulse Rate 58 L 04/30/25 15:57 Respiratory Rate 18 04/30/25 15:57 Blood Pressure 112/69 04/30/25 15:57 Pulse Oximetry 97 04/30/25 15:57 Oxygen Delivery Room Air 04/30/25 15:57 Temperature 98.5 F 04/30/25 15:57 Pulse Rate 63 04/30/25 20:53 Respiratory Rate 22 H 04/30/25 20:53 Blood Pressure 117/81 04/30/25 20:53 Pulse Oximetry 98 04/30/25 20:53 Oxygen Delivery Room Air 04/30/25 16:56 <Frank Ledesma MD - Last Filed: 04/30/25 20:05> MDM - SOB/Dyspnea MDM Narrative Medical decision making narrative: Patient presented to ED with increased shortness of breath, productive cough, swelling of lower extremities. Patient with history of recent STEMI, received to stents. Denying chest pain at this time. VSS upon arrival. Patient in NAD. EKG with sinus bradycardia, some nonspecific ST changes/borderline elevation in V1/2/3, though appears similar to previous EKGs stent placement. STEMI was much more pronounced elevation on EKG. No acute stemi today. Baseline troponin mildly elevated at 0.046. Possibly still downtrending from recent admission. Will continue to trend. Denies active CP at this time[place] [address]. Previous echo last month showing EF 25-30%. Chest x-ray with evidence of CHF and likely superimposed pneumonia. Consistent with clinical picture. Will treat for such. Given dose of 40 mg IV Lasix, blood cultures obtained. Started Rocephin and azithromycin for pneumonia. Viral swabs are negative. Patient will be admitted for further diuresis, cardiac evaluation. Discussed case with Dr. Rendon, hospitalist, accepted patient for admission. Patient and family in agreement with plan. <Katherine Guadarrama PA-C - Last Filed: 04/30/25 21:29> Medical Records Attestation: I reviewed the patient's medical records. <Katherine Guadarrama PA-C - Last Filed: 04/30/25 21:29> Lab Data Attestation: I reviewed the patient's lab results. <Katherine Guadarrama PA-C - Last Filed: 04/30/25 21:29> Result diagrams: 04/30/25 17:12 04/30/25 17:12 <Katherine Guadarrama PA-C - Last Filed: 04/30/25 21:29> Labs: Lab Results 04/30/25 04/30/25 Range/Units 17:12 17:58 WBC 4.6 (4.5-10.0) K/mm3 RBC 3.56 L (4.2-5.4) M/mm3 Hgb 11.3 L (12.0-15.0) g/dL Hct 35.2 L (37.0-47.0) % MCV 98.9 (80-100) fl MCH 31.7 (26-34) pg MCHC 32.1 (32-36) g/dl RDW 15.9 H (11.5-14.5) % Plt Count 167 (150-375) k/mm3 MPV 11.6 H (7.4-10.4) fl Immature Gran % (Auto) 0.4 (0-0.5) % Neut % (Auto) 77.8 H (45.5-73.1) % Lymph % (Auto) 11.4 L (18.3-44.2) % [place] % (Auto) 9.0 H (2.6-8.5) % Eos % (Auto) 0.7 (0-4.4) % Baso % (Auto) 0.7 (0.2-1.2) % Lymph # (Auto) 0.52 L (0.9-3.2) K/mm3 [place] # (Auto) 0.4 (0.1-0.6) K/mm3 Eos # (Auto) 0.0 (0-0.3) K/mm3 Baso # (Auto) 0.0 (0.0-0.1) K/mm3 Abs Immat Gran (auto) 0.02 (0.00-0.031) K/mm3 Absolute Neuts (auto) 3.6 (1.3-6.7) K/mm3 Absolute Nucleated RBC 0.000 (0.0-0.012) K/mm3 Nucleated RBC % 0.0 (0.0-0.2) % PT 16.4 H (11.1-14.7) Seconds INR 1.3 APTT 28.3 (22.3-36.8) Seconds Sodium 141 (137-145) mmol/L Potassium 3.8 (3.4-5.0) mmol/L Chloride 108 H (98-107) mmol/L Carbon Dioxide 24 (22-30) mmol/L Anion Gap 9 (4-12) mmol/L BUN 41 H (7-17) mg/dL Creatinine 1.24 H (0.7-1.0) mg/dL Estim Creat Clear Calc 30 ml/min Estimated GFR 42 L (59 - ) Glucose 108 (65-110) mg/dL Calcium 9.4 (8.4-10.2) mg/dL Total Bilirubin 0.9 (0.2-1.3) mg/dL AST 33 (14-36) U/L ALT 36 H (6-35) U/L Alkaline Phosphatase 101 (38-126) U/L Troponin I 0.046 H* (0.000-0.034) ng/mL NT-Pro-B Natriuret Pep 40729 H (19.9-100) pg/mL Total Protein 5.9 L (6.3-8.2) g/dL Albumin 3.8 (3.5-5.1) g/dL Influenza A (RT-PCR) Negative (Negative) Influenza B (RT-PCR) Negative (Negative) RSV (RT-PCR) Negative (Negative) SARS-CoV-2 RNA (RT-PCR) Negative (Negative) <Katherine Guadarrama PA-C - Last Filed: 04/30/25 21:29> Lab Results 04/30/25 04/30/25 Range/Units 17:12 17:58 WBC 4.6 (4.5-10.0) K/mm3 RBC 3.56 L (4.2-5.4) M/mm3 Hgb 11.3 L (12.0-15.0) g/dL Hct 35.2 L (37.0-47.0) % MCV 98.9 (80-100) fl MCH 31.7 (26-34) pg MCHC 32.1 (32-36) g/dl RDW 15.9 H (11.5-14.5) % Plt Count 167 (150-375) k/mm3 MPV 11.6 H (7.4-10.4) fl Immature Gran % (Auto) 0.4 (0-0.5) % Neut % (Auto) 77.8 H (45.5-73.1) % Lymph % (Auto) 11.4 L (18.3-44.2) % [place] % (Auto) 9.0 H (2.6-8.5) % Eos % (Auto) 0.7 (0-4.4) % Baso % (Auto) 0.7 (0.2-1.2) % Lymph # (Auto) 0.52 L (0.9-3.2) K/mm3 [place] # (Auto) 0.4 (0.1-0.6) K/mm3 Eos # (Auto) 0.0 (0-0.3) K/mm3 Baso # (Auto) 0.0 (0.0-0.1) K/mm3 Abs Immat Gran (auto) 0.02 (0.00-0.031) K/mm3 Absolute Neuts (auto) 3.6 (1.3-6.7) K/mm3 Absolute Nucleated RBC 0.000 (0.0-0.012) K/mm3 Nucleated RBC % 0.0 (0.0-0.2) % PT 16.4 H (11.1-14.7) Seconds INR 1.3 APTT 28.3 (22.3-36.8) Seconds Sodium 141 (137-145) mmol/L Potassium 3.8 (3.4-5.0) mmol/L Chloride 108 H (98-107) mmol/L Carbon Dioxide 24 (22-30) mmol/L Anion Gap 9 (4-12) mmol/L BUN 41 H (7-17) mg/dL Creatinine 1.24 H (0.7-1.0) mg/dL Estim Creat Clear Calc 30 ml/min Estimated GFR 42 L (59 - ) Glucose 108 (65-110) mg/dL Calcium 9.4 (8.4-10.2) mg/dL Total Bilirubin 0.9 (0.2-1.3) mg/dL AST 33 (14-36) U/L ALT 36 H (6-35) U/L Alkaline Phosphatase 101 (38-126) U/L Troponin I 0.046 H* (0.000-0.034) ng/mL NT-Pro-B Natriuret Pep 24570 H (19.9-100) pg/mL Total Protein 5.9 L (6.3-8.2) g/dL Albumin 3.8 (3.5-5.1) g/dL Influenza A (RT-PCR) Negative (Negative) Influenza B (RT-PCR) Negative (Negative) RSV (RT-PCR) Negative (Negative) SARS-CoV-2 RNA (RT-PCR) Negative (Negative) <Frank Ledesma MD - Last Filed: 04/30/25 20:05> Imaging Data Attestation: I personally reviewed and interpreted this imaging study as follows: <Katherine Guadarrama PA-C - Last Filed: 04/30/25 21:29> Radiologist's impression: ITS Impressions Chest X-Ray 04/30/25 17:07 Impression: CHF with superimposed probable pneumonia <SOO Duenas Last Filed: 04/30/25 21:29> ECG Data EKG #1: Attestation: I personally reviewed and interpreted this ECG as follows: <SOO Duenas Last Filed: 04/30/25 21:29> ECG completion date: 04/30/25 <SOO Duenas Last Filed: 04/30/25 21:29> ECG completion time: 16:10 <SOO Duenas Last Filed: 04/30/25 21:29> Prior ECG tracings: available for review <SOO Duenas Last Filed: 04/30/25 21:29> EKG Interpretation: bradycardia (54), sinus rhythm and non-specific ST changes (slight ST elevation of anterior leads, appears similar to 04/10) <Katherine Guadarrama PA-C - Last Filed: 04/30/25 21:29> Discharge Plan Discharge Clinical Impression: Elevated troponin Acute CHF (congestive heart failure) Qualifiers: Heart failure type: unspecified Qualified Code(s): I50.9 - Heart failure, unspecified Pneumonia Qualifiers: Pneumonia type: due to unspecified organism Laterality: unspecified laterality Lung location: unspecified part of lung Qualified Code(s): J18.9 - Pneumonia, unspecified organism <Katherine Guadarrama PA-C - Last Filed: 04/30/25 21:29> Patient Disposition: Still a Patient <SOO Duenas Last Filed: 04/30/25 21:29> Condition: Stable <SOO Duenas Last Filed: 04/30/25 21:29> Patient Language: Icelandic <SOO Duenas Last Filed: 04/30/25 21:29> Prescriptions: No Action amiodarone [Pacerone] 200 mg Tablet 200 mg PO DAILY@0800 Qty: 30 0RF metoprolol succinate [Toprol XL] 25 mg Tablet Extended Release 24 Hr 25 mg PO QAM Qty: 30 0RF furosemide [Lasix] 40 mg tablet 20 mg PO DAILY Qty: 10 0RF atorvastatin 40 mg Tablet 80 mg PO HS Qty: 180 3RF varenicline tartrate [Chantix Starting Month Box] 0.5 mg (11)- 1 mg (42) tablets,dose pack See Rx Instructions .ROUTE .COMPLEX Qty: 53 0RF Rx Instructions: orally per package directions clopidogrel 75 mg Tablet 75 mg PO QAM 30 Days Qty: 30 11RF aspirin 81 mg Tablet,Delayed Release (Dr/Ec) 81 mg PO QAM 30 Days Qty: 30 11RF sacubitril-valsartan [Entresto] 24-26 mg Tablet 1 tab PO Q12HR 30 Days Qty: 60 0RF Eliquis 5 mg tablet 5 mg PO BID Qty: 60 3RF <Katherine Guadarrama PA-C - Last Filed: 04/30/25 21:29> Follow-up/Referrals: Jeremy,MD Praveena [Primary Care Provider, Unknown] <Katherine Guadarrama PA-C - Last Filed: 04/30/25 21:29>
[2025-04-30 16:56] VITALS: PULSE 57; O2SAT 94
[2025-04-30 17:19] LABS: Hematocrit 35.2 % (37.0-47.0); Hemoglobin 11.3 g/dL (12.0-15.0); Immature Granulocyte Percent A 0.4 % (0-0.5); Lymphocytes Absolute Auto 0.52 K/mm3 (0.9-3.2); Mean Corpuscular HGB Conc 32.1 g/dl (32-36); Mean Corpuscular Hemoglobin 31.7 pg (26-34); Mean Corpuscular Volume 98.9 fl (80-100); Nucleated Red Blood Cells Absolute Auto 0.000 K/mm3 (0.0-0.012); Nucleated Red Blood Cells Perc 0.0 % (0.0-0.2); Platelet Count Result 167 k/mm3 (150-375); Red Blood Count 3.56 M/mm3 (4.2-5.4); White Blood Count 4.6 K/mm3 (4.5-10.0)
[2025-04-30 17:30] LABS: Alanine Aminotransferase 36 U/L (6-35); Albumin Level 3.8 g/dL (3.5-5.1); Alkaline Phosphatase 101 U/L (38-126); Anion Gap 9 mmol/L (4-12); Aspartate Amino Transferase 33 U/L (14-36); Bilirubin,Total 0.9 mg/dL (0.2-1.3); Blood Urea Nitrogen 41 mg/dL (7-17); Calcium 9.4 mg/dL (8.4-10.2); Carbon Dioxide 24 mmol/L (22-30); Chloride 108 mmol/L (98-107); Estimated CRCL calculation 30 ml/min; Estimated Glomerular Filt Rate 42; Glucose 108 mg/dL (65-110); INR 1.3; Potassium 3.8 mmol/L (3.4-5.0); Prothrombin Time 16.4 Seconds (11.1-14.7); Sodium 141 mmol/L (137-145); Total Protein 5.9 g/dL (6.3-8.2)
[2025-04-30 17:31] LABS: Partial Thromboplastin Time 28.3 Seconds (22.3-36.8)
[2025-04-30 17:38] LABS: NT Pro B Type Natriuretic Pept 18600 pg/mL (19.9-100)
[2025-04-30 17:42] LABS: Troponin I 0.046 ng/mL (0.000-0.034)
--- OUTSIDE RECORDS SUMMARY | 2025-04-30 17:43 | XMS_ITS | Clinical Summary ---
Author Organization [facility] Address [address] [place] [address] Care Team Providers Care Pin Machine Operator Name Role Phone Praveena Luna MD Primary Care Provider [phone] Allergies No known active allergies Medications calcium [...] MCG/ 0.5 ML DOSE 07/01/2021,12/04/2020,11/06/2020 MODERNA COVID-19 ([employer] MARYAN MIRANDA), MRNA, LNP-S, PF, 50 MCG/ [...] Description 06/08/2025 8:40 AM CDT Office Visit [facility] Family & Internal Medicine - [address] [id number] [place] [address] [facility]. [address] [place] [address] Health Maintenance Due Date Last [...] 03/21/2022 Hepatitis C Completed 10/04/2014 PHQ-2 (Physician [place]) Completed 12/07/2024 Meningococcal B Vaccine Aged Out [...] GENERIC (SCAN ORDER) Routine 07/29/2018 12:48 PM TOBACCO WAREHOUSE AGENT HEPATITIS A,B,& C Routine 10/04/2014 9:0 0 AM TOBACCO WAREHOUSE AGENT from Last 3 Months or Most Recently Relevant to Health Maintenance Results * PROCEDURE GENERIC (SCAN ORDER) (03/22/2025) 03/22/2025 us Doc Med [facility] Scanned SCANNING Final Resu lt * MAMMOGRAM (07/29/2018 12:48 PM TOBACCO WAREHOUSE AGENT) Anatomical Region Laterality Modality Other us Documents Scanned SCANNING Final Result * HEPATITIS A,B,& C (10/04/2014 9:00 AM TOBACCO WAREHOUSE AGENT) HAV IGM NON-REACTI VE NR [facility] TO EPIC CONVERSION HEPATITIS B SURFACE AG NON-REACTI VE NR [facility] TO EPIC CONVERSION HEP B SURFACE AB NON-REACTI VE [facility] TO EPIC CONVERSION HEP B CORE TOTAL AB NON-REACTI VE NR [facility] TO EPIC CONVERSION HEPATITIS C AB NON-REACTI VE NR [facility] TO EPIC CONVERSION Comment: Result Comment: TESTING PERFORMED AT [facility], A MEMBER OF THE [facility]. 10/04/2014 9:00 AM TOBACCO WAREHOUSE AGENT 10/04/2014 9:00 AM TOBACCO WAREHOUSE AGENT Narrative [facility] TO EPIC CONVERSION - 10/04/2014 5:21 PM TOBACCO WAREHOUSE AGENT Result Communication: Call patient with results us Christofer Okeefe MD LABORATORY Final Re sult [facility] TO EPIC CONVERSION from Last 3 Months or Most Recently Relevant to Health Maintenance Insurance MEDICARE AET MEDICARE Care Teams Pin Machine Operator Relationship Specialty [place] [id number] [place] [id number] PCP - General FAMILY PRACTICE 10/03/22
--- OUTSIDE RECORDS SUMMARY | 2025-04-30 17:43 | XMS_ITS | Encounter Summary ---
Author Organization [facility] Address [facility] [place] [address] Care Team Providers Care Paper Deliverer Name Role Phone Christofer Okeefe MD Primary Care Provider U Praveena Grace MD Primary Care Provider [phone] Encounter Details Date Type Department Care Team (Latest Contact Info) Description 06/22/2018 Abstract [facility] Lina Moreno MD [...] Description 06/08/2025 8:40 AM CDT Office Visit [facility] Family & Internal Medicine [facility] [id number] [place] [id number] [place] [address] [facility] [place] [phone] documented as of this encounter Visit Diagnoses Not on filedocumented in this encounter Care Teams Paper Deliverer Relationship Specialty Start Date End Date Christofer Oekefe MD PCP - General 03/04/13 10/02/22 [place] [address] [address] [place] [id number] PCP - General FAMILY PRACTICE 10/03/22 documented as of this encounter
--- OUTSIDE RECORDS SUMMARY | 2025-04-30 17:43 | XMS_ITS | Encounter Summary ---
Author Organization [facility] Address [facility] [place] [address] Care Team Providers Care Online Merchandising Specialist Name Role Phone Christofer Okeefe MD Primary Care Provider U Praveena Grace MD Primary Care Provider [phone] Encounter Details Date Type Department Care Team (Late st Contact Info) Description 12/14/2012 Abstract [facility] CONVERSION [address] [facility] [place] [address] , Generic MD Nelson Social History Tobacco [...] Description 06/08/2025 8:40 AM CDT Office Visit [facility] Family & Internal Medicine [facility] [address] [place] [address] [place] [address] [address] [place] [id number] documented as of this encounter Visit Diagnoses Not on filedocumented in this encounter Care Teams Online Merchandising Specialist Relationship Specialty Start Date End Date Christofer Okeefe MD PCP - General 03/04/13 10/02/22 [place] [address] [address] [place] [address] PCP - General FAMILY PRACTICE 10/03/22 documented as of this encounter
[2025-04-30 18:40] LABS: Influenza A QL RT-PCR Negative (Negative); Influenza B QL RT-PCR Negative (Negative); RSV RNA, RT-PCR Negative (Negative); SARS-CoV-2 RNA PCR Negative (Negative)
[2025-04-30 18:58] VITALS: BP 123/79; PULSE 57; RESP 19; O2SAT 97
[2025-04-30] MEDS: ASPIRIN 81 MG CHEWABLE TABLET 324 MG PO (20:34)
[2025-04-30] MEDS: cefTRIAXone 1 GM in SODIUM CHLORIDE 0.9% IV 50 ML 100 ML IVPB (20:34)
[2025-04-30] MEDS: FUROSEMIDE INJ 40 MG/4 ML VIAL IV PUSH (20:34)
[2025-04-30 20:53] VITALS: BP 117/81; PULSE 63; RESP 22; O2SAT 98
[2025-04-30] MEDS: AZITHROMYCIN IV 500 MG in SODIUM CHLORIDE 0.9% IV 250 ML IVPB (21:00)
--- NOTE | 2025-04-30 22:00 | ADMGEN ---
This patient, Patience Marroquin, was admitted to Medical Room 345-. Patient/family oriented to hospital policies and general routines including ID bracelet, bed and alarms, visiting hours, pain management, procedures, bathroom and other care routines, personal items, smoking policy, room service/diet, and visiting hours. Information on how to activate the Rapid Response Team has been discussed. Patient/Family are encouraged to report perceived risks to care and to ask questions if they do not understand what they are told or what they should do.
[2025-04-30 22:26] VITALS: BMI 21.7
[2025-04-30 23:49] VITALS: BP 90/55; PULSE 66; RESP 20; TEMP 36.6; O2SAT 95
[2025-05-01] VITALS (12 sets, daily range): BP systolic 100–116; BP diastolic 57–79; PULSE 56–68; RESP 18–22; TEMP 36.4–37; O2SAT 93–95; BMI 21.9
--- NOTE | 2025-05-01 | ECHO_ITS ---
Patient Info Name: Patience Marroquin Age: 74 years : 1950 Gender: Female Ht: 63 in Wt: 123 lbs BSA: 1.58 m2 HR: 62 bpm BP: 116 / 72 mmHg Technical Quality: Good Exam Date: 05/01/2025 3:28 PM Patient Status: I Admit Date: 05/01/2025 Exam Type: CA echo limited w contrast Limited two-dimensional transthoracic echocardiogram is performed with contrast. Staff Referring Physician: Frank Ledesma MD Solar Systems Designer: Willow Santizo Attending Provider: Dora Rendon DO Contrast/Agitated Saline Contrast/Ag. Saline: Definity Amount: 2.00 ml Existing IV Access: Yes IV Access Condition: patent with no signs of infiltration Summary 1. Left ventricular chamber dimension is severely enlarged. Akinetic anteroseptum, mid and basal inferoseprum, apical and anterior miramontes. EF 30-35%. 2. Left atrial chamber dimension is severely enlarged. 3. Right ventricle systolic function IS normal. 4. There is mild mitral valve calcification. 5. There is severe mitral valve regurgitation. 6. There is mild tricuspid valve regurgitation. 7. Mild pulmonary hypertension, estimated pulmonary arterial systolic pressure is 39 mmHg. Left Ventricle Left ventricular chamber dimension is severely enlarged. Akinetic anteroseptum, mid and basal inferoseprum, apical and anterior miramontes. EF 30-35%. Right Ventricle Right ventricle systolic function IS normal. Left Atria Left atrial chamber dimension is severely enlarged. Right Atria Right atrial chamber dimension is normal. Aortic Valve The aortic valve is trileaflet. There is mild aortic valve calcification. Mitral Valve There is severe mitral valve regurgitation. There is mild mitral valve calcification. Tricuspid Valve There is mild tricuspid valve regurgitation. Mild pulmonary hypertension, estimated pulmonary arterial systolic pressure is 39 mmHg. Pericardium/Pleural The pericardium appears normal. There is no pericardial effusion. Inferior Vena Cava Normal inferior vena cava with >50% collapse upon inspiration consistent with normal right atrial pressure, 5 mmHg. Aorta The aortic root size at the sinus of Valsalva is normal. Tricuspid Valve Name Value Normal TV Regurgitation Doppler TR Peak Velocity 291 cm/s TR Peak Gradient 34 mmHg Estimated PAP/RSVP RA Pressure 5 mmHg <=5 PA Systolic Pressure 39 mmHg <36 RV Systolic Pressure 39 mmHg <36 Ventricles Name Value Normal LV Fractional Shortening/Ejection Fraction 2D/MM LV Diastolic Volume (4C MOD) 183 ml LV EF (4C MOD) 38 % LV Diastolic Volume (2C MOD) 172 ml LV EF (2C MOD) 43 % LV Diastolic Volume (BP MOD) 185 ml 46-106 LV Diastolic Volume Index (BP MOD) 117 ml/m2 29-61 LV Systolic Volume (BP MOD) 108 ml 14-42 LV Systolic Volume Index (BP MOD) 69 ml/m2 8-24 LV EF (BP MOD) 41 % 54-74 LV Diastolic Length (4C) 8.9 cm LV Systolic Length (4C) 7.4 cm LV Stroke Volume (4C MOD) 69 ml Report Signatures Amended by Harris Arenas MD on 05/01/2025 09:04 PM
[2025-05-01 00:03] LABS: Troponin I 0.067 ng/mL (0.000-0.034)
--- NOTE | 2025-05-01 02:18 | P.HP_ITS ---
H&P: HPI History of Present Illness Date/Time: 05/01/25 00:30 Chief Complaint: Shortness of breath and swelling of bilateral legs Narrative: Extremely anxious but pleasant 74-year-old female with a past medical history of tobacco abuse with recent tobacco cessation, recent STEMI 03/22/2025 with 2 drug-eluting stents placed to the LAD and subsequent ischemic cardiomyopathy with EF of, 25-30% and complicated by post ischemia paroxysmal atrial fibrillation who presented to the ER with bilateral lower extremity swelling and increasing shortness of breath. She denies increased dyspnea on exertion but has noticed significant orthopnea. She reports that is been difficult for to sleep due to orthopnea. She had been instructed by the nurse practitioner from the [employer] service to decrease her Lasix to every other day. But the patient stated that when she did try to do that she became more short of breath. Subsequently she has continued her daily 20 mg of Lasix unchanged. She has been diligent about avoiding extra salt and reading food labels. She reports that she has lost about a lb since her DE in March because food just does not taste right. Despite this she has had some increased abdominal distension. She has been having normal bowel movements. She has also cut back on a large number of foods and she feels like she cannot make food that is palatable due to dietary restrictions. She even reports that she is avoiding cheese, all continent, and breading on food. She has not been eating any canned vegetables, soups or frozen meals. She denies having any chest pain. She reports that her DE symptoms involved squeezing sensation in her throat and diaphoresis she has not had recurrence of these symptoms either. She reports that she has had an intermittent cough since her DE. Cough seems to be worse when she lays down. She thinks that part this may be due to sinuses in postnasal drip. But it sounds like the cough may also be cardiac in nature because it worsened just prior to her last hospitalization for CHF exacerbation. She denies any fevers or chills. She denies any recent ill contacts. She is frustrated in anxious to get back to her very active lifestyle that she had previously. She states that she quit smoking when she had her DE. She has not taken the Chantix that was prescribed because she is afraid of side effects. But she has no intention of starting smoking again. Review of Systems 2 Review of Systems: 12 systems were reviewed with pertinent positives and negatives per HPI. Except as documented in the HPI, all other systems were reviewed and are negative. [facility] Past Medical History Medical History (Updated 05/01/25 @ 07:10 by Dora Rendon DO) Paroxysmal atrial fibrillation Post cardiac catheterization Tobacco abuse Quit smoking when she had her STEMI 03/22/[address] elevation (STEMI) myocardial infarction (03/22/25) Ischemic cardiomyopathy Hypertension Surgical History Surgical History H/O cervical spine surgery X2 History of coronary artery stent placement (03/22/25) LAD is stent x2 Social History Social History Social History: Code status: Full code Surrogate decision maker: Daughter Smoking packs per day: 0.33 Smoking cigarettes per day: 6.6 Years smoked: 13 Smoking pack-years: 4.29 Smoking status: Former smoker Tobacco type: cigarettes Second hand tobacco smoke exposure: No Alcohol intake: never Substance use: never Substance use type: does not use Lack of Transportation: No Lack of Food: Never True Current Housing: I Have Housing Concerned About Future Housing: No Difficulty Paying Gas/Electric Bills: No Difficulty Paying for Meds: YES Currently Unemployed: No Education: High School Diploma/GED Difficulty w/ Childcare or Family Care: No Living arrangements: alone Occupation/Education: retired Additional occupation/education comments: Retired dedicated intermodal truck driver Spiritual care concerns: No Meds Home Medications and Allergies Home Medications ?Medication ?Instructions ?Recorded ?Confirmed ?Type atorvastatin 40 mg tablet 80 mg (2 x 40 mg) PO HS #180 tabs 03/23/25 04/30/25 Rx varenicline tartrate 0.5 mg (11)-1 See Rx Instructions PO .COMPLEX 03/23/25 04/30/25 Rx mg (42) tablets in a dose pack #53 ea (Chantix Starting Month Box) apixaban 5 mg tablet (Eliquis) 5 mg PO BID #60 tabs 04/30/25 Rx clopidogrel 75 mg tablet 75 mg PO QAM 30 days #30 tab s 03/27/25 04/30/25 Rx sacubitril 24 mg-valsartan 26 mg 1 tab PO Q12HR 30 day s #60 tabs 03/27/25 04/30/25 Rx tablet (Entresto) amiodarone 200 mg tablet (Pacerone) 200 mg PO DAILY@08 00 #30 tabs 04/11/25 04/30/25 Rx furosemide 40 mg tablet (Lasix) 20 mg (1/2 x 40 mg) PO DAILY #10 04/11/25 04/30/25 Rx tabs metoprolol succinate 25 mg 25 mg PO QAM #30 tabs 04/1104/30/25 Rx tablet,extended release 24 hr (Toprol XL) Allergies Allergy/AdvReac Type Severity Reaction Status Date / Time No Known Allergies Allergy Unverified 03/22/25 15:08 Vital Signs Vital Signs - 24 hr 04/30/25 15:57 04/30/25 16:56 04/30/25 16:56 Temperature 98.5 F Pulse Rate 58 L 57 L Respiratory Rate 18 Blood Pressure 112/69 Pulse Oximetry 97 94 Oxygen Delivery Room Air Room Air 04/30/25 18:58 04/30/25 20:53 04/30/25 22:17 Temperature Pulse Rate 57 L 63 Respiratory Rate 19 22 H Blood Pressure 123/79 117/81 Pulse Oximetry 97 98 Oxygen Delivery Room Air 04/30/25 23:49 05/01/25 00:00 Temperature 97.8 F Pulse Rate 66 68 Respiratory Rate 20 Blood Pressure 90/55 L Pulse Oximetry 95 Oxygen Delivery Exam 2 Narrative: Weight 55.7 kg Const: Other: Anxious but no physical acute distress, appears older than stated age HENMT: Other: Mucous membranes are moist, no oral pharyngeal erythema, no scleral icterus, no conjunctival pallor Neck: Other: JVD noted, no lymphadenopathy Resp: Other: Crackles bilateral bases right greater than left Cardio: Other: Regular rate, regular rhythm, JVD noted, 2/6 systolic murmur GI: Other: Minimally distended, soft, nontender Skin: Other: Tanned, non jaundice Neuro: Other: Alert oriented, speech is clear, no facial asymmetry, no localizing neurologic deficits noted, normal gait Extrem: Other: Trace edema to bilateral ankles and feet, 5/5 management assistant strength bilateral Psych: Other: Markedly anxious but pleasant and cooperative, good judgment and insight H&P: Results Labs Labs: Laboratory Tests 04/30/25 17:12 04/30/25 17:12 04/30/25 04/30/25 04/30/25 17:12 17:58 23:26 WBC 4.6 RBC 3.56 L Hgb 11.3 L Hct 35.2 L MCV 98.9 MCH 31.7 MCHC 32.1 RDW 15.9 H Plt Count 167 MPV 11.6 H Immature Gran % (Auto) 0.4 Neut % (Auto) 77.8 H Lymph % (Auto) 11.4 L [place] % (Auto) 9.0 H Eos % (Auto) 0.7 Baso % (Auto) 0.7 Lymph # (Auto) 0.52 L [place] # (Auto) 0.4 Eos # (Auto) 0.0 Baso # (Auto) 0.0 Abs Immat Gran (auto) 0.02 Absolute Neuts (auto) 3.6 Absolute Nucleated RBC 0.000 Nucleated RBC % 0.0 PT 16.4 H INR 1.3 APTT 28.3 Sodium 141 Potassium 3.8 Chloride 108 H Carbon Dioxide 24 Anion Gap 9 BUN 41 H Creatinine 1.24 H Estim Creat Clear Calc 30 Estimated GFR 42 L Glucose 108 Calcium 9.4 Total Bilirubin 0.9 AST 33 ALT 36 H Alkaline Phosphatase 101 Troponin I 0.046 H* 0.067 H* D NT-Pro-B Natriuret Pep 76553 H Total Protein 5.9 L Albumin 3.8 Influenza A (RT-PCR) Negative Influenza B (RT-PCR) Negative RSV (RT-PCR) Negative SARS-CoV-2 RNA (RT-PCR) Negative Impressions Chest X-Ray 04/30/25 17:07 Impression: CHF with superimposed probable pneumonia EKG: Assessment and Plan Assessment and plan (1) Acute CHF (congestive heart failure): Qualifiers: Heart failure type: systolic Qualified Code(s): I50.21 - Acute systolic (congestive) heart failure Code(s): I50.9 - Heart failure, unspecified Status: Acute (2) Ischemic cardiomyopathy: Code(s): I25.5 - Ischemic cardiomyopathy Status: Acute (3) Elevated troponin: Code(s): R79.89 - Other specified abnormal findings of blood chemistry Status: Acute (4) Hypertension: Qualifiers: Hypertension type: primary hypertension Qualified Code(s): I10 - Essential (primary) hypertension Code(s): I10 - Essential (primary) hypertension Status: Acute Plan Patient has acute CHF exacerbation associated with ischemic cardiomyopathy with symptoms of orthopnea and and cough. Initially the patient was treated with dose of IV Lasix in the ER. Imaging suggested possible associated pneumonia him patient does report a small amount of mucus production and cough when she lays down. Again I think the cough is more due to orthopnea fluid overload given patient's reported symptoms. And that pneumonia is less likely. She is afebrile and does not have a white count. At this time will discontinue Rocephin and azithromycin. Will continue Lasix 40 mg IV b.i.d.. Unfortunately since the patient has been started on Lasix metoprolol and Entresto pulling or DE she has been having borderline softer blood pressures. Will need to monitor blood pressures closely in the setting. The patient does have elevated troponin which is trending upward mildly but this again is likely due to demand ischemia. Will continue patient on her home Eliquis, Plavix and statin therapy. Will consult Cardiology for further recommendations and adjustments in treatment therapy. Will continue home amiodarone. Patient is currently in sinus rhythm she be monitored on telemetry. Extensive time was spent at the bedside in direct conversation with the patient regarding her concerns in diet and providing reassurance that she will get back to more functional status when we find optimization of medications and following initiation of cardiac rehab. Patient has been admitted as observation status. MEDICAL DECISION MAKING NARRATIVE -Spoke with the ED provider in detail regarding patient's evaluation, workup and management -Patient seen and examined at bedside -Collaborated with patient's nurse at the bedside in detail and addressed all concerns -Labs, electrolytes, radiology, investigations and test results personally reviewed and interpreted unless otherwise specified -ED/Consult/Nursing/Ancilliary notes on the chart reviewed and appreciated -Spoke with patient at bedside and diagnosis and plan of care was discussed. All questions answered. Quality VTE Prophylaxis VTE prophylaxis: pharmacologic ordered (Continue home Eliquis) Hospitalist [facility] Advance Care Plan I have confirmed that the patient's Advanced Care Plan is present, code status is documented, or surrogate decision maker is listed in patient medical record.: Yes Medication Reconciliation I have utilized all available resources to obtain, update and review the patients current medications (includes all prescriptions, OTC, herbals, cannabis, and nutritional supplements).: Yes
[2025-05-01 02:50] LABS: Hematocrit 32.8 % (37.0-47.0); Hemoglobin 10.7 g/dL (12.0-15.0); Immature Granulocyte Percent A 0.7 % (0-0.5); Lymphocytes Absolute Auto 0.48 K/mm3 (0.9-3.2); Mean Corpuscular HGB Conc 32.6 g/dl (32-36); Mean Corpuscular Hemoglobin 31.9 pg (26-34); Mean Corpuscular Volume 97.9 fl (80-100); Nucleated Red Blood Cells Absolute Auto 0.000 K/mm3 (0.0-0.012); Nucleated Red Blood Cells Perc 0.0 % (0.0-0.2); Platelet Count Result 152 k/mm3 (150-375); Red Blood Count 3.35 M/mm3 (4.2-5.4); White Blood Count 5.4 K/mm3 (4.5-10.0)
[2025-05-01 03:06] LABS: Anion Gap 8 mmol/L (4-12); Blood Urea Nitrogen 41 mg/dL (7-17); Calcium 8.8 mg/dL (8.4-10.2); Carbon Dioxide 22 mmol/L (22-30); Chloride 110 mmol/L (98-107); Estimated CRCL calculation 31 ml/min; Estimated Glomerular Filt Rate 44; Glucose 135 mg/dL (65-110); Potassium 3.5 mmol/L (3.4-5.0); Sodium 140 mmol/L (137-145)
[2025-05-01 03:18] LABS: Troponin I 0.054 ng/mL (0.000-0.034)
[2025-05-01] MEDS: FUROSEMIDE INJ 40 MG/4 ML VIAL IV PUSH ×2 (08:23→21:30)
[2025-05-01] MEDS: METOPROLOL SUCCINATE EXT REL 25 MG TABCR PO (08:23)
[2025-05-01] MEDS: SACUBITRIL/VALSARTAN 24-26 MG TABLET 1 TAB PO ×2 (08:23→21:30)
[2025-05-01] MEDS: APIXABAN 5 MG TABLET PO ×2 (08:23→21:30)
[2025-05-01] MEDS: CLOPIDOGREL BISULFATE 75 MG TABLET PO (08:23)
[2025-05-01] MEDS: AMIODARONE HCL 200 MG TABLET PO (08:24)
--- NOTE | 2025-05-01 08:46 | P.PNIM_ITS ---
Progress Note: A&P Assessment and Plan (1) Acute CHF (congestive heart failure): Qualifiers: Heart failure type: systolic Qualified Code(s): I50.21 - Acute systolic (congestive) heart failure Code(s): I50.9 - Heart failure, unspecified Status: Acute Assessment and Plan: * Symptoms: Shortness of breath * Current medications: Lasix, Entresto * Supportive treatment * BNP: 00995 * EKG: bradycardia (54), sinus rhythm and non-specific ST changes (slight ST elevation of anterior leads, appears similar to 04/10) * Chest XR:CHF with superimposed probable pneumonia * Echo (03/23/25): EF 25-30%, apex/septum/anterior wall/distal inferior wall severely hypokinetic, moderate aortic stenosis, Dilated inferior vena cava with <50% collapse upon inspiration consistent with significantly elevated right atrial pressure * Monitor vital signs, I&Os, BUN/creatinine, daily weights, neuro status and patient is a fall risk * Monitor serum electrolytes, Keep serum Potassium>4 and serum Magnesium>2 and CBC * Cardio consult * IV diuresis with Lasix 40 mg b.i.d. * TTE to evaluate LV VS * Continue anticoagulation Eliquis, amiodarone, clopidogrel, atorvastatin * Continue Entresto, Add empagliflozin 10 mg daily * Once she is euvolemic, recommend staged PCI to her 70% proximal ramus intermediate stenosis to achieve complete revascularization post STEMI (2) Ischemic cardiomyopathy: Code(s): I25.5 - Ischemic cardiomyopathy Status: Acute Assessment and Plan: * See plan above (3) Elevated troponin: Code(s): R79.89 - Other specified abnormal findings of blood chemistry Status: Acute Assessment and Plan: * Likely secondary to demand ischemia * EKG not suggestive of ischemia (4) Hypertension: Qualifiers: Hypertension type: primary hypertension Qualified Code(s): I10 - Essential (primary) hypertension Code(s): I10 - Essential (primary) hypertension Status: Acute Assessment and Plan: * Patient's blood pressure was reviewed on 05/01 * Blood pressure remains well controlled. * Will continue current medications. (5) Hyperlipidemia: Qualifiers: Hyperlipidemia type: pure hypercholesterolemia Qualified Code(s): E78.00 - Pure hypercholesterolemia, unspecified Code(s): E78.5 - Hyperlipidemia, unspecified Status: Acute Assessment and Plan: * Continue atorvastatin (6) Coronary artery disease: Code(s): I25.10 - Atherosclerotic heart disease of [place] coronary artery without angina pectoris Status: Acute Assessment and Plan: * Continue at-home medications (7) Atrial fibrillation: Code(s): I48.91 - Unspecified atrial fibrillation Status: Acute Assessment and Plan: * Continue anticoagulation with Eliquis Subjective Date/time seen: 05/01/25 08:46 Interval history: Extremely anxious but pleasant 74-year-old female with a past medical history of tobacco abuse with recent tobacco cessation, recent STEMI 03/22/2025 with 2 drug-eluting stents placed to the LAD and subsequent ischemic cardiomyopathy with EF of, 25-30% and complicated by post ischemia paroxysmal atrial fibrillation who presented to the ER with bilateral lower extremity swelling and increasing shortness of breath. 05/01/2025 Patient sitting at side of bed during exam. Denies any chest pain, shortness of breath, n/v or abd pain at this moment. Cardiology consulted regarding CHF exacerbation/elevated troponin -continue IV diuresis with Lasix 40 mg b.i.d., TTE to evaluate LVEF, continue at-home medications and adding empagliflozin. No leukocytosis, vitals remain stable without fever. No egregious electrolyte abnormalitities. Blood cultures pending. Pneumonia less likely - abx discontinued. Review of Systems Review of Systems: 12 systems were reviewed with pertinent positives and negatives per HPI. Except as documented in the HPI, all other systems were reviewed and are negative. Exam Narrative: Weight 55.7 kg Const: Other: Anxious but no physical acute distress, appears older than stated age HENMT: Other: Mucous membranes are moist, no oral pharyngeal erythema, no scleral icterus, no conjunctival pallor Neck: Other: JVD noted, no lymphadenopathy Resp: Other: Crackles bilateral bases right greater than left Cardio: Other: Regular rate, regular rhythm, JVD noted, 2/6 systolic murmur GI: Other: Minimally distended, soft, nontender Skin: Other: Tanned, non jaundice Neuro: Other: Alert oriented, speech is clear, no facial asymmetry, no localizing neurologic deficits noted, normal gait Extrem: Other: Trace edema to bilateral ankles and feet, 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 Psych: Other: Markedly anxious but pleasant and cooperative, good judgment and insight Objective Data Vital Signs Vital Signs: Vital Signs - 24 hr 04/30/25 15:57 04/30/25 16:56 04/30/25 16:56 Temperature 98.5 F Pulse Rate 58 L 57 L Respiratory Rate 18 Blood Pressure 112/69 Pulse Oximetry 97 94 Oxygen Delivery Room Air Room Air 04/30/25 18:58 04/30/25 20:53 04/30/25 22:17 Temperature Pulse Rate 57 L 63 Respiratory Rate 19 22 H Blood Pressure 123/79 117/81 Pulse Oximetry 97 98 Oxygen Delivery Room Air 04/30/25 23:49 05/01/25 00:00 05/01/25 03:31 Temperature 97.8 F Pulse Rate 66 68 68 Respiratory Rate 20 Blood Pressure 90/55 L Pulse Oximetry 95 Oxygen Delivery 05/01/25 04:11 05/01/25 06:00 05/01/25 08:23 Temperature 97.5 F L Pulse Rate 60 59 L 60 Respiratory Rate 20 Blood Pressure 107/65 Pulse Oximetry 94 Oxygen Delivery 05/01/25 08:24 Temperature Pulse Rate 60 Respiratory Rate Blood Pressure Pulse Oximetry Oxygen Delivery Intake/Output Intake/Output: Intake & Output 04/28/25 04/29/25 04/30/25 05/01/25 23:59 23:59 23:59 23:59 Intake Total 300 490 Output Total 1000 Balance 300 -510 Meds/Results Medications: Active Medications Generic Name Dose Route Start Last Admin Trade Name Freq PRN Reason Stop Dose Admin Acetaminophen 650 mg 04/30/25 21:12 Acetaminophen 325 Mg Tablet PO Q4H PRN Mild Pain (1-3) or Fever Amiodarone HCl 200 mg 05/01/25 08:00 05/01/25 08:24 Amiodarone Hcl 200 Mg Tablet PO 200 mg DAILY@0800 VICTORIANO Administration Apixaban 5 mg 05/01/25 09:00 05/01/25 08:23 Apixaban 5 Mg Tablet PO 5 mg Q12HR VICTORIANO Administration Atorvastatin Calcium 80 mg 05/01/25 21:00 Atorvastatin 40 Mg Tablet PO HS VICTORIANO Clopidogrel Bisulfate 75 mg 05/01/25 09:00 05/01/25 08:23 Clopidogrel Bisulfate 75 Mg Tablet PO 75 mg QAM VICTORIANO Administration Dextrose 12.5 gm 04/30/25 21:12 Dextrose 50% 25 Gm/50 Ml Syringe IV PUSH PRN PRN Hypoglycemia Protocol Furosemide 40 mg 05/01/25 09:00 05/01/25 08:23 Furosemide Inj 40 Mg/4 Ml Vial IV PUSH 40 mg Q12HR VICTORIANO Administration Glucagon 1 mg 04/30/25 21:12 Glucagon For Inj 1 Mg Vial IM PRN PRN Hypoglycemia Protocol Glucose 15 gm 04/30/25 21:12 Glucose Oral Gel 15 Gm Of Glucse In 37.5 Gm Tube PO PRN PRN Hypoglycemia Protocol Dextrose 1,000 mls @ 100 mls/hr 04/30/25 21:12 Dextrose 5% 1,000 Ml IVPB PRN PRN Hypoglycemia Protocol Melatonin 5 mg 05/01/25 21:00 Melatonin 5 Mg Tablet PO HS VICTORIANO Metoprolol Succinate 25 mg 05/01/25 09:00 05/01/25 08:23 Metoprolol Succinate Ext Rel 25 Mg Tabcr PO 25 mg QAM VICTORIANO Administration Sacubitril/Valsartan 1 tab 05/01/25 09:00 05/01/25 08:23 Sacubitril/Valsartan 24-26 Mg Tablet PO 1 tab Q12HR VICTORIANO Administration Radiology Results: ITS Impressions Chest X-Ray 04/30/25 17:07 Impression: CHF with superimposed probable pneumonia Labs Labs: Laboratory Results - last 24 hr 04/30/25 04/30/25 04/30/25 17:12 17:58 23:26 WBC 4.6 RBC 3.56 L Hgb 11.3 L Hct 35.2 L MCV 98.9 MCH 31.7 MCHC 32.1 RDW 15.9 H Plt Count 167 MPV 11.6 H Immature Gran % (Auto) 0.4 Neut % (Auto) 77.8 H Lymph % (Auto) 11.4 L Lake % (Auto) 9.0 H Eos % (Auto) 0.7 Baso % (Auto) 0.7 Lymph # (Auto) 0.52 L [place] # (Auto) 0.4 Eos # (Auto) 0.0 Baso # (Auto) 0.0 Abs Immat Gran (auto) 0.02 Absolute Neuts (auto) 3.6 Absolute Nucleated RBC 0.000 Nucleated RBC % 0.0 PT 16.4 H INR 1.3 APTT 28.3 Sodium 141 Potassium 3.8 Chloride 108 H Carbon Dioxide 24 Anion Gap 9 BUN 41 H Creatinine 1.24 H Estim Creat Clear Calc 30 Estimated GFR 42 L Glucose 108 Calcium 9.4 Total Bilirubin 0.9 AST 33 ALT 36 H Alkaline Phosphatase 101 Troponin I 0.046 H* 0.067 H* D NT-Pro-B Natriuret Pep 68056 H Total Protein 5.9 L Albumin 3.8 Influenza A (RT-PCR) Negative Influenza B (RT-PCR) Negative RSV (RT-PCR) Negative SARS-CoV-2 RNA (RT-PCR) Negative 05/01/25 05/01/25 05/01/25 02:45 02:45 02:45 WBC 5.4 RBC 3.35 L Hgb 10.7 L Hct 32.8 L MCV 97.9 MCH 31.9 MCHC 32.6 RDW 15.9 H Plt Count 152 MPV 11.7 H Immature Gran % (Auto) 0.7 H Neut % (Auto) 80.0 H Lymph % (Auto) 8.9 L Lake % (Auto) 8.9 H Eos % (Auto) 1.1 Baso % (Auto) 0.4 Lymph # (Auto) 0.48 L [place] # (Auto) 0.5 Eos # (Auto) 0.1 Baso # (Auto) 0.0 Abs Immat Gran (auto) 0.04 H Absolute Neuts (auto) 4.3 Absolute Nucleated RBC 0.000 Nucleated RBC % 0.0 PT INR APTT Sodium Cancelled 140 Potassium Cancelled 3.5 Chloride Cancelled Carbon Dioxide Anion Gap BUN Creatinine Estim Creat Clear Calc Estimated GFR Glucose Calcium Total Bilirubin AST ALT Alkaline Phosphatase Troponin I NT-Pro-B Natriuret Pep Total Protein Albumin Influenza A (RT-PCR) Influenza B (RT-PCR) RSV (RT-PCR) SARS-CoV-2 RNA (RT-PCR) 05/01/25 05/01/25 05/01/25 02:45 02:45 02:45 WBC RBC Hgb Hct MCV MCH MCHC RDW Plt Count MPV Immature Gran % (Auto) Neut % (Auto) Lymph % (Auto) Lake % (Auto) Eos % (Auto) Baso % (Auto) Lymph # (Auto) Lake # (Auto) Eos # (Auto) Baso # (Auto) Abs Immat Gran (auto) Absolute Neuts (auto) Absolute Nucleated RBC Nucleated RBC % PT INR APTT Sodium Potassium Chloride 110 H Carbon Dioxide Cancelled 22 Anion Gap Cancelled 8 BUN Cancelled Creatinine Estim Creat Clear Calc Estimated GFR Glucose Calcium Total Bilirubin AST ALT Alkaline Phosphatase Troponin I NT-Pro-B Natriuret Pep Total Protein Albumin Influenza A (RT-PCR) Influenza B (RT-PCR) RSV (RT-PCR) SARS-CoV-2 RNA (RT-PCR) 05/01/25 05/01/25 05/01/25 02:45 02:45 02:45 WBC RBC Hgb Hct MCV MCH MCHC RDW Plt Count MPV Immature Gran % (Auto) Neut % (Auto) Lymph % (Auto) Lake % (Auto) Eos % (Auto) Baso % (Auto) Lymph # (Auto) Lake # (Auto) Eos # (Auto) Baso # (Auto) Abs Immat Gran (auto) Absolute Neuts (auto) Absolute Nucleated RBC Nucleated RBC % PT INR APTT Sodium Potassium Chloride Carbon Dioxide Anion Gap BUN 41 H Creatinine Cancelled 1.20 H Estim Creat Clear Calc Cancelled 31 Estimated GFR Cancelled Glucose Calcium Total Bilirubin AST ALT Alkaline Phosphatase Troponin I NT-Pro-B Natriuret Pep Total Protein Albumin Influenza A (RT-PCR) Influenza B (RT-PCR) RSV (RT-PCR) SARS-CoV-2 RNA (RT-PCR) 05/01/25 05/01/25 05/01/25 02:45 02:45 02:45 WBC RBC Hgb Hct MCV MCH MCHC RDW Plt Count MPV Immature Gran % (Auto) Neut % (Auto) Lymph % (Auto) Lake % (Auto) Eos % (Auto) Baso % (Auto) Lymph # (Auto) Lake # (Auto) Eos # (Auto) Baso # (Auto) Abs Immat Gran (auto) Absolute Neuts (auto) Absolute Nucleated RBC Nucleated RBC % PT INR APTT Sodium Potassium Chloride Carbon Dioxide Anion Gap BUN Creatinine Estim Creat Clear Calc Estimated GFR 44 L Glucose Cancelled 135 H Calcium Cancelled 8.8 Total Bilirubin AST ALT Alkaline Phosphatase Troponin I 0.054 H* NT-Pro-B Natriuret Pep Total Protein Albumin Influenza A (RT-PCR) Influenza B (RT-PCR) RSV (RT-PCR) SARS-CoV-2 RNA (RT-PCR) Quality VTE Prophylaxis VTE prophylaxis: pharmacologic ordered (Continue home Eliquis)
--- NOTE | 2025-05-01 08:51 | PM.CNCAR ---
Assessment and Plan Assessment and plan (1) Acute on chronic systolic heart failure: Code(s): I50.23 - Acute on chronic systolic (congestive) heart failure Status: Acute (2) Ischemic cardiomyopathy: Code(s): I25.5 - Ischemic cardiomyopathy Status: Acute (3) Elevated troponin: Code(s): R79.89 - Other specified abnormal findings of blood chemistry Status: Acute (4) Coronary artery disease: Code(s): I25.10 - Atherosclerotic heart disease of [place] coronary artery without angina pectoris Status: Acute Plan Diagnosis: STEMI on 03/22/2025 status post PCI to proximal LAD with 2 drug-eluting stents (she she was also noted to have 70% stenosis of proximal ramus intermedius, 50% stenosis of ostial RCA) CAD-70% stenosis in proximal ramus intermedius and 50% stenosis of ostial RCA Ischemic cardiomyopathy with LVEF 25-30% Acute on chronic systolic heart failure Paroxysmal atrial fibrillation Tobacco abuse with recent tobacco cessation Hyperlipidemia Hypertension Plan: IV diuresis with Lasix 40 mg b.i.d. Check ins and outs, weight daily Check and replace electrolytes to keep potassium greater than 4 and magnesium greater than 2 Check renal function daily Limited TTE to evaluate LVEF Continue anticoagulation with Eliquis for AFib Continue amiodarone Continue clopidogrel and Eliquis given recent primary PCI in 03/2025 Continue atorvastatin Guideline directed medical therapy for ischemic cardiomyopathy. No beta-jacki given bradycardia. Continue Entresto. Add empagliflozin 10 mg daily Once she is euvolemic, recommend staged PCI to her 70% proximal ramus intermediate stenosis to achieve complete revascularization post STEMI Plan discussed with patient and she is agreeable History of Present Illness History of Present Illness Consult date/time: 05/01/25 08:51 Reason For Visit: CHF exacerbation, PNA, Elev trop Narrative: 74-year-old female with medical history of CAD, STEMI on 03/22/2025 status post PCI to proximal LAD with 2 drug-eluting stents (she she was also noted to have 70% stenosis of proximal ramus intermedius, 50% stenosis of ostial RCA), ischemic cardiomyopathy with LVEF 25-30%, paroxysmal atrial fibrillation, tobacco abuse with recent tobacco cessation, hyperlipidemia, hypertension presents with chief complaints of increasing shortness of breath and bilateral lower extremity swelling. She states that drank more water on [place] due to being dehydrated. She also states that she ate salty food on Thursday and the weekend. Prior to this her dose of Lasix was reduced from 20 mg daily to 20 mg on Thursday, Thursday, and Thursday. With these changes, she noticed increased leg swelling and shortness of breath. She reports orthopnea due to which it has been difficult to sleep. She reports cough when she lays flat. She also reports increased abdominal distention. She has gained 1 lb. No chest pain, palpitations, presyncope, syncope. Workup: Hemoglobin: 10.7 Potassium: 3.5 Creatinine: 1.2 Troponin: 0.046, 0.067, 0.054 NT proBNP: 18,600 EKG: Sinus bradycardia, LVH, probable inferior infarct-age indeterminate, anteroseptal infarct-probably recent Chest x-ray: Mild pulmonary venous congestion. Small basilar infiltrates and effusions. Prior cardiac workup: TTE in 03/2025: Summary 1. The left ventricle is normal in size with severely reduced systolic function. The left ventricular ejection fraction is visually estimated to be 25-30%. The entire apex, septum, anterior wall, and distal inferior wall are severely hypokinetic. There is no apical thrombus. 2. The right ventricle is normal in size and systolic function. 3. The aortic valve is not well visualized however there is moderate aortic stenosis by Doppler criteria. 4. Dilated inferior vena cava with <50% collapse upon inspiration consistent with significantly elevated right atrial pressure, 15 mmHg. Review of Systems Review of Systems: Complete review of systems was performed and pertinent positives are reported in HPI. COUNT INCLUDES THE [facility] Past Medical History Medical History (Updated 05/01/25 @ 14:21 by Bailey Carranza MD) Paroxysmal atrial fibrillation Post cardiac catheterization Tobacco abuse Quit smoking when she had her STEMI 03/22/[address] elevation (STEMI) myocardial infarction (03/22/25) Ischemic cardiomyopathy Hypertension Surgical History Surgical History H/O cervical spine surgery X2 History of coronary artery stent placement (03/22/25) LAD is stent x2 Social History Social History Social History: Code status: Full code Surrogate decision maker: Daughter Smoking packs per day: 0.33 Smoking cigarettes per day: 6.6 Years smoked: 13 Smoking pack-years: 4.29 Smoking status: Former smoker Tobacco type: cigarettes Second hand tobacco smoke exposure: No Alcohol intake: never Substance use: never Substance use type: does not use Lack of Transportation: No Lack of Food: Never True Current Housing: I Have Housing Concerned About Future Housing: No Difficulty Paying Gas/Electric Bills: No Difficulty Paying for Meds: YES Currently Unemployed: No Education: High School Diploma/GED Difficulty w/ Childcare or Family Care: No Living arrangements: alone Occupation/Education: retired 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 Spiritual care concerns: No Meds Home Medications and Allergies Home Medications ?Medication ?Instructions ?Recorded ?Confirmed ?Type atorvastatin 40 mg tablet 80 mg (2 x 40 mg) PO HS #180 tabs 03/23/25 04/30/25 Rx varenicline tartrate 0.5 mg (11)-1 See Rx Instructions PO .COMPLEX 03/23/25 04/30/25 Rx mg (42) tablets in a dose pack #53 ea (Chantix Starting Month Box) apixaban 5 mg tablet (Eliquis) 5 mg PO BID #60 tabs 03/27/25 04/30/25 Rx clopidogrel 75 mg tablet 75 mg PO QAM 30 days #30 tabs 03/27/25 04/30/25 Rx sacubitril 24 mg-valsartan 26 mg 1 tab PO Q12HR 30 days #60 tabs 03/27/25 04/30/25 Rx tablet (Entresto) amiodarone 200 mg tablet ([place]) 200 mg PO DAILY@0800 #30 tabs 04/11/25 04/30/25 Rx furosemide 40 mg tablet (Lasix) 20 mg (1/2 x 40 mg) PO DAILY #10 04/11/25 04/30/25 Rx tabs metoprolol succinate 25 mg 25 mg PO QAM #30 tabs 04/11/25 04/30/25 Rx tablet,extended release 24 hr (Toprol XL) Allergies Allergy/AdvReac Type Severity Reaction Status Date / Time No Known Allergies Allergy Unverified 03/22/25 15:08 Vital Signs Vital Signs - 24 hr 04/30/25 15:57 04/30/25 16:56 04/30/25 16:56 Temperature 36.9 C Pulse Rate 58 L 57 L Respiratory Rate 18 Blood Pressure 112/69 Pulse Oximetry 97 94 Oxygen Delivery Room Air Room Air 04/30/25 18:58 04/30/25 20:53 04/30/25 22:17 Temperature Pulse Rate 57 L 63 Respiratory Rate 19 22 H Blood Pressure 123/79 117/81 Pulse Oximetry 97 98 Oxygen Delivery Room Air 04/30/25 23:49 05/01/25 00:00 05/01/25 03:31 Temperature 36.6 C Pulse Rate 66 68 68 Respiratory Rate 20 Blood Pressure 90/55 L Pulse Oximetry 95 Oxygen Delivery 05/01/25 04:11 05/01/25 06:00 05/01/25 08:23 Temperature 36.4 C L Pulse Rate 60 59 L 60 Respiratory Rate 20 Blood Pressure 107/65 Pulse Oximetry 94 Oxygen Delivery 05/01/25 08:24 Temperature Pulse Rate 60 Respiratory Rate Blood Pressure Pulse Oximetry Oxygen Delivery Exam Narrative: General: Alert oriented x3, no acute distress Neck: Supple, JVD + Chest: Bibasilar rales, no rhonchi Cardiac: S1, S2 +, regular rate, regular rhythm, no murmurs or rubs Extremities: Bilateral lower extremity edema 1+, no skin rash Neurologic: Alert and oriented x3, no focal neurological deficits Results Labs and Meds 05/01/25 02:45 05/01/25 02:45 Lab results: Cardiac Enzymes 04/30/25 04/30/25 05/01/25 Range/Units 17:12 23:26 02:45 AST 33 (14-36) U/L Troponin I 0.046 H* 0.067 H* D 0.054 H* (0.000-0.034) ng/mL Coagulation 04/30/25 Range/Units 17:12 PT 16.4 H (11.1-14.7) Seconds APTT 28.3 (22.3-36.8) Seconds CBC 04/30/25 05/01/25 Range/Units 17:12 02:45 WBC 4.6 5.4 (4.5-10.0) K/mm3 RBC 3.56 L 3.35 L (4.2-5.4) M/mm3 Hgb 11.3 L 10.7 L (12.0-15.0) g/dL Hct 35.2 L 32.8 L (37.0-47.0) % Plt Count 167 152 (150-375) k/mm3 Lymph # (Auto) 0.52 L 0.48 L (0.9-3.2) K/mm3 [place] # (Auto) 0.4 0.5 (0.1-0.6) K/mm3 Eos # (Auto) 0.0 0.1 (0-0.3) K/mm3 Baso # (Auto) 0.0 0.0 (0.0-0.1) K/mm3 Comprehensive Metabolic Panel 04/30/25 05/01/25 05/01/25 Range/Units 17:12 02:45 02:45 Sodium 141 Cancelled 140 (137-145) mmol/L Potassium 3.8 Cancelled (3.4-5.0) mmol/L Chloride 108 H (98-107) mmol/L Carbon Dioxide 24 (22-30) mmol/L BUN 41 H (7-17) mg/dL Creatinine 1.24 H (0.7-1.0) mg/dL Glucose 108 (65-110) mg/dL Calcium 9.4 (8.4-10.2) mg/dL AST 33 (14-36) U/L ALT 36 H (6-35) U/L Alkaline Phosphatase 101 (38-126) U/L Total Protein 5.9 L (6.3-8.2) g/dL Albumin 3.8 (3.5-5.1) g/dL 05/01/25 05/01/25 05/01/25 Range/Units 02:45 02:45 02:45 Sodium (137-145) mmol/L Potassium 3.5 (3.4-5.0) mmol/L Chloride Cancelled 110 H (98-107) mmol/L Carbon Dioxide Cancelled 22 (22-30) mmol/L BUN Cancelled (7-17) mg/dL Creatinine (0.7-1.0) mg/dL Glucose (65-110) mg/dL Calcium (8.4-10.2) mg/dL AST (14-36) U/L ALT (6-35) U/L Alkaline Phosphatase (38-126) U/L Total Protein (6.3-8.2) g/dL Albumin (3.5-5.1) g/dL 05/01/25 05/01/25 05/01/25 Range/Units 02:45 02:45 02:45 Sodium (137-145) mmol/L Potassium (3.4-5.0) mmol/L Chloride (98-107) mmol/L Carbon Dioxide (22-30) mmol/L BUN 41 H (7-17) mg/dL Creatinine Cancelled 1.20 H (0.7-1.0) mg/dL Glucose Cancelled 135 H (65-110) mg/dL Calcium Cancelled (8.4-10.2) mg/dL AST (14-36) U/L ALT (6-35) U/L Alkaline Phosphatase (38-126) U/L Total Protein (6.3-8.2) g/dL Albumin (3.5-5.1) g/dL 05/01/25 Range/Units 02:45 Sodium (137-145) mmol/L Potassium (3.4-5.0) mmol/L Chloride (98-107) mmol/L Carbon Dioxide (22-30) mmol/L BUN (7-17) mg/dL Creatinine (0.7-1.0) mg/dL Glucose (65-110) mg/dL Calcium 8.8 (8.4-10.2) mg/dL AST (14-36) U/L ALT (6-35) U/L Alkaline Phosphatase (38-126) U/L Total Protein (6.3-8.2) g/dL Albumin (3.5-5.1) g/dL Intake and Output 04/30/25 05/01/25 05/01/25 23:59 07:59 15:59 Intake Total 300 490 Output Total 1000 Balance 300 -510 Intake: IV 300 Azithromycin IV 500 mg In 250 Sodium Chloride 0.9% IV 250 ml @ 250 mls/hr IVPB ONCE STA Rx#: [id number] cefTRIAXone 1 gm In Sodium 50 Chloride 0.9% IV 50 ml @ 100 mls/hr IVPB ONCE STA Rx#: [id number] Oral 490 Output: Urine 1000
[2025-05-01] MEDS: PERFLUTREN LIPID MICROSPHERES 1.5 ML VIAL DILUTED TO 10 ML TOTAL VOLUME IV PUSH (16:01)
--- NOTE | 2025-05-01 16:02 | IVDEFINITY ---
Prior to administration of IV Definity the patient was educated on the risks and benefits of the imaging enhancing agent including potential adverse side effects. The patient verbalized understanding. Allergies were verified. No exclusion criteria were identified and at least one of the following inclusion criteria were met: 1) physician request, 2) patient technically difficult to image (per the [place] [employer] guidelines of two or more segments not discernable within the apical view), or 3) questionable left ventricular function. ?
--- NOTE | 2025-05-01 16:32 | PC.NURSE ---
This patient, Patience Marroquin, was transferred to [facility] from [facility] on 05/01/25 at 1600. Personal belongings sent with patient.
[2025-05-01] MEDS: MELATONIN 5 MG TABLET PO (21:30)
[2025-05-01] MEDS: ATORVASTATIN 40 MG TABLET 80 MG PO (21:30)
[2025-05-02] VITALS (11 sets, daily range): BP systolic 95–110; BP diastolic 58–66; PULSE 53–69; RESP 18–20; TEMP 36.1–36.8; O2SAT 93–97
[2025-05-02 08:17] LABS: Hematocrit 39.7 % (37.0-47.0); Hemoglobin 12.4 g/dL (12.0-15.0); Immature Granulocyte Percent A 2.1 % (0-0.5); Lymphocytes Absolute Auto 0.58 K/mm3 (0.9-3.2); Mean Corpuscular HGB Conc 31.2 g/dl (32-36); Mean Corpuscular Hemoglobin 32.1 pg (26-34); Mean Corpuscular Volume 102.8 fl (80-100); Nucleated Red Blood Cells Absolute Auto 0.000 K/mm3 (0.0-0.012); Nucleated Red Blood Cells Perc 0.0 % (0.0-0.2); Platelet Count Result 184 k/mm3 (150-375); Red Blood Count 3.86 M/mm3 (4.2-5.4); White Blood Count 4.9 K/mm3 (4.5-10.0)
[2025-05-02 08:44] LABS: Alanine Aminotransferase 38 U/L (6-35); Albumin Level 3.8 g/dL (3.5-5.1); Alkaline Phosphatase 105 U/L (38-126); Anion Gap 10 mmol/L (4-12); Aspartate Amino Transferase 40 U/L (14-36); Bilirubin,Total 0.7 mg/dL (0.2-1.3); Blood Urea Nitrogen 48 mg/dL (7-17); Calcium 9.1 mg/dL (8.4-10.2); Carbon Dioxide 24 mmol/L (22-30); Chloride 106 mmol/L (98-107); Estimated CRCL calculation 32 ml/min; Estimated Glomerular Filt Rate 46; Glucose 118 mg/dL (65-110); Potassium 3.6 mmol/L (3.4-5.0); Sodium 140 mmol/L (137-145); Total Protein 6.2 g/dL (6.3-8.2)
[2025-05-02] MEDS: AMIODARONE HCL 200 MG TABLET PO (09:02)
[2025-05-02] MEDS: EMPAGLIFLOZIN 10 MG TABLET PO (09:02)
[2025-05-02] MEDS: CLOPIDOGREL BISULFATE 75 MG TABLET PO (09:02)
[2025-05-02] MEDS: SACUBITRIL/VALSARTAN 24-26 MG TABLET 1 TAB PO ×2 (09:03→20:26)
[2025-05-02] MEDS: FUROSEMIDE INJ 40 MG/4 ML VIAL IV PUSH (09:03)
[2025-05-02] MEDS: APIXABAN 5 MG TABLET PO (09:03)
[2025-05-02] MEDS: METOPROLOL SUCCINATE EXT REL 25 MG TABCR PO (09:03)
--- NOTE | 2025-05-02 11:05 | PN_ITS ---
This document was recreated on 05/22/2025. The original document was signed by Fadumo Murcia APRN on 05/02/2025 1113. Progress Note: A&P Assessment and Plan (1) Acute on chronic systolic heart failure: Code(s): I50.23 - Acute on chronic systolic (congestive) heart failure <Fadumo Murcia APRN - Last Filed: 05/02/25 11:13> Status: Acute <Fadumo Murcia APRN - Last Filed: 05/02/25 11:13> (2) Ischemic cardiomyopathy: Code(s): I25.5 - Ischemic cardiomyopathy <Fadumo Murcia APRN - Last Filed: 05/02/25 11:13> Status: Acute <Fadumo Murcia APRN - Last Filed: 05/02/25 11:13> (3) Elevated troponin: Code(s): R79.89 - Other specified abnormal findings of blood chemistry <Fadumo Murcia APRN - Last Filed: 05/02/25 11:13> Status: Acute <Fadumo Murcia LABOR COMMISSIONER - Last Filed: 05/02/25 11:13> (4) Coronary artery disease: Code(s): I25.10 - Atherosclerotic heart disease of [place] coronary artery without angina pectoris <Fadumo Murcia APRN - Last Filed: 05/02/25 11:13> Status: Acute <Fadumo Murcia APRN - Last Filed: 05/02/25 11:13> Assessment and Plan: Diagnosis: STEMI on 03/22/2025 status post PCI to proximal LAD with 2 drug-eluting stents (she she was also noted to have 70% stenosis of proximal ramus intermedius, 50% stenosis of ostial RCA) CAD-70% stenosis in proximal ramus intermedius and 50% stenosis of ostial RCA Ischemic cardiomyopathy with LVEF 25-30%, repeat echo demonstrates EF of 30-35% Acute on chronic systolic heart failure Paroxysmal atrial fibrillation Tobacco abuse with recent tobacco cessation Hyperlipidemia Hypertension Plan: Change to PO lasix 40 mg daily Check ins and outs, weight daily Check and replace electrolytes to keep potassium greater than 4 and magnesium greater than 2 Check renal function daily Limited TTE to evaluate LVEF demonstrates improvement in EF to 30-35% Continue anticoagulation with Eliquis for AFib Continue amiodarone Continue clopidogrel and Eliquis given recent primary PCI in 03/2025 Continue atorvastatin Guideline directed medical therapy for ischemic cardiomyopathy. No beta-jacki given bradycardia. Continue Entresto. Added empagliflozin 10 mg daily Once she is euvolemic, recommend staged PCI to her 70% proximal ramus intermediate stenosis to achieve complete revascularization post STEMI Plan discussed with patient and she is agreeable Possible dc home later today and OP follow up in office in the next 1-2 weeks <Fadumo Murcia, SHANTA - Last Filed: 05/02/25 11:13> Diagnosis: STEMI on 03/22/2025 status post PCI to proximal LAD with 2 drug-eluting stents (she she was also noted to have 70% stenosis of proximal ramus intermedius, 50% stenosis of ostial RCA) CAD-70% stenosis in proximal ramus intermedius and 50% stenosis of ostial RCA Ischemic cardiomyopathy with LVEF 25-30%, repeat echo demonstrates EF of 30-35% Acute on chronic systolic heart failure Paroxysmal atrial fibrillation Tobacco abuse with recent tobacco cessation Hyperlipidemia Hypertension Plan: Change to PO lasix 40 mg daily Check ins and outs, weight daily Check and replace electrolytes to keep potassium greater than 4 and magnesium greater than 2 Check renal function daily Limited TTE to evaluate LVEF demonstrates improvement in EF to 30-35% Continue anticoagulation with Eliquis for AFib Continue amiodarone Continue clopidogrel and Eliquis given recent primary PCI in 03/2025 Continue atorvastatin Guideline directed medical therapy for ischemic cardiomyopathy. No beta-jacki given bradycardia. Continue Entresto. Added empagliflozin 10 mg daily Once she is euvolemic, recommend staged PCI to her 70% proximal ramus intermediate stenosis to achieve complete revascularization post STEMI Plan discussed with patient and she is agreeable <Bailey Carranza MD - Last Filed: 05/02/25 11:23> Subjective Date/time seen: 05/02/25 11:05 <Fadumo Murcia APRN - Last Filed: 05/02/25 11:13> Interval history: Extremely anxious but pleasant 74-year-old female with a past medical history of tobacco abuse with recent tobacco cessation, recent STEMI 03/22/2025 with 2 drug-eluting stents placed to the LAD and subsequent ischemic cardiomyopathy with EF of, 25-30% and complicated by post ischemia paroxysmal atrial fibrillation who presented to the ER with bilateral lower extremity swelling and increasing shortness of breath. 05/01/2025 Patient sitting at side of bed during exam. Denies any chest pain, shortness of breath, n/v or abd pain at this moment. Cardiology consulted regarding CHF exacerbation/elevated troponin -continue IV diuresis with Lasix 40 mg b.i.d., TTE to evaluate LVEF, continue at-home medications and adding empagliflozin. No leukocytosis, vitals remain stable without fever. No egregious electrolyte abnormalitities. Blood cultures pending. Pneumonia less likely - abx discontinued. 05/02/25: Patient is up ambulating in room and overall feeling well. No c/o any chest pain or pressure. No reports of any shortness of breath. She is hopeful that she could go home later today. <Fadumo Murcia APRN - Last Filed: 05/02/25 11:13> Review of Systems Review of Systems: All systems reviewed & are unremarkable except as noted in HPI and below (HPI ) <Fadumo Murcia APRN - Last Filed: 05/02/25 11:13> Exam Narrative: General: Alert oriented x3, no acute distress Neck: Supple Chest: CTAB Cardiac: S1, S2 +, regular rate, regular rhythm, no murmurs or rubs Extremities: Bilateral lower extremity edema 1+, no skin rash Neurologic: Alert and oriented x3, no focal neurological deficits <Fadumo Murcia APRN - Last Filed: 05/02/25 11:13> Objective Data Vital Signs Vital Signs: Vital Signs - 24 hr 05/01/2512:00 05/01/2514:00 05/01/2516: Temperature 36.7 C Pulse Rate 56 L 61 62 Respiratory Rate 18 Blood Pressure 116/72 Pulse Oximetry 95 Oxygen Delivery 05/01/2521:40 05/02/2500:00 05/02/2504:00 Temperature 37.0 C Pulse Rate 60 62 57 L Respiratory Rate 20 Blood Pressure 100/57 L Pulse Oximetry 95 Oxygen Delivery 05/02/2506:00 05/02/2508:00 05/02/2508:00 Temperature 36.8 C Pulse Rate 69 69 58 L Respiratory Rate 20 20 Blood Pressure 110/66 Pulse Oximetry 95 95 Oxygen Delivery Room Air 05/02/2509:02 05/02/2509:03 Temperature Pulse Rate 69 69 Respiratory Rate Blood Pressure Pulse Oximetry Oxygen Delivery <Fadumo Murcia APRN - Last Filed: 05/02/25 11:13> Intake/Output Intake/Output: Intake & Output 04/29/25 04/30/25 05/01/25 05/02/25 23:59 23:59 23:59 23:59 Intake Total 300 2220 490 Output Total 1200 1250 Balance 300 1020 -760 <Fadumo Murcia LABOR COMMISSIONER - Last Filed: 05/02/25 11:13> Meds/Results Medications: Active Medications Generic Name Dose Route Start Last Admin Trade Name Freq PRN Reason Stop Dose Admin Acetaminophen 650 mg 04/30/25 21:12 Acetaminophen 325 Mg Tablet PO Q4H PRN Mild Pain (1-3) or Fever Amiodarone HCl 200 mg 05/01/25 08:00 05/02/25 09:02 Amiodarone Hcl 200 Mg Tablet PO 200 mg DAILY@0800 VICTORIANO Administration Apixaban 5 mg 05/01/25 09:00 05/02/25 09:03 Apixaban 5 Mg Tablet PO 5 mg Q12HR VICTORIANO Administration Atorvastatin Calcium 80 mg 05/01/25 21:00 05/01/25 21:30 Atorvastatin 40 Mg Tablet PO 80 mg HS VICTORIANO Administration Clopidogrel Bisulfate 75 mg 05/01/25 09:00 05/02/25 09:02 Clopidogrel Bisulfate 75 Mg Tablet PO 75 mg QAM VICTORIANO Administration Dextrose 12.5 gm 04/30/25 21:12 Dextrose 50% 25 Gm/50 Ml Syringe IV PUSH PRN PRN Hypoglycemia Protocol Empagliflozin 10 mg 05/02/25 09:00 05/02/25 09:02 Empagliflozin 10 Mg Tablet PO 10 mg DAILY VICTORIANO Administration Furosemide 40 mg 05/01/25 09:00 05/02/25 09:03 Furosemide Inj 40 Mg/4 Ml Vial IV PUSH 40 mg Q12HR VICTORIANO Administration Glucagon 1 mg 04/30/25 21:12 Glucagon For Inj 1 Mg Vial IM PRN PRN Hypoglycemia Protocol Glucose 15 gm 04/30/25 21:12 Glucose Oral Gel 15 Gm Of Glucse In 37.5 Gm Tube PO PRN PRN Hypoglycemia Protocol Dextrose 1,000 mls @ 100 mls/hr 04/30/25 21:12 Dextrose 5% 1,000 Ml IVPB PRN PRN Hypoglycemia Protocol Melatonin 5 mg 05/01/25 21:00 05/01/25 21:30 Melatonin 5 Mg Tablet PO 5 mg HS VICTORIANO Administration Metoprolol Succinate 25 mg 05/01/25 09:00 05/02/25 09:03 Metoprolol Succinate Ext Rel 25 Mg Tabcr PO 25 mg QAM VICTORIANO Administration Sacubitril/Valsartan 1 tab 05/01/25 09:00 05/02/25 09:03 Sacubitril/Valsartan 24-26 Mg Tablet PO 1 tab Q12HR VICTORIANO Administration <Fadumo Murcia APRN - Last Filed: 05/02/25 11:13> Radiology Results: ITS Impressions Chest X-Ray 04/30/25 17:07 Impression: CHF with superimposed probable pneumonia <Fadumo Murcia APRN - Last Filed: 05/02/25 11:13> Labs Labs: Laboratory Results - last 24 hr 05/02/25 08:02 WBC 4.9 RBC 3.86 L Hgb 12.4 Hct 39.7 MCV 102.8 H D MCH 32.1 MCHC 31.2 L RDW 16.2 H Plt Count 184 MPV 11.9 H Immature Gran % (Auto) 2.1 H Neut % (Auto) 73.5 H Lymph % (Auto) 12.0 L [place] % (Auto) 9.3 H Eos % (Auto) 2.1 Baso % (Auto) 1.0 Lymph # (Auto) 0.58 L [place] # (Auto) 0.5 Eos # (Auto) 0.1 Baso # (Auto) 0.1 Abs Immat Gran (auto) 0.10 H Absolute Neuts (auto) 3.6 Absolute Nucleated RBC 0.000 Nucleated RBC % 0.0 Sodium 140 Potassium 3.6 Chloride 106 Carbon Dioxide 24 Anion Gap 10 BUN 48 H Creatinine 1.15 H Estim Creat Clear Calc 32 Estimated GFR 46 L Glucose 118 H Calcium 9.1 Total Bilirubin 0.7 AST 40 H ALT 38 H Alkaline Phosphatase 105 Total Protein 6.2 L Albumin 3.8 <Fadumo Murcia APRN - Last Filed: 05/02/25 11:13> Please be advised this is a medical document. It is intended for [id number] communication. It is written in medical language and may contain unfamiliar abbreviations or verbiage. Medical documents are intended to carry relevant information, facts as evident, and the clinical opinion of the practitioner at the time of the encounter. This report may have been done utilizing a voice recognition system. Attempts have been made to correct errors. However, there may be uncorrected grammatical, spelling, and recognition errors present. The file time of this note does not necessarily represent the time the patient was seen. Report Initialized date/time: [facility] [facility] 05/02/25 / 1105 Electronically signed by: [facility] 05/02/25 1113 Bailey Carranza MD 05/02/25 1123
--- NOTE | 2025-05-02 11:42 | P.DS_ITS ---
DS: Admitting Diagnosis Discharge Date 05/02/2025 Admitting Diagnosis Acute CHF DS: Discharge Diagnosis Discharge Diagnosis (1) Acute CHF (congestive heart failure): Qualifiers: Heart failure type: systolic Qualified Code(s): I50.21 - Acute systolic (congestive) heart failure Code(s): I50.9 - Heart failure, unspecified Status: Acute Assessment and Plan: * Symptoms: Shortness of breath * Current medications: Lasix, Entresto * Supportive treatment * BNP: 56962 * EKG: bradycardia (54), sinus rhythm and non-specific ST changes (slight ST elevation of anterior leads, appears similar to 04/10) * Chest XR:CHF with superimposed probable pneumonia * Echo (03/23/25): EF 25-30%, apex/septum/anterior wall/distal inferior wall severely hypokinetic, moderate aortic stenosis, Dilated inferior vena cava with <50% collapse upon inspiration consistent with significantly elevated right atrial pressure * Monitor vital signs, I&Os, BUN/creatinine, daily weights, neuro status and patient is a fall risk * Monitor serum electrolytes, Keep serum Potassium>4 and serum Magnesium>2 and CBC * Cardio consult * IV diuresis with Lasix 40 mg b.i.d. * TTE to evaluate LV VS * Continue anticoagulation Eliquis, amiodarone, clopidogrel, atorvastatin * Continue Entresto, Add empagliflozin 10 mg daily * Once she is euvolemic, recommend staged PCI to her 70% proximal ramus intermediate stenosis to achieve complete revascularization post STEMI (2) Ischemic cardiomyopathy: Code(s): I25.5 - Ischemic cardiomyopathy Status: Acute Assessment and Plan: * See plan above (3) Elevated troponin: Code(s): R79.89 - Other specified abnormal findings of blood chemistry Status: Acute Assessment and Plan: * Likely secondary to demand ischemia * EKG not suggestive of ischemia (4) Hypertension: Qualifiers: Hypertension type: primary hypertension Qualified Code(s): I10 - Essential (primary) hypertension Code(s): I10 - Essential (primary) hypertension Status: Acute Assessment and Plan: * Patient's blood pressure was reviewed on 05/01 * Blood pressure remains well controlled. * Will continue current medications. (5) Hyperlipidemia: Qualifiers: Hyperlipidemia type: pure hypercholesterolemia Qualified Code(s): E78.00 - Pure hypercholesterolemia, unspecified Code(s): E78.5 - Hyperlipidemia, unspecified Status: Acute Assessment and Plan: * Continue atorvastatin (6) Coronary artery disease: Code(s): I25.10 - Atherosclerotic heart disease of [place] coronary artery without angina pectoris Status: Acute Assessment and Plan: * Continue at-home medications (7) Atrial fibrillation: Code(s): I48.91 - Unspecified atrial fibrillation Status: Acute Assessment and Plan: * Continue anticoagulation with Eliquis DS: Summary Hospital Course Reason for hospitalization: Shortness of breath Hospital Course: Extremely anxious but pleasant 74-year-old female with a past medical history of tobacco abuse with recent tobacco cessation, recent STEMI 03/22/2025 with 2 drug-eluting stents placed to the LAD and subsequent ischemic cardiomyopathy with EF of, 25-30% and complicated by post ischemia paroxysmal atrial fibrillation who presented to the ER with bilateral lower extremity swelling and increasing shortness of breath. She denies increased dyspnea on exertion but has noticed significant orthopnea. She reports that is been difficult for to sleep due to orthopnea. She had been instructed by the nurse practitioner from the [facility] operator service to decrease her Lasix to every other day. But the patient stated that when she did try to do that she became more short of breath. Subsequently she has continued her daily 20 mg of Lasix unchanged. She has been diligent about avoiding extra salt and reading food labels. She reports that she has lost about a lb since her UT in March because food just does not taste right. Despite this she has had some increased abdominal distension. She has been having normal bowel movements. She has also cut back on a large number of foods and she feels like she cannot make food that is palatable due to dietary restrictions. She even reports that she is avoiding cheese, all continent, and breading on food. She has not been eating any canned vegetables, soups or frozen meals. She denies having any chest pain. She reports that her UT symptoms involved squeezing sensation in her throat and diaphoresis she has not had recurrence of these symptoms either. She reports that she has had an intermittent cough since her UT. Cough seems to be worse when she lays down. She thinks that part this may be due to sinuses in postnasal drip. But it sounds like the cough may also be cardiac in nature because it worsened just prior to her last hospitalization for CHF exacerbation. She denies any fevers or chills. She denies any recent ill contacts. She is frustrated in anxious to get back to her very active lifestyle that she had previously. She states that she quit smoking when she had her UT. She has not taken the Chantix that was prescribed because she is afraid of side effects. But she has no intention of starting smoking again. Status at Discharge Functional status at discharge: independent ambulation Overall status at discharge: patient is back to baseline Time Spent with Patient Time attestation: Total time spent providing and/or coordinating discharge services: 33 Exam Narrative: Weight 55.7 kg Const: Other: Anxious but no physical acute distress, appears older than stated age HENMT: Other: Mucous membranes are moist, no oral pharyngeal erythema, no scleral icterus, no conjunctival pallor Neck: Other: JVD noted, no lymphadenopathy Resp: Other: Crackles bilateral bases right greater than left Cardio: Other: Regular rate, regular rhythm, JVD noted, 2/6 systolic murmur GI: Other: Minimally distended, soft, nontender Skin: Other: Tanned, non jaundice Neuro: Other: Alert oriented, speech is clear, no facial asymmetry, no localizing neurologic deficits noted, normal gait Extrem: Other: Trace edema to bilateral ankles and feet, 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 Psych: Other: Markedly anxious but pleasant and cooperative, good judgment and insight DS: Data Data Completed and Pending Labs on day of discharge: Labs from last 24 hours 05/02/25 08:02 WBC 4.9 RBC 3.86 L Hgb 12.4 Hct 39.7 MCV 102.8 H D MCH 32.1 MCHC 31.2 L RDW 16.2 H Plt Count 184 MPV 11.9 H Immature Gran % (Auto) 2.1 H Neut % (Auto) 73.5 H Lymph % (Auto) 12.0 L [place] % (Auto) 9.3 H Eos % (Auto) 2.1 Baso % (Auto) 1.0 Lymph # (Auto) 0.58 L [place] # (Auto) 0.5 Eos # (Auto) 0.1 Baso # (Auto) 0.1 Abs Immat Gran (auto) 0.10 H Absolute Neuts (auto) 3.6 Absolute Nucleated RBC 0.000 Nucleated RBC % 0.0 Sodium 140 Potassium 3.6 Chloride 106 Carbon Dioxide 24 Anion Gap 10 BUN 48 H Creatinine 1.15 H Estim Creat Clear Calc 32 Estimated GFR 46 L Glucose 118 H Calcium 9.1 Total Bilirubin 0.7 AST 40 H ALT 38 H Alkaline Phosphatase 105 Total Protein 6.2 L Albumin 3.8 Discharge Plan Discharge Attending physician on discharge: Niki Rubin Consulting providers: Beck Bassett; Bailey Carranza Discharging Clinician: Beck Bassett Anticipated Discharge Date/Time: 05/02/25 11:40 Patient Disposition: Home Activity: no straining Diet: heart healthy Discharge Instructions: Discharge disposition: Home Take medications as prescribed. Start taking Lasix 40 mg daily. We will also add empagliflozin 10mg to be taken daily. Follow-up with your M[facility] regarding further management of these medications. Monitor blood pressures Take caution while standing, rising, or moving Change positions slowly taking a break between each position change If you standing feel dizzy sit back down and take a break Encouraged to continue with yearly vaccinations Return to the emergency department if he developed sudden shortness of breath, chest pain, nausea, vomiting, upset stomach or intractable diarrhea Return to the emergency department if you develop fever greater than 101.5 Follow-up with the primary care physician within 1-2 weeks Thank you for [facility] for your healthcare needs Patient Instructions: Antibiotic Form Patient Language: Sammarinese Stand Alone Forms: General Discharge Information Follow-up/Referrals: Jeremy,MD Praveena [Primary Care Provider, Unknown] Discharge Medications: New furosemide 40 mg Tablet 40 mg PO DAILY 31 Days Qty: 31 0RF Jardiance 10 mg Tablet 10 mg PO DAILY 31 Days Qty: 31 0RF Continued amiodarone [Pacerone] 200 mg Tablet 200 mg PO DAILY@0800 Qty: 30 0RF metoprolol succinate [Toprol XL] 25 mg Tablet Extended Release 24 Hr 25 mg PO QAM Qty: 30 0RF atorvastatin 40 mg Tablet 80 mg PO HS Qty: 180 3RF clopidogrel 75 mg Tablet 75 mg PO QAM 30 Days Qty: 30 11RF sacubitril-valsartan [Entresto] 24-26 mg Tablet 1 tab PO Q12HR 30 Days Qty: 60 0RF Eliquis 5 mg tablet 5 mg PO BID Qty: 60 3RF Discontinued furosemide [Lasix] 40 mg tablet 20 mg PO DAILY Qty: 10 0RF varenicline tartrate [Chantix Starting Month Box] 0.5 mg (11)- 1 mg (42) tablets,dose pack See Rx Instructions .ROUTE .COMPLEX Qty: 53 0RF Rx Instructions: orally per package directions Date of admission: 05/01/25 07:34 Primary Care Provider: Jeremy,Praveena Admitting Provider: Dora Rendon Attending physician on admission: Dora Rendon Condition: Stable Quality VTE Prophylaxis VTE prophylaxis: pharmacologic ordered (Continue home Eliquis)
--- NOTE | 2025-05-02 11:57 | P.PNIM_ITS ---
Progress Note: A&P Assessment and Plan (1) Acute CHF (congestive heart failure): Qualifiers: Heart failure type: systolic Qualified Code(s): I50.21 - Acute systolic (congestive) heart failure Code(s): I50.9 - Heart failure, unspecified Status: Acute Assessment and Plan: * Symptoms: Shortness of breath * Current medications: Lasix, Entresto * Supportive treatment * BNP: 77183 * EKG: bradycardia (54), sinus rhythm and non-specific ST changes (slight ST elevation of anterior leads, appears similar to 04/10) * Chest XR:CHF with superimposed probable pneumonia * Echo (03/23/25): EF 25-30%, apex/septum/anterior wall/distal inferior wall severely hypokinetic, moderate aortic stenosis, Dilated inferior vena cava with <50% collapse upon inspiration consistent with significantly elevated right atrial pressure * Monitor vital signs, I&Os, BUN/creatinine, daily weights, neuro status and patient is a fall risk * Monitor serum electrolytes, Keep serum Potassium>4 and serum Magnesium>2 and CBC * Cardio consult * IV diuresis with Lasix 40 mg b.i.d. * TTE to evaluate LV VS * Continue anticoagulation Eliquis, amiodarone, clopidogrel, atorvastatin * Continue Entresto, Add empagliflozin 10 mg daily * Originally planned for discharge, however Cardiology planning on Catheterization tomorrow (2) Ischemic cardiomyopathy: Code(s): I25.5 - Ischemic cardiomyopathy Status: Acute Assessment and Plan: * See plan above (3) Elevated troponin: Code(s): R79.89 - Other specified abnormal findings of blood chemistry Status: Acute Assessment and Plan: * Likely secondary to demand ischemia * EKG not suggestive of ischemia (4) Abnormal chest xray: Code(s): R93.89 - Abnormal findings on diagnostic imaging of other specified body structures Status: Acute Assessment and Plan: * Chest XR: CHF with superimposed probable pneumonia * Also presented with cough, however less likely pneumonia and more likely 2/2 fluid overload * Afebrile, no O2 supplemenation requirement * Lung vuong CTA, no leukocytosis (5) Hypertension: Qualifiers: Hypertension type: primary hypertension Qualified Code(s): I10 - Essential (primary) hypertension Code(s): I10 - Essential (primary) hypertension Status: Acute Assessment and Plan: * Patient's blood pressure was reviewed on 05/01 * Blood pressure remains well controlled. * Will continue current medications. (6) Hyperlipidemia: Qualifiers: Hyperlipidemia type: pure hypercholesterolemia Qualified Code(s): E78.00 - Pure hypercholesterolemia, unspecified Code(s): E78.5 - Hyperlipidemia, unspecified Status: Acute Assessment and Plan: * Continue atorvastatin (7) Coronary artery disease: Code(s): I25.10 - Atherosclerotic heart disease of [place] coronary artery without angina pectoris Status: Acute Assessment and Plan: * Continue at-home medications (8) Atrial fibrillation: Code(s): I48.91 - Unspecified atrial fibrillation Status: Acute Assessment and Plan: * Continue anticoagulation with Eliquis Subjective Date/time seen: 05/02/25 11:57 Interval history: Extremely anxious but pleasant 74-year-old female with a past medical history of tobacco abuse with recent tobacco cessation, recent STEMI 03/22/2025 with 2 drug-eluting stents placed to the LAD and subsequent ischemic cardiomyopathy with EF of, 25-30% and complicated by post ischemia paroxysmal atrial fibrillation who presented to the ER with bilateral lower extremity swelling and increasing shortness of breath. 05/02/2025 Patient sitting comfortably in bed at time of exam. Denies any chest pain, shortness of breath, n/v or abd pain this am. Originally was planning for discharge today but Cardiology plans on catheterization tomorrow with hopeful discharge after that. Continue Lasix 40mg daily (changed to PO) and empagliflozin. Pt otherwise feeling well today. Blood cultures still pending. Review of Systems Review of Systems: 12 systems were reviewed with pertinent positives and negatives per HPI. Except as documented in the HPI, all other systems were reviewed and are negative. Exam Narrative: Weight 55.7 kg Const: Other: Anxious but no physical acute distress, appears older than stated age HENMT: Other: Mucous membranes are moist, no oral pharyngeal erythema, no scleral icterus, no conjunctival pallor Neck: Other: JVD noted, no lymphadenopathy Resp: Other: Crackles bilateral bases right greater than left Cardio: Other: Regular rate, regular rhythm, JVD noted, 2/6 systolic murmur GI: Other: Minimally distended, soft, nontender Skin: Other: Tanned, non jaundice Neuro: Other: Alert oriented, speech is clear, no facial asymmetry, no localizing neurologic deficits noted, normal gait Extrem: Other: Trace edema to bilateral ankles and feet, 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 Psych: Other: Markedly anxious but pleasant and cooperative, good judgment and insight Objective Data Vital Signs Vital Signs: Vital Signs - 24 hr 05/01/25 12:00 05/01/25 14:00 05/01/25 16:00 Temperature 98.0 F Pulse Rate 56 L 61 62 Respiratory Rate 18 Blood Pressure 116/72 Pulse Oximetry 95 Oxygen Delivery 05/01/25 21:40 05/02/25 00:00 05/02/25 04:00 Temperature 98.6 F Pulse Rate 60 62 57 L Respiratory Rate 20 Blood Pressure 100/57 L Pulse Oximetry 95 Oxygen Delivery 05/02/25 06:00 05/02/25 08:00 05/02/25 08:00 Temperature 98.3 F Pulse Rate 69 69 58 L Respiratory Rate 20 20 Blood Pressure 110/66 Pulse Oximetry 95 95 Oxygen Delivery Room Air 05/02/25 09:02 05/02/25 09:03 Temperature Pulse Rate 69 69 Respiratory Rate Blood Pressure Pulse Oximetry Oxygen Delivery Intake/Output Intake/Output: Intake & Output 04/29/25 04/30/25 05/01/25 05/02/25 23:59 23:59 23:59 23:59 Intake Total 300 2220 490 Output Total 1200 1250 Balance 300 1020 -760 Meds/Results Medications: Active Medications Generic Name Dose Route Start Last Admin Trade Name Freq PRN Reason Stop Dose Admin Acetaminophen 650 mg 04/30/25 21:12 Acetaminophen 325 Mg Tablet PO Q4H PRN Mild Pain (1-3) or Fever Amiodarone HCl 200 mg 05/01/25 08:00 05/02/25 09:02 Amiodarone Hcl 200 Mg Tablet PO 200 mg DAILY@0800 VICTORIANO Administration Apixaban 5 mg 05/01/25 09:00 05/02/25 09:03 Apixaban 5 Mg Tablet PO 5 mg On Hold: 05/02/25 11:52 Q12HR VICTORIANO Administration Atorvastatin Calcium 80 mg 05/01/25 21:00 05/01/25 21:30 Atorvastatin 40 Mg Tablet PO 80 mg HS VICTORIANO Administration Clopidogrel Bisulfate 75 mg 05/01/25 09:00 05/02/25 09:02 Clopidogrel Bisulfate 75 Mg Tablet PO 75 mg QAM VICTORIANO Administration Dextrose 12.5 gm 04/30/25 21:12 Dextrose 50% 25 Gm/50 Ml Syringe IV PUSH PRN PRN Hypoglycemia Protocol Empagliflozin 10 mg 05/02/25 09:00 05/02/25 09:02 Empagliflozin 10 Mg Tablet PO 10 mg DAILY VICTORIANO Administration Furosemide 40 mg 05/03/25 09:00 Furosemide 40 Mg Tablet PO DAILY VICTORIANO Glucagon 1 mg 04/30/25 21:12 Glucagon For Inj 1 Mg Vial IM PRN PRN Hypoglycemia Protocol Glucose 15 gm 04/30/25 21:12 Glucose Oral Gel 15 Gm Of Glucse In 37.5 Gm Tube PO PRN PRN Hypoglycemia Protocol Dextrose 1,000 mls @ 100 mls/hr 04/30/25 21:12 Dextrose 5% 1,000 Ml IVPB PRN PRN Hypoglycemia Protocol Melatonin 5 mg 05/01/25 21:00 05/01/25 21:30 Melatonin 5 Mg Tablet PO 5 mg HS VICTORIANO Administration Metoprolol Succinate 25 mg 05/01/25 09:00 05/02/25 09:03 Metoprolol Succinate Ext Rel 25 Mg Tabcr PO 25 mg QAM VICTORIANO Administration Sacubitril/Valsartan 1 tab 05/01/25 09:00 05/02/25 09:03 Sacubitril/Valsartan 24-26 Mg Tablet PO 1 tab Q12HR VICTORIANO Administration Radiology Results: ITS Impressions Chest X-Ray 04/30/25 17:07 Impression: CHF with superimposed probable pneumonia Labs Labs: Laboratory Results - last 24 hr 05/02/25 08:02 WBC 4.9 RBC 3.86 L Hgb 12.4 Hct 39.7 MCV 102.8 H D MCH 32.1 MCHC 31.2 L RDW 16.2 H Plt Count 184 MPV 11.9 H Immature Gran % (Auto) 2.1 H Neut % (Auto) 73.5 H Lymph % (Auto) 12.0 L [place] % (Auto) 9.3 H Eos % (Auto) 2.1 Baso % (Auto) 1.0 Lymph # (Auto) 0.58 L [place] # (Auto) 0.5 Eos # (Auto) 0.1 Baso # (Auto) 0.1 Abs Immat Gran (auto) 0.10 H Absolute Neuts (auto) 3.6 Absolute Nucleated RBC 0.000 Nucleated RBC % 0.0 Sodium 140 Potassium 3.6 Chloride 106 Carbon Dioxide 24 Anion Gap 10 BUN 48 H Creatinine 1.15 H Estim Creat Clear Calc 32 Estimated GFR 46 L Glucose 118 H Calcium 9.1 Total Bilirubin 0.7 AST 40 H ALT 38 H Alkaline Phosphatase 105 Total Protein 6.2 L Albumin 3.8 Quality VTE Prophylaxis VTE prophylaxis: pharmacologic ordered (Continue home Eliquis)
[2025-05-02] MEDS: ATORVASTATIN 40 MG TABLET 80 MG PO (20:26)
[2025-05-02] MEDS: MELATONIN 5 MG TABLET PO (20:27)
[2025-05-03] VITALS (12 sets, daily range): BP systolic 101–136; BP diastolic 56–78; PULSE 48–60; RESP 18; TEMP 36.3–36.6; O2SAT 96–100
--- NOTE | 2025-05-03 08:09 | PM.PNCARD ---
Progress Note: A&P Assessment and Plan (1) Acute on chronic systolic heart failure: Code(s): I50.23 - Acute on chronic systolic (congestive) heart failure Status: Acute (2) Ischemic cardiomyopathy: Code(s): I25.5 - Ischemic cardiomyopathy Status: Acute (3) Elevated troponin: Code(s): R79.89 - Other specified abnormal findings of blood chemistry Status: Acute (4) Coronary artery disease: Code(s): I25.10 - Atherosclerotic heart disease of [place] coronary artery without angina pectoris Status: Acute Plan Diagnosis: STEMI on 03/22/2025 status post PCI to proximal LAD with 2 drug-eluting stents (she she was also noted to have 70% stenosis of proximal ramus intermedius, 50% stenosis of ostial RCA) CAD-as above Ischemic cardiomyopathy with LVEF 25-30%, repeat echo demonstrates EF of 30-35% Acute on chronic systolic heart failure Paroxysmal atrial fibrillation Tobacco abuse with recent tobacco cessation Hyperlipidemia Hypertension Plan: She appears euvolemic by exam today. Hold Lasix Check ins and outs, weight daily. Check renal function daily Check and replace electrolytes to keep potassium greater than 4 and magnesium greater than 2 Continue anticoagulation with Eliquis for AFib Continue amiodarone On Clopidogrel and Eliquis given recent primary PCI in 03/2025. Holding Eliquis for staged PCI to ramus tomorrow Continue atorvastatin GDMT for ischemic cardiomyopathy. No beta-jacki given bradycardia. Continue Entresto and empagliflozin Staged PCI to 70% proximal ramus intermedius to achieve stage complete revascularization post recent AMI. Risks and benefits discussed with patient and she is willing to proceed. Keep NPO at midnight Plan discussed with patient and she is agreeable Subjective Date/time seen: 05/03/25 08:09 Interval history: Extremely anxious but pleasant 74-year-old female with a past medical history of tobacco abuse with recent tobacco cessation, recent STEMI 03/22/2025 with 2 drug-eluting stents placed to the LAD and subsequent ischemic cardiomyopathy with EF of, 25-30% and complicated by post ischemia paroxysmal atrial fibrillation who presented to the ER with bilateral lower extremity swelling and increasing shortness of breath. Interval history: No chest pain or shortness of breath. Review of Systems Review of Systems: All systems reviewed & are unremarkable except as noted in HPI and below (HPI ) Exam Narrative: General: Alert oriented x3, no acute distress Neck: Supple, no JVD Chest: Bilaterally clear to auscultation, no rales or rhonchi Cardiac: S1, S2 +, regular rate, regular rhythm, no murmurs or rubs Extremities: No pedal edema, no skin rash Neurologic: Alert and oriented x3, no focal neurological deficits Objective Data Vital Signs Vital Signs: Vital Signs - 24 hr 05/02/25 09:02 05/02/25 09:03 05/02/25 12:00 Temperature Pulse Rate 69 69 53 L Respiratory Rate Blood Pressure Pulse Oximetry 05/02/25 14:00 05/02/25 16:00 05/02/25 20:00 Temperature 36.5 C Pulse Rate 56 L 62 55 L Respiratory Rate 18 Blood Pressure 95/59 L Pulse Oximetry 93 05/02/25 22:00 05/03/25 00:00 05/03/25 04:00 Temperature 36.1 C L Pulse Rate 54 L 53 L 49 L Respiratory Rate 18 Blood Pressure 108/58 L Pulse Oximetry 97 05/03/25 06:00 Temperature 36.3 C L Pulse Rate 51 L Respiratory Rate 18 Blood Pressure 136/78 Pulse Oximetry 96 Intake/Output Intake/Output: Intake & Output 04/30/25 05/01/25 05/02/25 05/03/25 23:59 23:59 23:59 23:59 Intake Total 300 2220 1330 300 Output Total 1200 1250 1000 Balance 300 1020 80 -700 Meds/Results Medications: Active Medications Generic Name Dose Route Start Last Admin Trade Name Freq PRN Reason Stop Dose Admin Acetaminophen 650 mg 04/30/25 21:12 Acetaminophen 325 Mg Tablet PO Q4H PRN Mild Pain (1-3) or Fever Amiodarone HCl 200 mg 05/01/25 08:00 05/02/25 09:02 Amiodarone Hcl 200 Mg Tablet PO 200 mg DAILY@0800 VICTORIANO Administration Apixaban 5 mg 05/01/25 09:00 05/02/25 09:03 Apixaban 5 Mg Tablet PO 5 mg On Hold: 05/02/25 11:52 Q12HR VICTORIANO Administration Atorvastatin Calcium 80 mg 05/01/25 21:00 05/02/25 20:26 Atorvastatin 40 Mg Tablet PO 80 mg HS VICTORIANO Administration Clopidogrel Bisulfate 75 mg 05/01/25 09:00 05/02/25 09:02 Clopidogrel Bisulfate 75 Mg Tablet PO 75 mg QAM VICTORIANO Administration Dextrose 12.5 gm 04/30/25 21:12 Dextrose 50% 25 Gm/50 Ml Syringe IV PUSH PRN PRN Hypoglycemia Protocol Empagliflozin 10 mg 05/02/25 09:00 05/02/25 09:02 Empagliflozin 10 Mg Tablet PO 10 mg DAILY VICTORIANO Administration Furosemide 40 mg 05/03/25 09:00 Furosemide 40 Mg Tablet PO DAILY VICTORIANO Glucagon 1 mg 04/30/25 21:12 Glucagon For Inj 1 Mg Vial IM PRN PRN Hypoglycemia Protocol Glucose 15 gm 04/30/25 21:12 Glucose Oral Gel 15 Gm Of Glucse In 37.5 Gm Tube PO PRN PRN Hypoglycemia Protocol Dextrose 1,000 mls @ 100 mls/hr 04/30/25 21:12 Dextrose 5% 1,000 Ml IVPB PRN PRN Hypoglycemia Protocol Melatonin 5 mg 05/01/25 21:00 05/02/25 20:27 Melatonin 5 Mg Tablet PO 5 mg HS VICTORIANO Administration Metoprolol Succinate 25 mg 05/01/25 09:00 05/02/25 09:03 Metoprolol Succinate Ext Rel 25 Mg Tabcr PO 25 mg QAM VICTORIANO Administration Sacubitril/Valsartan 1 tab 05/01/25 09:00 05/02/25 20:26 Sacubitril/Valsartan 24-26 Mg Tablet PO 1 tab Q12HR VICTORIANO Administration Radiology Results: ITS Impressions Chest X-Ray 04/30/25 17:07 Impression: CHF with superimposed probable pneumonia Labs Labs: Laboratory Results - last 24 hr 05/02/25 08:02 WBC 4.9 RBC 3.86 L Hgb 12.4 Hct 39.7 MCV 102.8 H D MCH 32.1 MCHC 31.2 L RDW 16.2 H Plt Count 184 MPV 11.9 H Immature Gran % (Auto) 2.1 H Neut % (Auto) 73.5 H Lymph % (Auto) 12.0 L [place] % (Auto) 9.3 H Eos % (Auto) 2.1 Baso % (Auto) 1.0 Lymph # (Auto) 0.58 L [place] # (Auto) 0.5 Eos # (Auto) 0.1 Baso # (Auto) 0.1 Abs Immat Gran (auto) 0.10 H Absolute Neuts (auto) 3.6 Absolute Nucleated RBC 0.000 Nucleated RBC % 0.0 Sodium 140 Potassium 3.6 Chloride 106 Carbon Dioxide 24 Anion Gap 10 BUN 48 H Creatinine 1.15 H Estim Creat Clear Calc 32 Estimated GFR 46 L Glucose 118 H Calcium 9.1 Total Bilirubin 0.7 AST 40 H ALT 38 H Alkaline Phosphatase 105 Total Protein 6.2 L Albumin 3.8
--- NOTE | 2025-05-03 08:18 | P.PNIM_ITS ---
Progress Note: A&P Assessment and Plan (1) Acute CHF (congestive heart failure): Qualifiers: Heart failure type: systolic Qualified Code(s): I50.21 - Acute systolic (congestive) heart failure Code(s): I50.9 - Heart failure, unspecified Status: Acute Assessment and Plan: -with history of ischemic cardiomyopathy -Symptoms: Shortness of breath -Current medications: Lasix, Entresto -BNP: 77929 -EKG: bradycardia (54), sinus rhythm and non-specific ST changes (slight ST elevation of anterior leads, appears similar to 04/10) -CXR:CHF with superimposed probable pneumonia -Echo (03/23/25): EF 25-30%, apex/septum/anterior wall/distal inferior wall severely hypokinetic, moderate aortic stenosis - repeat echo 05/01 with EF 30-35% -Monitor serum electrolytes, Keep serum Potassium>4 and serum Magnesium>2 and CBC -Cardio consulted - s/p IV diuresis with good response. Transitioned back to PO lasix. -Continue Entresto, Add empagliflozin 10 mg daily. Not on beta-jacki due to bradycardia. -Originally planned for discharge, however Cardiology planning on Catheterization tomorrow (2) Coronary artery disease: Code(s): I25.10 - Atherosclerotic heart disease of [place] coronary artery without angina pectoris Status: Acute Assessment and Plan: - STEMI on 03/22/2025 status post PCI to proximal LAD with 2 drug-eluting stents (she she was also noted to have 70% stenosis of proximal ramus intermedius, 50% stenosis of ostial RCA) - continue Plavix, atorvastatin - cardio following - Staged PCI to 70% proximal ramus intermedius 05/04 to achieve stage complete revascularization post recent AMI. Holding Eliquis. - transfer to [facility] (3) Elevated troponin: Code(s): R79.89 - Other specified abnormal findings of blood chemistry Status: Acute Assessment and Plan: -Likely secondary to demand ischemia -EKG not suggestive of ischemia - troponin trended down (4) Abnormal chest xray: Code(s): R93.89 - Abnormal findings on diagnostic imaging of other specified body structures Status: Acute Assessment and Plan: -Chest XR: CHF with superimposed probable pneumonia -Also presented with cough, however less likely pneumonia as afebrile without leukocytosis, no hypoxia. More likely 2/2 fluid overload, management as above. (5) Hypertension: Qualifiers: Hypertension type: primary hypertension Qualified Code(s): I10 - Essential (primary) hypertension Code(s): I10 - Essential (primary) hypertension Status: Acute Assessment and Plan: -Blood pressure remains well controlled. -Will continue current medications. (6) Hyperlipidemia: Qualifiers: Hyperlipidemia type: pure hypercholesterolemia Qualified Code(s): E78.00 - Pure hypercholesterolemia, unspecified Code(s): E78.5 - Hyperlipidemia, unspecified Status: Acute Assessment and Plan: -Continue atorvastatin (7) Atrial fibrillation: Code(s): I48.91 - Unspecified atrial fibrillation Status: Acute Assessment and Plan: -Continue anticoagulation with Eliquis - not on beta-jacki due to bradycardia Subjective Date/time seen: 05/03/25 08:18 Interval history: Patient seen and examined at bedside. SOB has improved. Review of Systems Review of Systems: All systems reviewed & are unremarkable except as noted in HPI and below Exam Narrative: General: NAD, frail Eyes: EOMI ENT: neck supple Cardiovascular: Regular rate and rhythm Respiratory: Clear to auscultation, respirations even and unlabored on RA Gastrointestinal: Soft, non tender Genitourinary: no suprapubic tenderness Musculoskeletal: No edema Skin: warm, dry Neuro: Alert. Psych:anxious Objective Data Vital Signs Vital Signs: Vital Signs - 24 hr 05/02/25 09:02 05/02/25 09:03 05/02/25 12:00 Temperature Pulse Rate 69 69 53 L Respiratory Rate Blood Pressure Pulse Oximetry 05/02/25 14:00 05/02/25 16:00 05/02/25 20:00 Temperature 97.7 F Pulse Rate 56 L 62 55 L Respiratory Rate 18 Blood Pressure 95/59 L Pulse Oximetry 93 05/02/25 22:00 05/03/25 00:00 05/03/25 04:00 Temperature 97.0 F L Pulse Rate 54 L 53 L 49 L Respiratory Rate 18 Blood Pressure 108/58 L Pulse Oximetry 97 05/03/25 06:00 Temperature 97.3 F L Pulse Rate 51 L Respiratory Rate 18 Blood Pressure 136/78 Pulse Oximetry 96 Intake/Output Intake/Output: Intake & Output 04/30/25 05/01/25 05/02/25 05/03/25 23:59 23:59 23:59 23:59 Intake Total 300 2220 1330 300 Output Total 1200 1250 1000 Balance 300 1020 80 -700 Meds/Results Medications: Active Medications Generic Name Dose Route Start Last Admin Trade Name Pito PRN Reason Stop Dose Admin Acetaminophen 650 mg 04/30/25 21:12 Acetaminophen 325 Mg Tablet PO Q4H PRN Mild Pain (1-3) or Fever Amiodarone HCl 200 mg 05/01/25 08:00 05/02/25 09:02 Amiodarone Hcl 200 Mg Tablet PO 200 mg DAILY@0800 VICTORIANO Administration Apixaban 5 mg 05/01/25 09:00 05/02/25 09:03 Apixaban 5 Mg Tablet PO 5 mg On Hold: 05/02/25 11:52 Q12HR VICTORIANO Administration Atorvastatin Calcium 80 mg 05/01/25 21:00 05/02/25 20:26 Atorvastatin 40 Mg Tablet PO 80 mg HS VICTORIANO Administration Clopidogrel Bisulfate 75 mg 05/01/25 09:00 05/02/25 09:02 Clopidogrel Bisulfate 75 Mg Tablet PO 75 mg QAM VICTORIANO Administration Dextrose 12.5 gm 04/30/25 21:12 Dextrose 50% 25 Gm/50 Ml Syringe IV PUSH PRN PRN Hypoglycemia Protocol Empagliflozin 10 mg 05/02/25 09:00 05/02/25 09:02 Empagliflozin 10 Mg Tablet PO 10 mg DAILY VICTORIANO Administration Furosemide 40 mg 05/03/25 09:00 Furosemide 40 Mg Tablet PO DAILY VICTORIANO Glucagon 1 mg 04/30/25 21:12 Glucagon For Inj 1 Mg Vial IM PRN PRN Hypoglycemia Protocol Glucose 15 gm 04/30/25 21:12 Glucose Oral Gel 15 Gm Of Glucse In 37.5 Gm Tube PO PRN PRN Hypoglycemia Protocol Dextrose 1,000 mls @ 100 mls/hr 04/30/25 21:12 Dextrose 5% 1,000 Ml IVPB PRN PRN Hypoglycemia Protocol Melatonin 5 mg 05/01/25 21:00 05/02/25 20:27 Melatonin 5 Mg Tablet PO 5 mg HS VICTORIANO Administration Metoprolol Succinate 25 mg 05/01/25 09:00 05/02/25 09:03 Metoprolol Succinate Ext Rel 25 Mg Tabcr PO 25 mg QAM VICTORIANO Administration Sacubitril/Valsartan 1 tab 05/01/25 09:00 05/02/25 20:26 Sacubitril/Valsartan 24-26 Mg Tablet PO 1 tab Q12HR VICTORIANO Administration Radiology Results: ITS Impressions Chest X-Ray 04/30/25 17:07 Impression: CHF with superimposed probable pneumonia Labs Labs: Laboratory Results - last 24 hr 05/02/25 08:02 WBC 4.9 RBC 3.86 L Hgb 12.4 Hct 39.7 MCV 102.8 H D MCH 32.1 MCHC 31.2 L RDW 16.2 H Plt Count 184 MPV 11.9 H Immature Gran % (Auto) 2.1 H Neut % (Auto) 73.5 H Lymph % (Auto) 12.0 L [place] % (Auto) 9.3 H Eos % (Auto) 2.1 Baso % (Auto) 1.0 Lymph # (Auto) 0.58 L [place] # (Auto) 0.5 Eos # (Auto) 0.1 Baso # (Auto) 0.1 Abs Immat Gran (auto) 0.10 H Absolute Neuts (auto) 3.6 Absolute Nucleated RBC 0.000 Nucleated RBC % 0.0 Sodium 140 Potassium 3.6 Chloride 106 Carbon Dioxide 24 Anion Gap 10 BUN 48 H Creatinine 1.15 H Estim Creat Clear Calc 32 Estimated GFR 46 L Glucose 118 H Calcium 9.1 Total Bilirubin 0.7 AST 40 H ALT 38 H Alkaline Phosphatase 105 Total Protein 6.2 L Albumin 3.8 Quality VTE Prophylaxis VTE prophylaxis: pharmacologic ordered (Continue home Eliquis)
[2025-05-03] MEDS: CLOPIDOGREL BISULFATE 75 MG TABLET PO (08:56)
[2025-05-03] MEDS: AMIODARONE HCL 200 MG TABLET PO (08:56)
[2025-05-03] MEDS: SACUBITRIL/VALSARTAN 24-26 MG TABLET 1 TAB PO ×2 (08:56→20:28)
[2025-05-03] MEDS: EMPAGLIFLOZIN 10 MG TABLET PO (08:56)
[2025-05-03] MEDS: FUROSEMIDE 40 MG TABLET PO (08:57)
--- NOTE | 2025-05-03 11:02 | PC.NURSE ---
This patient, Patience Marroquin, was received from [facility] on 05/03/25 at 0920. Patient/family oriented to unit policies and routines.
[2025-05-03] MEDS: ATORVASTATIN 40 MG TABLET 80 MG PO (20:27)
[2025-05-03] MEDS: MELATONIN 5 MG TABLET PO (20:28)
[2025-05-04] VITALS (19 sets, daily range): BP systolic 95–123; BP diastolic 49–92; PULSE 52–68; RESP 8–20; TEMP 36.1–36.9; O2SAT 94–100
--- NOTE | 2025-05-04 08:20 | PM.PNCARD ---
Progress Note: A&P Assessment and Plan (1) Acute on chronic systolic heart failure: Code(s): I50.23 - Acute on chronic systolic (congestive) heart failure Status: Acute (2) Elevated troponin: Code(s): R79.89 - Other specified abnormal findings of blood chemistry Status: Acute (3) Coronary artery disease: Code(s): I25.10 - Atherosclerotic heart disease of [place] coronary artery without angina pectoris Status: Acute Plan Diagnosis: STEMI on 03/22/2025 status post PCI to proximal LAD with 2 drug-eluting stents (she she was also noted to have 70% stenosis of proximal ramus intermedius, 50% stenosis of ostial RCA) CAD-as above Bradycardia-asymptomatic Ischemic cardiomyopathy with LVEF 25-30%, repeat echo demonstrates EF of 30-35% Acute on chronic systolic heart failure Paroxysmal atrial fibrillation Tobacco abuse with recent tobacco cessation Hyperlipidemia Hypertension Plan: She appears euvolemic by exam today. Hold Lasix Check ins and outs, weight daily. Check renal function daily Check and replace electrolytes to keep potassium greater than 4 and magnesium greater than 2 Continue anticoagulation with Eliquis for AFib Continue amiodarone On Clopidogrel and Eliquis given recent primary PCI in 03/2025. Holding Eliquis for staged PCI to ramus this morning Continue atorvastatin GDMT for ischemic cardiomyopathy. No beta-jacki given bradycardia. Continue Entresto and empagliflozin Staged PCI to 70% proximal ramus intermedius to achieve stage complete revascularization post recent AMI. Risks and benefits discussed with patient and she is willing to proceed Plan discussed with patient and she is agreeable Subjective Date/time seen: 05/04/25 08:20 Interval history: Extremely anxious but pleasant 74-year-old female with a past medical history of tobacco abuse with recent tobacco cessation, recent STEMI 03/22/2025 with 2 drug-eluting stents placed to the LAD and subsequent ischemic cardiomyopathy with EF of, 25-30% and complicated by post ischemia paroxysmal atrial fibrillation who presented to the ER with bilateral lower extremity swelling and increasing shortness of breath. Interval history: No chest pain or shortness of breath. She is NPO for PCI to ramus intermedius this morning. Review of Systems Review of Systems: All systems reviewed & are unremarkable except as noted in HPI and below (HPI ) Exam Narrative: General: Alert oriented x3, no acute distress Neck: Supple, no JVD Chest: Bilaterally clear to auscultation, no rales or rhonchi Cardiac: S1, S2 +, regular rate, regular rhythm, no murmurs or rubs Extremities: No pedal edema, no skin rash Neurologic: Alert and oriented x3, no focal neurological deficits Objective Data Vital Signs Vital Signs: Vital Signs - 24 hr 05/03/25 08:45 05/03/25 08:56 05/03/25 12:00 Temperature 36.5 C Pulse Rate 48 L 54 L Respiratory Rate 18 Blood Pressure 103/56 L Pulse Oximetry 100 Oxygen Delivery Room Air 05/03/25 12:00 05/03/25 12:00 05/03/25 14:00 Temperature Pulse Rate 56 L 51 L Respiratory Rate Blood Pressure Pulse Oximetry Oxygen Delivery Room Air 05/03/25 16:00 05/03/25 16:00 05/03/25 16:00 Temperature 36.4 C L Pulse Rate 48 L 57 L Respiratory Rate 18 Blood Pressure 107/76 Pulse Oximetry 96 Oxygen Delivery Room Air 05/03/25 18:00 05/03/25 19:53 05/03/25 20:00 Temperature 36.6 C Pulse Rate 60 56 L 54 L Respiratory Rate 18 Blood Pressure 101/58 L Pulse Oximetry 100 Oxygen Delivery 05/03/25 22:00 05/04/25 00:00 05/04/25 00:00 Temperature 36.9 C Pulse Rate 58 L 58 L 55 L Respiratory Rate 18 Blood Pressure 96/49 L Pulse Oximetry 94 Oxygen Delivery 05/04/25 02:00 05/04/25 04:00 05/04/25 04:00 Temperature 36.9 C Pulse Rate 55 L 61 52 L Respiratory Rate 18 Blood Pressure 109/65 Pulse Oximetry 96 Oxygen Delivery 05/04/25 05:59 05/04/25 07:53 Temperature 36.4 C L Pulse Rate 52 L 52 L Respiratory Rate 8 L Blood Pressure 123/72 Pulse Oximetry 99 Oxygen Delivery Intake/Output Intake/Output: Intake & Output 05/01/25 05/02/25 05/03/25 05/04/25 23:59 23:59 23:59 23:59 Intake Total 2220 1330 1377 120 Output Total 1200 1250 1000 Balance 1020 80 377 120 Meds/Results Medications: Active Medications Generic Name Dose Route Start Last Admin Trade Name Freq PRN Reason Stop Dose Admin Acetaminophen 650 mg 04/30/25 21:12 Acetaminophen 325 Mg Tablet PO Q4H PRN Mild Pain (1-3) or Fever Amiodarone HCl 200 mg 05/01/25 08:00 05/03/25 08:56 Amiodarone Hcl 200 Mg Tablet PO 200 mg DAILY@0800 VICTORIANO Administration Apixaban 5 mg 05/01/25 09:00 05/02/25 09:03 Apixaban 5 Mg Tablet PO 5 mg On Hold: 05/02/25 11:52 Q12HR VICTORIANO Administration Atorvastatin Calcium 80 mg 05/01/25 21:00 05/03/25 20:27 Atorvastatin 40 Mg Tablet PO 80 mg HS VICTORIANO Administration Clopidogrel Bisulfate 75 mg 05/01/25 09:00 05/03/25 08:56 Clopidogrel Bisulfate 75 Mg Tablet PO 75 mg QAM VICTORIANO Administration Dextrose 12.5 gm 04/30/25 21:12 Dextrose 50% 25 Gm/50 Ml Syringe IV PUSH PRN PRN Hypoglycemia Protocol Empagliflozin 10 mg 05/02/25 09:00 05/03/25 08:56 Empagliflozin 10 Mg Tablet PO 10 mg DAILY VICTORIANO Administration Furosemide 40 mg 05/03/25 09:00 05/03/25 08:57 Furosemide 40 Mg Tablet PO 40 mg DAILY VICTORIANO Administration Glucagon 1 mg 04/30/25 21:12 Glucagon For Inj 1 Mg Vial IM PRN PRN Hypoglycemia Protocol Glucose 15 gm 04/30/25 21:12 Glucose Oral Gel 15 Gm Of Glucse In 37.5 Gm Tube PO PRN PRN Hypoglycemia Protocol Dextrose 1,000 mls @ 100 mls/hr 04/30/25 21:12 Dextrose 5% 1,000 Ml IVPB PRN PRN Hypoglycemia Protocol Melatonin 5 mg 05/01/25 21:00 05/03/25 20:28 Melatonin 5 Mg Tablet PO 5 mg HS VICTORIANO Administration Sacubitril/Valsartan 1 tab 05/01/25 09:00 05/03/25 20:28 Sacubitril/Valsartan 24-26 Mg Tablet PO 1 tab Q12HR VICTORIANO Administration Radiology Results: ITS Impressions Chest X-Ray 04/30/25 17:07 Impression: CHF with superimposed probable pneumonia
[2025-05-04] MEDS: CLOPIDOGREL BISULFATE 75 MG TABLET PO (08:24)
[2025-05-04 09:17] LABS: Hematocrit 41.1 % (37.0-47.0); Hemoglobin 12.9 g/dL (12.0-15.0); Immature Granulocyte Percent A 0.4 % (0-0.5); Lymphocytes Absolute Auto 0.48 K/mm3 (0.9-3.2); Mean Corpuscular HGB Conc 31.4 g/dl (32-36); Mean Corpuscular Hemoglobin 32.1 pg (26-34); Mean Corpuscular Volume 102.2 fl (80-100); Nucleated Red Blood Cells Absolute Auto 0.000 K/mm3 (0.0-0.012); Nucleated Red Blood Cells Perc 0.0 % (0.0-0.2); Platelet Count Result 173 k/mm3 (150-375); Red Blood Count 4.02 M/mm3 (4.2-5.4); White Blood Count 4.8 K/mm3 (4.5-10.0)
[2025-05-04 09:34] LABS: Anion Gap 8 mmol/L (4-12); Blood Urea Nitrogen 37 mg/dL (7-17); Calcium 9.4 mg/dL (8.4-10.2); Carbon Dioxide 27 mmol/L (22-30); Chloride 104 mmol/L (98-107); Estimated CRCL calculation 37 ml/min; Estimated Glomerular Filt Rate 56; Glucose 105 mg/dL (65-110); Potassium 3.7 mmol/L (3.4-5.0); Sodium 139 mmol/L (137-145)
--- NOTE | 2025-05-04 09:53 | WPDMODSED ---
Moderate Sedation Note-Pt Data Patient Data Allergies Allergy/AdvReac Type Severity Reaction Status Date / Time No Known Allergies Allergy Unverified 03/22/25 15:08 Home Medications ?Medication ?Instructions ?Recorded ?Confirmed ?Type atorvastatin 40 mg tablet 80 mg (2 x 40 mg) PO HS #180 tabs 03/23/25 04/30/25 Rx varenicline tartrate 0.5 mg (11)-1 See Rx Instructions PO .COMPLEX 03/23/25 04/30/25 Rx mg (42) tablets in a dose pack #53 ea (Chantix Starting Month Box) apixaban 5 mg tablet (Eliquis) 5 mg PO BID #60 tabs 03/27/25 04/30/25 Rx clopidogrel 75 mg tablet 75 mg PO QAM 30 days #30 tabs 03/27/25 04/30/25 Rx sacubitril 24 mg-valsartan 26 mg 1 tab PO Q12HR 30 days #60 tabs 03/27/25 04/30/25 Rx tablet (Entresto) amiodarone 200 mg tablet ([place]) 200 mg PO DAILY@0800 #30 tabs 04/11/25 04/30/25 Rx furosemide 40 mg tablet (Lasix) 20 mg (1/2 x 40 mg) PO DAILY #10 04/11/25 04/30/25 Rx tabs metoprolol succinate 25 mg 25 mg PO QAM #30 tabs 04/11/25 04/30/25 Rx tablet,extended release 24 hr (Toprol XL) Current Medications: Active Medications Acetaminophen (Acetaminophen 325 Mg Tablet) 650 mg PO Q4H PRN PRN Reason: Mild Pain (1-3) or Fever Amiodarone HCl (Amiodarone Hcl 200 Mg Tablet) 200 mg PO DAILY@0800 [facility] Last Admin: 05/03/25 08:56 Dose: 200 mg Apixaban (Apixaban 5 Mg Tablet) 5 mg PO Q12HR [facility] On Hold: 05/02/25 11:52 Last Admin: 05/02/25 09:03 Dose: 5 mg Atorvastatin Calcium (Atorvastatin 40 Mg Tablet) 80 mg PO HS [facility] Last Admin: 05/03/25 20:27 Dose: 80 mg Clopidogrel Bisulfate (Clopidogrel Bisulfate 75 Mg Tablet) 75 mg PO QAM [facility] Last Admin: 05/04/25 08:24 Dose: 75 mg Dextrose (Dextrose 50% 25 Gm/50 Ml Syringe) 12.5 gm IV PUSH PRN PRN; Protocol PRN Reason: Hypoglycemia Empagliflozin (Empagliflozin 10 Mg Tablet) 10 mg PO DAILY [facility] Last Admin: 05/03/25 08:56 Dose: 10 mg Furosemide (Furosemide 40 Mg Tablet) 40 mg PO DAILY [facility] Last Admin: 05/03/25 08:57 Dose: 40 mg Glucagon (Glucagon For Inj 1 Mg Vial) 1 mg IM PRN PRN; Protocol PRN Reason: Hypoglycemia Glucose (Glucose Oral Gel 15 Gm Of Glucse In 37.5 Gm Tube) 15 gm PO PRN PRN; Protocol PRN Reason: Hypoglycemia Dextrose (Dextrose 5% 1,000 Ml) 1,000 mls @ 100 mls/hr IVPB PRN PRN; Protocol PRN Reason: Hypoglycemia Melatonin (Melatonin 5 Mg Tablet) 5 mg PO HS [facility] Last Admin: 05/03/25 20:28 Dose: 5 mg Sacubitril/Valsartan (Sacubitril/Valsartan 24-26 Mg Tablet) 1 tab PO Q12HR [facility] Last Admin: 05/03/25 20:28 Dose: 1 tab Sedation/Anesthesia: No previous sedation/anesthesia problems (including family history). [facility] Past Medical History Medical History (Updated 05/02/25 @ 12:10 by Beck Bassett PA-C) Paroxysmal atrial fibrillation Post cardiac catheterization Tobacco abuse Quit smoking when she had her STEMI 03/22/[address] elevation (STEMI) myocardial infarction (03/22/25) Ischemic cardiomyopathy Hypertension Surgical History Surgical History H/O cervical spine surgery X2 History of coronary artery stent placement (03/22/25) LAD is stent x2 Social History Social History Social History: Code status: Full code Surrogate decision maker: Daughter Smoking packs per day: 0.33 Smoking cigarettes per day: 6.6 Years smoked: 13 Smoking pack-years: 4.29 Smoking status: Former smoker Tobacco type: cigarettes Second hand tobacco smoke exposure: No Alcohol intake: never Substance use: never Substance use type: does not use Lack of Transportation: No Lack of Food: Never True Current Housing: I Have Housing Concerned About Future Housing: No Difficulty Paying Gas/Electric Bills: No Difficulty Paying for Meds: YES Currently Unemployed: No Education: High School Diploma/GED Difficulty w/ Childcare or Family Care: No Living arrangements: alone Occupation/Education: retired 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 Spiritual care concerns: No Mod Sed Physical Exam Physical Exam Pre Procedural Exam: Normal: Lungs, Heart Rate and Heart Rhythm Hours since solid foods: 12 Hours since liquid intake: 12 Mallampati Classification: class II Internal Medicine - PN: Obj Da Vital Signs Vital Signs: Vital Signs - 24 hr 05/03/25 12:00 05/03/25 12:00 05/03/25 12:00 Temperature 36.5 C Pulse Rate 54 L 56 L Respiratory Rate 18 Blood Pressure 103/56 L Pulse Oximetry 100 Oxygen Delivery Room Air 05/03/25 14:00 05/03/25 16:00 05/03/25 16:00 Temperature 36.4 C L Pulse Rate 51 L 48 L Respiratory Rate 18 Blood Pressure 107/76 Pulse Oximetry 96 Oxygen Delivery Room Air 05/03/25 16:00 05/03/25 18:00 05/03/25 19:53 Temperature 36.6 C Pulse Rate 57 L 60 56 L Respiratory Rate 18 Blood Pressure 101/58 L Pulse Oximetry 100 Oxygen Delivery 05/03/25 20:00 05/03/25 22:00 05/04/25 00:00 Temperature 36.9 C Pulse Rate 54 L 58 L 58 L Respiratory Rate 18 Blood Pressure 96/49 L Pulse Oximetry 94 Oxygen Delivery 05/04/25 00:00 05/04/25 02:00 05/04/25 04:00 Temperature 36.9 C Pulse Rate 55 L 55 L 61 Respiratory Rate 18 Blood Pressure 109/65 Pulse Oximetry 96 Oxygen Delivery 05/04/25 04:00 05/04/25 05:59 05/04/25 07:53 Temperature 36.4 C L Pulse Rate 52 L 52 L 52 L Respiratory Rate 8 L Blood Pressure 123/72 Pulse Oximetry 99 Oxygen Delivery 05/04/25 08:00 Temperature Pulse Rate Respiratory Rate Blood Pressure Pulse Oximetry Oxygen Delivery Room Air Intake/Output Intake/Output: Intake & Output 05/01/25 05/02/25 05/03/25 05/04/25 23:59 23:59 23:59 23:59 Intake Total 2220 1330 1377 120 Output Total 1200 1250 1000 Balance 1020 80 377 120 Meds/Results Medications: Active Medications Generic Name Dose Route Start Last Admin Trade Name Pito PRN Reason Stop Dose Admin Acetaminophen 650 mg 04/30/25 21:12 Acetaminophen 325 Mg Tablet PO Q4H PRN Mild Pain (1-3) or Fever Amiodarone HCl 200 mg 05/01/25 08:00 05/03/25 08:56 Amiodarone Hcl 200 Mg Tablet PO 200 mg DAILY@0800 VICTORIANO Administration Apixaban 5 mg 05/01/25 09:00 05/02/25 09:03 Apixaban 5 Mg Tablet PO 5 mg On Hold: 05/02/25 11:52 Q12HR VICTORIANO Administration Atorvastatin Calcium 80 mg 05/01/25 21:00 05/03/25 20:27 Atorvastatin 40 Mg Tablet PO 80 mg HS VICTORIANO Administration Clopidogrel Bisulfate 75 mg 05/01/25 09:00 05/04/25 08:24 Clopidogrel Bisulfate 75 Mg Tablet PO 75 mg QAM VICTORIANO Administration Dextrose 12.5 gm 04/30/25 21:12 Dextrose 50% 25 Gm/50 Ml Syringe IV PUSH PRN PRN Hypoglycemia Protocol Empagliflozin 10 mg 05/02/25 09:00 05/03/25 08:56 Empagliflozin 10 Mg Tablet PO 10 mg DAILY VICTORIANO Administration Furosemide 40 mg 05/03/25 09:00 05/03/25 08:57 Furosemide 40 Mg Tablet PO 40 mg DAILY VICTORIANO Administration Glucagon 1 mg 04/30/25 21:12 Glucagon For Inj 1 Mg Vial IM PRN PRN Hypoglycemia Protocol Glucose 15 gm 04/30/25 21:12 Glucose Oral Gel 15 Gm Of Glucse In 37.5 Gm Tube PO PRN PRN Hypoglycemia Protocol Dextrose 1,000 mls @ 100 mls/hr 04/30/25 21:12 Dextrose 5% 1,000 Ml IVPB PRN PRN Hypoglycemia Protocol Melatonin 5 mg 05/01/25 21:00 05/03/25 20:28 Melatonin 5 Mg Tablet PO 5 mg HS VICTORIANO Administration Sacubitril/Valsartan 1 tab 05/01/25 09:00 05/03/25 20:28 Sacubitril/Valsartan 24-26 Mg Tablet PO 1 tab Q12HR VICTORIANO Administration Radiology Results: ITS Impressions Chest X-Ray 04/30/25 17:07 Impression: CHF with superimposed probable pneumonia Labs 05/04/25 09:07 05/04/25 09:06 Labs: Laboratory Results - last 24 hr 05/04/25 05/04/25 09:06 09:07 WBC 4.8 RBC 4.02 L Hgb 12.9 Hct 41.1 MCV 102.2 H MCH 32.1 MCHC 31.4 L RDW 16.0 H Plt Count 173 MPV 11.1 H Immature Gran % (Auto) 0.4 Neut % (Auto) 80.2 H Lymph % (Auto) 10.0 L [place] % (Auto) 7.1 Eos % (Auto) 1.7 Baso % (Auto) 0.6 Lymph # (Auto) 0.48 L [place] # (Auto) 0.3 Eos # (Auto) 0.1 Baso # (Auto) 0.0 Abs Immat Gran (auto) 0.02 Absolute Neuts (auto) 3.8 Absolute Nucleated RBC 0.000 Nucleated RBC % 0.0 Sodium 139 Potassium 3.7 Chloride 104 Carbon Dioxide 27 Anion Gap 8 BUN 37 H D Creatinine 0.98 Estim Creat Clear Calc 37 Estimated GFR 56 L Glucose 105 Calcium 9.4 ASA Classification/Sedation ASA Classification/Sedation ASA Class: III Emergent: No Risks: Risks, benefits and alternatives explained and patient/family accepted plan for sedation. Patient re-evaluated immediately prior to sedation.
--- NOTE | 2025-05-04 09:53 | WPDHPUPDATE1 ---
History and Physical Update Update Date/Time: 05/04/25 09:53 History and Physical has been reviewed, including an updated exam of the patient. Please note the following changes in the patient's condition: Euvolemic by exam. LVEF improved 35%. Risks, benefits, and alternatives have been discussed and questions answered. Patient agrees to proceed with procedure.
--- NOTE | 2025-05-04 11:26 | P.PNIM_ITS ---
Progress Note: A&P Assessment and Plan (1) Acute CHF (congestive heart failure): Qualifiers: Heart failure type: systolic Qualified Code(s): I50.21 - Acute systolic (congestive) heart failure Code(s): I50.9 - Heart failure, unspecified Status: Acute Assessment and Plan: -with history of ischemic cardiomyopathy -Symptoms: Shortness of breath -Current medications: Lasix, Entresto -BNP: 62924 -EKG: bradycardia (54), sinus rhythm and non-specific ST changes (slight ST elevation of anterior leads, appears similar to 04/10) -CXR:CHF with superimposed probable pneumonia -Echo (03/23/25): EF 25-30%, apex/septum/anterior wall/distal inferior wall severely hypokinetic, moderate aortic stenosis - repeat echo 05/01 with EF 30-35% -Monitor serum electrolytes, Keep serum Potassium>4 and serum Magnesium>2 and CBC -Cardio consulted - s/p IV diuresis with good response. Transitioned back to PO lasix. -Continue Entresto, Add empagliflozin 10 mg daily. Not on beta-jacki due to bradycardia. -[facility] today (2) Coronary artery disease: Code(s): I25.10 - Atherosclerotic heart disease of [place] coronary artery without angina pectoris Status: Acute Assessment and Plan: - STEMI on 03/22/2025 status post PCI to proximal LAD with 2 drug-eluting stents (she she was also noted to have 70% stenosis of proximal ramus intermedius, 50% stenosis of ostial RCA) - continue Plavix, atorvastatin - cardio following - Staged PCI to 70% proximal ramus intermedius 05/04 to achieve stage complete revascularization post recent AMI. Holding Amber for [facility]. (3) Elevated troponin: Code(s): R79.89 - Other specified abnormal findings of blood chemistry Status: Acute Assessment and Plan: -Likely secondary to demand ischemia -EKG not suggestive of ischemia - troponin trended down (4) Abnormal chest xray: Code(s): R93.89 - Abnormal findings on diagnostic imaging of other specified body structures Status: Acute Assessment and Plan: -Chest XR: CHF with superimposed probable pneumonia -Also presented with cough, however less likely pneumonia as afebrile without leukocytosis, no hypoxia. More likely 2/2 fluid overload, management as above. (5) Hypertension: Qualifiers: Hypertension type: primary hypertension Qualified Code(s): I10 - Essential (primary) hypertension Code(s): I10 - Essential (primary) hypertension Status: Acute Assessment and Plan: -Blood pressure remains well controlled. -Will continue current medications. (6) Hyperlipidemia: Qualifiers: Hyperlipidemia type: pure hypercholesterolemia Qualified Code(s): E78.00 - Pure hypercholesterolemia, unspecified Code(s): E78.5 - Hyperlipidemia, unspecified Status: Acute Assessment and Plan: -Continue atorvastatin (7) Atrial fibrillation: Code(s): I48.91 - Unspecified atrial fibrillation Status: Acute Assessment and Plan: -Continue anticoagulation with Eliquis - not on beta-jacki due to bradycardia Subjective Date/time seen: 05/04/25 11:26 Interval history: Patient seen and examined at bedside. No chest pain or SOB. Anxious to have proc edure this AM. Review of Systems Review of Systems: All systems reviewed & are unremarkable except as noted in HPI and below Exam Narrative: General: NAD, frail Eyes: EOMI ENT: neck supple Cardiovascular: Regular rate and rhythm Respiratory: Clear to auscultation, respirations even and unlabored on RA Gastrointestinal: Soft, non tender Genitourinary: no suprapubic tenderness Musculoskeletal: No edema Skin: warm, dry Neuro: Alert. Psych:anxious Objective Data Vital Signs Vital Signs: Vital Signs - 24 hr 05/03/25 12:00 05/03/25 12:00 05/03/25 12:00 Temperature 97.7 F Pulse Rate 54 L 56 L Respiratory Rate 18 Blood Pressure 103/56 L Pulse Oximetry 100 Oxygen Delivery Room Air 05/03/25 14:00 05/03/25 16:00 05/03/25 16:00 Temperature 97.5 F L Pulse Rate 51 L 48 L Respiratory Rate 18 Blood Pressure 107/76 Pulse Oximetry 96 Oxygen Delivery Room Air 05/03/25 16:00 05/03/25 18:00 05/03/25 19:53 Temperature 97.8 F Pulse Rate 57 L 60 56 L Respiratory Rate 18 Blood Pressure 101/58 L Pulse Oximetry 100 Oxygen Delivery 05/03/25 20:00 05/03/25 22:00 05/04/25 00:00 Temperature 98.4 F Pulse Rate 54 L 58 L 58 L Respiratory Rate 18 Blood Pressure 96/49 L Pulse Oximetry 94 Oxygen Delivery 05/04/25 00:00 05/04/25 02:00 05/04/25 04:00 Temperature 98.4 F Pulse Rate 55 L 55 L 61 Respiratory Rate 18 Blood Pressure 109/65 Pulse Oximetry 96 Oxygen Delivery 05/04/25 04:00 05/04/25 05:59 05/04/25 07:53 Temperature 97.5 F L Pulse Rate 52 L 52 L 52 L Respiratory Rate 8 L Blood Pressure 123/72 Pulse Oximetry 99 Oxygen Delivery 05/04/25 08:00 Temperature Pulse Rate Respiratory Rate Blood Pressure Pulse Oximetry Oxygen Delivery Room Air Intake/Output Intake/Output: Intake & Output 05/01/25 05/02/25 05/03/25 05/04/25 23:59 23:59 23:59 23:59 Intake Total 2220 1330 1377 120 Output Total 1200 1250 1000 Balance 1020 80 377 120 Meds/Results Medications: Active Medications Generic Name Dose Route Start Last Admin Trade Name Freq PRN Reason Stop Dose Admin Acetaminophen 650 mg 04/30/25 21:12 Acetaminophen 325 Mg Tablet PO Q4H PRN Mild Pain (1-3) or Fever Amiodarone HCl 200 mg 05/01/25 08:00 05/03/25 08:56 Amiodarone Hcl 200 Mg Tablet PO 200 mg DAILY@0800 VICTORIANO Administration Apixaban 5 mg 05/01/25 09:00 05/02/25 09:03 Apixaban 5 Mg Tablet PO 5 mg On Hold: 05/02/25 11:52 Q12HR VICTORIANO Administration Atorvastatin Calcium 80 mg 05/01/25 21:00 05/03/25 20:27 Atorvastatin 40 Mg Tablet PO 80 mg HS VICTORIANO Administration Clopidogrel Bisulfate 75 mg 05/01/25 09:00 05/04/25 08:24 Clopidogrel Bisulfate 75 Mg Tablet PO 75 mg QAM VICTORIANO Administration Dextrose 12.5 gm 04/30/25 21:12 Dextrose 50% 25 Gm/50 Ml Syringe IV PUSH PRN PRN Hypoglycemia Protocol Empagliflozin 10 mg 05/02/25 09:00 05/03/25 08:56 Empagliflozin 10 Mg Tablet PO 10 mg DAILY VICTORIANO Administration Furosemide 40 mg 05/03/25 09:00 05/03/25 08:57 Furosemide 40 Mg Tablet PO 40 mg DAILY VICTORIANO Administration Glucagon 1 mg 04/30/25 21:12 Glucagon For Inj 1 Mg Vial IM PRN PRN Hypoglycemia Protocol Glucose 15 gm 04/30/25 21:12 Glucose Oral Gel 15 Gm Of Glucse In 37.5 Gm Tube PO PRN PRN Hypoglycemia Protocol Dextrose 1,000 mls @ 100 mls/hr 04/30/25 21:12 Dextrose 5% 1,000 Ml IVPB PRN PRN Hypoglycemia Protocol Melatonin 5 mg 05/01/25 21:00 05/03/25 20:28 Melatonin 5 Mg Tablet PO 5 mg HS VICTORIANO Administration Sacubitril/Valsartan 1 tab 05/01/25 09:00 05/03/25 20:28 Sacubitril/Valsartan 24-26 Mg Tablet PO 1 tab Q12HR VICTORIANO Administration Radiology Results: ITS Impressions Chest X-Ray 04/30/25 17:07 Impression: CHF with superimposed probable pneumonia Labs Labs: Laboratory Results - last 24 hr 05/04/25 05/04/25 05/04/25 09:06 09:07 10:56 WBC 4.8 RBC 4.02 L Hgb 12.9 Hct 41.1 MCV 102.2 H MCH 32.1 MCHC 31.4 L RDW 16.0 H Plt Count 173 MPV 11.1 H Immature Gran % (Auto) 0.4 Neut % (Auto) 80.2 H Lymph % (Auto) 10.0 L [place] % (Auto) 7.1 Eos % (Auto) 1.7 Baso % (Auto) 0.6 Lymph # (Auto) 0.48 L [place] # (Auto) 0.3 Eos # (Auto) 0.1 Baso # (Auto) 0.0 Abs Immat Gran (auto) 0.02 Absolute Neuts (auto) 3.8 Absolute Nucleated RBC 0.000 Nucleated RBC % 0.0 Activ Coag Time Kaolin 245 H Sodium 139 Potassium 3.7 Chloride 104 Carbon Dioxide 27 Anion Gap 8 BUN 37 H D Creatinine 0.98 Estim Creat Clear Calc 37 Estimated GFR 56 L Glucose 105 Calcium 9.4 05/04/25 11:22 WBC RBC Hgb Hct MCV MCH MCHC RDW Plt Count MPV Immature Gran % (Auto) Neut % (Auto) Lymph % (Auto) [place] % (Auto) Eos % (Auto) Baso % (Auto) Lymph # (Auto) [place] # (Auto) Eos # (Auto) Baso # (Auto) Abs Immat Gran (auto) Absolute Neuts (auto) Absolute Nucleated RBC Nucleated RBC % Activ Coag Time Kaolin 262 H Sodium Potassium Chloride Carbon Dioxide Anion Gap BUN Creatinine Estim Creat Clear Calc Estimated GFR Glucose Calcium Quality VTE Prophylaxis VTE prophylaxis: pharmacologic ordered (Continue home Eliquis)
--- NOTE | 2025-05-04 11:29 | P.PCNCC_ITS ---
Cardiac Cath Procedure Note Date of procedure:: 05/04/25 Performing physician:: Bailey Carranza MD Indication:: CATHETERIZATION LABORATORY REPORT Procedure Date: 05/04/2025 Anesthesia: Versed and Fentanyl were ordered and given in my presence at 10:33 a.m., procedure ended at 11:21 a.m.. Supervision of nurse monitored moderate sedation with Versed and Fentanyl was provided for 48 minutes. Fentanyl: 100 mcg Versed: 1 mg Pre-op Diagnosis: Recent STEMI status post PCI to proximal LAD Obstructive CAD with 70% stenosis of proximal ramus intermedius Acute systolic heart failure with LVEF 30 to 35 % Post-op Diagnosis: Successful IVUS guided staged PCI to 70% stenosis of proximal ramus intermedius with 3.0 mm X 22 mm [employer] [place] stent post dilated with 3.25 mm X mm to high pressures (to achieve complete revascularization post STEMI Recent STEMI status post PCI to proximal LAD Acute systolic heart failure with LVEF 30-35%, LVEDP 25 mm Hg Procedure(s): Left heart catheterization with coronary angiography PCI to 70% stenosis of proximal ramus intermedius Access Site: Right radial artery Brief History and Clinical Indications: All risks, benefits and alternatives to left heart catheterization with or without percutaneous coronary intervention was discussed at length with the patient. Risk of complications including but not limited to bleeding, infection, arrhythmia, stroke, worsening kidney function, blood loss, groin hematoma, limb loss, emergency coronary artery bypass grafting, and even were discussed with the patient and all questions were answered. The patient understood and wished to proceed. 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 Findings: LEFT HEART CATHETERIZATION FINDINGS: 1. Left main: The left main coronary artery is widely patent without any significant obstructive disease. 2. Left anterior descending: The proximal LAD stent is widely patent. The diagonal branches have mild luminal irregularities without any significant obstructive angiographic disease. 3. Left circumflex: The left circumflex artery and the main marginal branches are widely patent without any significant obstructive angiographic disease. 4. Ramus intermedius: 70% stenosis of proximal ramus intermedius. 5. Right coronary artery: The RCA is widely patent without any significant obstructive angiographic disease. The RCA is the dominant vessel. 5. Left ventricle: A. End-diastolic pressure 25 mmHg. B. LV gram deferred. C. No significant gradient across aortic valve on catheter pullback. 6. Opening AO pressure 115/77 mm Hg and closing AO pressure 105/70 mm Hg Description of Procedure: Informed consent signed and placed in the chart. Patient transferred to label stamper room. Prepped and draped in usual sterile fashion. 2% lidocaine in right groin area. Micropuncture needle used to access right common femoral artery with Seldinger technique under fluoroscopic guidance. J wire advanced, micropuncture cannula placed. Right iliofemoral angiogram performed, access confirmed and micropuncture cannula exchanged for 6-FR sheath. ? 6 [place] EBU 3.5 guide catheter engaged Left Main Coronary Artery. 6 [place] JR4 for diagnostic catheter engaged Right Coronary Artery. Multiple orthogonal angiogram obtained and reviewed 6 [place] JR4 diagnostic catheter crossed aortic valve to obtain LVEDP, LV angiogram deferred. Procedure Description for PCI: Heparin was used for anticoagulation (ACT maintained above 250) Patient loaded with heparin at 70 units/kg. 6 [place] EBU 3.5 guide catheter was used to intubate the left main 0.014 runthrough coronary wire was passed in to the distal ramus intermedius The lesion was pre-dilated with a 2.5 mm X 20 mm balloon inflated to high NAUHM A 3.0 mm x 22 mm [employer] [place] RENAE was successfully deployed into proximal ramus intermedius The stent was post-dilated with a 3.25 mm X 15 mm NC balloon inflated to high NAHUM Intracoronary NTG was administered Follow-up angiograms showed an excellent result Coronary wire and guide-catheter were removed Pre-procedure - JITENDRA 3 flow Post-procedure - JITENDRA 3 flow No angiographic complications identified. Assessment: Successful IVUS guided staged PCI to 70% stenosis of proximal ramus intermedius with 3.0 mm X 22 mm [employer] [place] stent post dilated with 3.25 mm X mm to high pressures (to achieve complete revascularization post STEMI Recent STEMI status post PCI to proximal LAD Acute systolic heart failure with LVEF 30-35%, LVEDP 25 mm Hg Post Operative Condition: Stable No significant blood loss Disposition: Floor Plan: The patient will be monitored in the recovery area. Resume Eliquis. Continue Plavix 75 mg daily. IV Lasix 40 mg today. P.o. Lasix 20 mg daily starting tomorrow. Check renal function in a.m.. Continue aggressive medical therapy and risk factor modification. Further recommendations and management per primary cardiology team. Bailey Carranza MD, MS, FACC, [facility] Interventional Cardiology
[2025-05-04] MEDS: FUROSEMIDE INJ 40 MG/4 ML VIAL IV PUSH (12:05)
--- NOTE | 2025-05-04 13:00 | PC.NURSE ---
Addendum entered by Mari Merida RN 05/04/25 15:17: MD Carranza also stated to restart eliquis at 1500. This RN communicated this to Kristen Worley RN at time of transfer back to floor. Original Note: This RN confirmed that no dose of oral lasix is required today with MD Carranza due to receiving IV lasix.
[2025-05-04] MEDS: EMPAGLIFLOZIN 10 MG TABLET PO (13:30)
[2025-05-04] MEDS: AMIODARONE HCL 200 MG TABLET PO (13:30)
[2025-05-04] MEDS: APIXABAN 5 MG TABLET PO (16:01)
[2025-05-04] MEDS: SACUBITRIL/VALSARTAN 24-26 MG TABLET 1 TAB PO (20:14)
[2025-05-04] MEDS: MELATONIN 5 MG TABLET PO (20:14)
[2025-05-04] MEDS: ATORVASTATIN 40 MG TABLET 80 MG PO (20:14)
[2025-05-05] VITALS (7 sets, daily range): BP systolic 90–104; BP diastolic 54–61; PULSE 53–65; RESP 18; TEMP 36.6; O2SAT 93–98
[2025-05-05 04:41] LABS: Hematocrit 34.5 % (37.0-47.0); Hemoglobin 11.2 g/dL (12.0-15.0); Immature Granulocyte Percent A 0.7 % (0-0.5); Lymphocytes Absolute Auto 0.36 K/mm3 (0.9-3.2); Mean Corpuscular HGB Conc 32.5 g/dl (32-36); Mean Corpuscular Hemoglobin 31.7 pg (26-34); Mean Corpuscular Volume 97.7 fl (80-100); Nucleated Red Blood Cells Absolute Auto 0.000 K/mm3 (0.0-0.012); Nucleated Red Blood Cells Perc 0.0 % (0.0-0.2); Platelet Count Result 146 k/mm3 (150-375); Red Blood Count 3.53 M/mm3 (4.2-5.4); White Blood Count 4.3 K/mm3 (4.5-10.0)
[2025-05-05 04:56] LABS: Alanine Aminotransferase 51 U/L (6-35); Albumin Level 3.2 g/dL (3.5-5.1); Alkaline Phosphatase 99 U/L (38-126); Anion Gap 5 mmol/L (4-12); Aspartate Amino Transferase 38 U/L (14-36); Bilirubin,Total 0.5 mg/dL (0.2-1.3); Blood Urea Nitrogen 34 mg/dL (7-17); Calcium 8.9 mg/dL (8.4-10.2); Carbon Dioxide 29 mmol/L (22-30); Chloride 102 mmol/L (98-107); Estimated CRCL calculation 36 ml/min; Estimated Glomerular Filt Rate 53; Glucose 112 mg/dL (65-110); Potassium 3.5 mmol/L (3.4-5.0); Sodium 136 mmol/L (137-145); Total Protein 5.3 g/dL (6.3-8.2)
--- NOTE | 2025-05-05 06:51 | PM.PNCARD ---
Progress Note: A&P Assessment and Plan (1) Acute on chronic systolic heart failure: Code(s): I50.23 - Acute on chronic systolic (congestive) heart failure Status: Acute (2) Elevated troponin: Code(s): R79.89 - Other specified abnormal findings of blood chemistry Status: Acute (3) Coronary artery disease: Code(s): I25.10 - Atherosclerotic heart disease of [place] coronary artery without angina pectoris Status: Acute Plan Diagnosis: -STEMI on 03/22/2025 status post PCI to proximal LAD with 2 drug-eluting stents. She she was also noted to have 70% stenosis of proximal ramus intermedius, 50% stenosis of ostial RCA and underwent PCI to proximal ramus intermedius during this hospitalization to achieve complete revascularization post STEMI -CAD -Bradycardia-asymptomatic -Ischemic cardiomyopathy with LVEF 25-30%, repeat echo demonstrates EF of 30-35% -Acute on chronic systolic heart failure -Paroxysmal atrial fibrillation -Tobacco abuse with recent tobacco cessation -Hyperlipidemia -Hypertension Plan: Give Lasix p.o. 40 mg daily. Continue Lasix 40 mg daily for 3 more days then switch to 20 mg p.o. daily. Her dry weight is 119 pounds. I have advised her to take an additional 20 mg of lasix po in the evening if her weight increases more than 3 pounds in 24 hours (or >122pounds) Check ins and outs, weight daily. Check renal function daily Check and replace electrolytes to keep potassium greater than 4 and magnesium greater than 2 Continue anticoagulation with Eliquis for AFib Continue amiodarone On Clopidogrel and Eliquis given recent primary PCI in 03/2025. Resumed Eliquis yesterday post PCI Continue atorvastatin GDMT for ischemic cardiomyopathy. No beta-jacki given bradycardia. Continue Entresto and empagliflozin Okay to discharge from cardiac standpoint. Follow-up with cardiology as outpatient in 2 weeks with a BMP Subjective Date/time seen: 05/05/25 06:51 Interval history: Extremely anxious but pleasant 74-year-old female with a past medical history of tobacco abuse with recent tobacco cessation, recent STEMI 03/22/2025 with 2 drug-eluting stents placed to the LAD and subsequent ischemic cardiomyopathy with EF of, 25-30% and complicated by post ischemia paroxysmal atrial fibrillation who presented to the ER with bilateral lower extremity swelling and increasing shortness of breath. Interval history: No chest pain or shortness of breath. Review of Systems Review of Systems: All systems reviewed & are unremarkable except as noted in HPI and below (HPI ) Exam Narrative: General: Alert oriented x3, no acute distress Neck: Supple, no JVD Chest: Bilaterally clear to auscultation, no rales or rhonchi Cardiac: S1, S2 +, regular rate, regular rhythm, no murmurs or rubs Extremities: No pedal edema, no skin rash Neurologic: Alert and oriented x3, no focal neurological deficits Objective Data Vital Signs Vital Signs: Vital Signs - 24 hr 05/04/25 07:53 05/04/25 08:00 05/04/25 11:45 Temperature 36.4 C L Pulse Rate 52 L Pulse Rate [Right Pedal (Dorsalis Pedis) Palpation] 56 L Respiratory Rate 8 L Blood Pressure 123/72 Pulse Oximetry 99 Oxygen Delivery Room Air 05/04/25 11:45 05/04/25 12:00 05/04/25 12:00 Temperature Pulse Rate 56 L 58 L Pulse Rate [Right Pedal (Dorsalis Pedis) Palpation] 58 L Respiratory Rate 15 18 Blood Pressure 113/69 120/78 Pulse Oximetry 99 100 Oxygen Delivery Room Air Room Air 05/04/25 12:15 05/04/25 12:15 05/04/25 12:30 Temperature Pulse Rate 58 L Pulse Rate [Right Pedal (Dorsalis Pedis) Palpation] 59 L 60 Respiratory Rate 17 Blood Pressure 116/75 Pulse Oximetry 100 Oxygen Delivery Room Air 05/04/25 12:30 05/04/25 13:21 05/04/25 13:30 Temperature 36.4 C L Pulse Rate 60 55 L 58 L Pulse Rate [Right Pedal (Dorsalis Pedis) Palpation] Respiratory Rate 20 18 Blood Pressure 119/85 96/60 L Pulse Oximetry 100 98 Oxygen Delivery Room Air 05/04/25 13:30 05/04/25 14:00 05/04/25 14:26 Temperature 36.5 C 36.4 C L Pulse Rate 54 L 52 L 58 L Pulse Rate [Right Pedal (Dorsalis Pedis) Palpation] Respiratory Rate 18 16 Blood Pressure 113/67 110/65 Pulse Oximetry 96 97 Oxygen Delivery 05/04/25 16:00 05/04/25 16:00 05/04/25 16:29 Temperature 36.3 C L Pulse Rate 63 67 Pulse Rate [Right Pedal (Dorsalis Pedis) Palpation] Respiratory Rate 18 Blood Pressure 122/92 H Pulse Oximetry 98 Oxygen Delivery Room Air 05/04/25 18:00 05/04/25 18:34 05/04/25 20:00 Temperature 36.1 C L 36.4 C Pulse Rate 60 68 66 Pulse Rate [Right Pedal (Dorsalis Pedis) Palpation] Respiratory Rate 16 18 Blood Pressure 121/82 95/59 L Pulse Oximetry 99 96 Oxygen Delivery 05/04/25 20:00 05/04/25 22:00 05/05/25 00:00 Temperature Pulse Rate 61 57 L 56 L Pulse Rate [Right Pedal (Dorsalis Pedis) Palpation] Respiratory Rate Blood Pressure Pulse Oximetry Oxygen Delivery 05/05/25 00:00 05/05/25 02:00 05/05/25 04:00 Temperature 36.6 C Pulse Rate 56 L 57 L 55 L Pulse Rate [Right Pedal (Dorsalis Pedis) Palpation] Respiratory Rate 18 18 Blood Pressure 90/56 L 90/54 L Pulse Oximetry 94 93 Oxygen Delivery 05/05/25 04:00 05/05/25 06:00 Temperature Pulse Rate 55 L 55 L Pulse Rate [Right Pedal (Dorsalis Pedis) Palpation] Respiratory Rate Blood Pressure Pulse Oximetry Oxygen Delivery Intake/Output Intake/Output: Intake & Output 05/02/25 05/03/25 05/04/25 05/05/25 23:59 23:59 23:59 23:59 Intake Total 1330 1377 560 200 Output Total 1250 1000 750 Balance 80 377 -190 200 Meds/Results Medications: Active Medications Generic Name Dose Route Start Last Admin Trade Name Freq PRN Reason Stop Dose Admin Acetaminophen 650 mg 04/30/25 21:12 Acetaminophen 325 Mg Tablet PO Q4H PRN Mild Pain (1-3) or Fever Amiodarone HCl 200 mg 05/01/25 08:00 05/04/25 13:30 Amiodarone Hcl 200 Mg Tablet PO 200 mg DAILY@0800 VICTORIANO Administration Apixaban 5 mg 05/01/25 09:00 05/04/25 16:01 Apixaban 5 Mg Tablet PO 5 mg Q12HR VICTORIANO Administration Atorvastatin Calcium 80 mg 05/01/25 21:00 05/04/25 20:14 Atorvastatin 40 Mg Tablet PO 80 mg HS VICTORIANO Administration Clopidogrel Bisulfate 75 mg 05/01/25 09:00 05/04/25 08:24 Clopidogrel Bisulfate 75 Mg Tablet PO 75 mg QAM VICTORIANO Administration Dextrose 12.5 gm 04/30/25 21:12 Dextrose 50% 25 Gm/50 Ml Syringe IV PUSH PRN PRN Hypoglycemia Protocol Empagliflozin 10 mg 05/02/25 09:00 05/04/25 13:30 Empagliflozin 10 Mg Tablet PO 10 mg DAILY VICTORIANO Administration Furosemide 40 mg 05/03/25 09:00 05/04/25 13:18 Furosemide 40 Mg Tablet PO Not Given DAILY VICTORIANO Glucagon 1 mg 04/30/25 21:12 Glucagon For Inj 1 Mg Vial IM PRN PRN Hypoglycemia Protocol Glucose 15 gm 04/30/25 21:12 Glucose Oral Gel 15 Gm Of Glucse In 37.5 Gm Tube PO PRN PRN Hypoglycemia Protocol Dextrose 1,000 mls @ 100 mls/hr 04/30/25 21:12 Dextrose 5% 1,000 Ml IVPB PRN PRN Hypoglycemia Protocol Melatonin 5 mg 05/01/25 21:00 05/04/25 20:14 Melatonin 5 Mg Tablet PO 5 mg HS VICTORIANO Administration Sacubitril/Valsartan 1 tab 05/01/25 09:00 05/04/25 20:14 Sacubitril/Valsartan 24-26 Mg Tablet PO 1 tab Q12HR VICTORIANO Administration Radiology Results: ITS Impressions Chest X-Ray 04/30/25 17:07 Impression: CHF with superimposed probable pneumonia Labs Labs: Laboratory Results - last 24 hr 05/04/25 05/04/25 05/04/25 09:06 09:07 10:56 WBC 4.8 RBC 4.02 L Hgb 12.9 Hct 41.1 MCV 102.2 H MCH 32.1 MCHC 31.4 L RDW 16.0 H Plt Count 173 MPV 11.1 H Immature Gran % (Auto) 0.4 Neut % (Auto) 80.2 H Lymph % (Auto) 10.0 L [place] % (Auto) 7.1 Eos % (Auto) 1.7 Baso % (Auto) 0.6 Lymph # (Auto) 0.48 L [place] # (Auto) 0.3 Eos # (Auto) 0.1 Baso # (Auto) 0.0 Abs Immat Gran (auto) 0.02 Absolute Neuts (auto) 3.8 Absolute Nucleated RBC 0.000 Nucleated RBC % 0.0 Activ Coag Time Kaolin 245 H Sodium 139 Potassium 3.7 Chloride 104 Carbon Dioxide 27 Anion Gap 8 BUN 37 H D Creatinine 0.98 Estim Creat Clear Calc 37 Estimated GFR 56 L Glucose 105 Calcium 9.4 Total Bilirubin AST ALT Alkaline Phosphatase Total Protein Albumin 05/04/25 05/05/25 11:22 04:20 WBC 4.3 L RBC 3.53 L Hgb 11.2 L Hct 34.5 L MCV 97.7 MCH 31.7 MCHC 32.5 RDW 16.3 H Plt Count 146 L MPV 11.5 H Immature Gran % (Auto) 0.7 H Neut % (Auto) 78.9 H Lymph % (Auto) 8.4 L [place] % (Auto) 8.7 H Eos % (Auto) 2.6 Baso % (Auto) 0.7 Lymph # (Auto) 0.36 L [place] # (Auto) 0.4 Eos # (Auto) 0.1 Baso # (Auto) 0.0 Abs Immat Gran (auto) 0.03 Absolute Neuts (auto) 3.4 Absolute Nucleated RBC 0.000 Nucleated RBC % 0.0 Activ Coag Time Kaolin 262 H Sodium 136 L Potassium 3.5 Chloride 102 Carbon Dioxide 29 Anion Gap 5 BUN 34 H Creatinine 1.03 H Estim Creat Clear Calc 36 Estimated GFR 53 L Glucose 112 H Calcium 8.9 Total Bilirubin 0.5 AST 38 H ALT 51 H Alkaline Phosphatase 99 Total Protein 5.3 L Albumin 3.2 L
[2025-05-05] MEDS: AMIODARONE HCL 200 MG TABLET PO (08:36)
[2025-05-05] MEDS: FUROSEMIDE 40 MG TABLET PO (08:36)
[2025-05-05] MEDS: APIXABAN 5 MG TABLET PO (08:36)
[2025-05-05] MEDS: EMPAGLIFLOZIN 10 MG TABLET PO (08:36)
[2025-05-05] MEDS: CLOPIDOGREL BISULFATE 75 MG TABLET PO (08:36)
[2025-05-05] MEDS: SACUBITRIL/VALSARTAN 24-26 MG TABLET 1 TAB PO (08:36)
--- NOTE | 2025-05-05 09:39 | P.DS_ITS ---
DS: Admitting Diagnosis Discharge Date 05/05/25 Admitting Diagnosis -CAD -Acute on chronic HFrEF -elevated troponin - abnormal CXR - HTN - Atrial fibrillation - HLD DS: Discharge Diagnosis Discharge Diagnosis (1) Acute CHF (congestive heart failure): Qualifiers: Heart failure type: systolic Qualified Code(s): I50.21 - Acute systolic (congestive) heart failure Code(s): I50.9 - Heart failure, unspecified Status: Acute DS: Summary Hospital Course Reason for hospitalization: -CAD -Acute on chronic HFrEF -elevated troponin - abnormal CXR - HTN - Atrial fibrillation - HLD Hospital Course: Patient is a 74 yo female with past medical history of tobacco use with recent cessation, recent STEMI 03/22/2025 with 2 drug-eluting stents placed to the LAD and subsequent ischemic cardiomyopathy with EF of, 25-30% and complicated by post ischemia paroxysmal atrial fibrillation who presented to the emergency department 05/01/25 with bilateral lower extremity edema and worsening dyspnea. In the ED, hemoglobin 11.3, creatinine 1.24, ALT 36, troponin I 0.046, 0.067. CXR with CHF and possible superimposed pneumonia. Patient was started on IV diuresis and admitted for further cardiac evaluation. Patient was started on IV diuresis for suspected acute on chronic HFrEF setting of known EF 25-30%. Repeat echocardiogram showed improving EF of 30-35%, severely enlarged left atrium severe mitral regurgitation and mild pulmonary hypertension. Patient's shortness of breath and leg edema improved with IV Lasix and patient was subsequently transitioned to p.o. Lasix. Patient is not on beta-charito due to bradycardia. She will continue Entresto and Jardiance. Patient underwent left heart catheterization with staged PCI to the proximal ramus intermedius. Cardiology recommended to continue Eliquis and Plavix on discharge. Did not recommend aspirin at this time. Patient was instructed to weigh herself daily and to increase Lasix dosing for weight gain of more than 3 lb. She will follow-up with cardiology in 2 weeks and obtain repeat CMP prior to this appointment. The patient was without chest pain or dyspnea and was on room air on day of discharge. Of note, chest x-ray showed possible superimposed pneumonia however patient was afebrile without leukocytosis or cough. No hypoxia. Suspect chest x-ray findings more related to volume overload. No antibiotics warranted. Patient was discharged home in stable condition. Strict return precautions discussed. Status at Discharge Functional status at discharge: independent ambulation Time Spent with Patient Time attestation: Total time spent providing and/or coordinating discharge services: Time spent: Greater than 30 minutes Exam Narrative: General: NAD Eyes: EOMI ENT: neck supple Cardiovascular: Regular rate and rhythm Respiratory: Clear to auscultation, respirations even and unlabored on RA Gastrointestinal: Soft, non tender Genitourinary: no suprapubic tenderness Musculoskeletal: No edema Skin: warm, dry Neuro: Alert. Psych: Mood appropriate DS: Data Data Completed and Pending Completed studies during hospitalization: ITS Impressions Chest X-Ray 04/30/25 17:07 Impression: CHF with superimposed probable pneumonia Labs on day of discharge: Labs from last 24 hours 05/05/25 05/04/25 05/04/25 04:20 11:22 10:56 WBC 4.3 L RBC 3.53 L Hgb 11.2 L Hct 34.5 L MCV 97.7 MCH 31.7 MCHC 32.5 RDW 16.3 H Plt Count 146 L MPV 11.5 H Immature Gran % (Auto) 0.7 H Neut % (Auto) 78.9 H Lymph % (Auto) 8.4 L Pettis % (Auto) 8.7 H Eos % (Auto) 2.6 Baso % (Auto) 0.7 Lymph # (Auto) 0.36 L Pettis # (Auto) 0.4 Eos # (Auto) 0.1 Baso # (Auto) 0.0 Abs Immat Gran (auto) 0.03 Absolute Neuts (auto) 3.4 Absolute Nucleated RBC 0.000 Nucleated RBC % 0.0 Activ Coag Time Kaolin 262 H 245 H Sodium 136 L Potassium 3.5 Chloride 102 Carbon Dioxide 29 Anion Gap 5 BUN 34 H Creatinine 1.03 H Estim Creat Clear Calc 36 Estimated GFR 53 L Glucose 112 H Calcium 8.9 Total Bilirubin 0.5 AST 38 H ALT 51 H Alkaline Phosphatase 99 Total Protein 5.3 L Albumin 3.2 L Preliminary micro results at discharge 04/30/25 20:33 Blood Culture - Preliminary Blood 04/30/25 20:14 Blood Culture - Preliminary Blood Discharge Plan Discharge Attending physician on discharge: Niki Rubin Consulting providers: Beck Bassett; Silvia Posadas; Bailey Carranza Discharging Clinician: Silvia Posadas Anticipated Discharge Date/Time: 05/02/25 11:40 Patient Disposition: Home Activity: no straining Diet: heart healthy Discharge Instructions: Discharge disposition: Home Take medications as prescribed. Take Lasix 40mg daily for 3 more days, then decrease to 20 mg daily. Take an additional 20 mg of lasix po in the evening if your weight increases more than 3 pounds in 24 hours (or >122pounds). We will also add empagliflozin 10mg to be taken daily. Follow-up with your Employee Benefits Specialist in 2 weeks regarding further management of these medications. Have your lab work repeated 2 days prior to your follow-up with cardiology. This can be completed at [facility] Monitor blood pressures Take caution while standing, rising, or moving Change positions slowly taking a break between each position change If you standing feel dizzy sit back down and take a break Encouraged to continue with yearly vaccinations Return to the emergency department if he developed sudden shortness of breath, chest pain, nausea, vomiting, upset stomach or intractable diarrhea Return to the emergency department if you develop fever greater than 101.5 Follow-up with the primary care physician within 1-2 weeks Thank you for choosing [facility] for your healthcare needs DISCHARGE INSTRUCTIONS - POST CARDIAC CATH Activity Restriction 1. No Driving for 24 hours 2. No lifting, pushing or pulling more than 10 LBS for 1 week 3. No strenuous activity or exercising for 1 week 4. Shower after 24 hours, do not soak in any water such as hot tubs or bath tubs Wound Care 1. Remove dressing 24 hours after your procedure prior to showering 2. Lather soap and water to puncture site and rinse then pat dry 3. You may apply a new band aid to the site and remove aft er 24 hours then leave open to air 4. Monitor daily for redness, drainage, mild swelling and fever Report IMMEDIATELY: CALL 911 1. If you experience any swelling or bleeding from puncture site. Hold firm pressure over the puncture site until help arrives 2. If you experience any new discomfort in you back, neck, jaw, stomach or arm. Any shortness of breath, nausea, vo miting, or cold sweats 3. If you experience any swelling, tenderness, or numbness in your leg or if your leg becomes cold or has color changes. Follow Up 1. Follow your doctors discharge instructions on resuming your medications. Some medications will need to be held after your procedure 2. Follow up with the office to schedule your next appointment with your doctor 3. Drink plenty of water following your procedure, avoid alcohol If you received a stent or a closure device keep your card with you such as in your wallet. Present your card to your doctor appointments to update your health care information. *For any other questions please call the office at [phone]. Office hours are 8AM 4:30PM Thursday through Thursday. Patient Instructions: Antibiotic Form Patient Language: Ugandan Stand Alone Forms: General Discharge Information Follow-up/Referrals: Kameron Dior MD [Physician, Interventional Cardiology] - Call for Appointment Referral Note: in 2 weeks Jeremy,MD Praveena [Primary Care Provider, Unknown] Discharge Medications: New Jardiance 10 mg Tablet 10 mg PO DAILY 31 Days Qty: 31 0RF furosemide 40 mg Tablet 40 mg PO DAILY 31 Days Qty: 31 0RF Rx Instructions: Take 40 mg x3 days, then 20 mg daily Continued amiodarone [Pacerone] 200 mg Tablet 200 mg PO DAILY@0800 Qty: 30 0RF atorvastatin 40 mg Tablet 80 mg PO HS Qty: 180 3RF varenicline tartrate [Chantix Starting Month Box] 0.5 mg (11)- 1 mg (42) tablets,dose pack See Rx Instructions .ROUTE .COMPLEX Qty: 53 0RF Rx Instructions: orally per package directions clopidogrel 75 mg Tablet 75 mg PO QAM 30 Days Qty: 30 11RF sacubitril-valsartan [Entresto] 24-26 mg Tablet 1 tab PO Q12HR 30 Days Qty: 60 0RF Eliquis 5 mg tablet 5 mg PO BID Qty: 60 3RF Discontinued metoprolol succinate [Toprol XL] 25 mg Tablet Extended Release 24 Hr 25 mg PO QAM Qty: 30 0RF furosemide [Lasix] 40 mg tablet 20 mg PO DAILY Qty: 10 0RF Other Ambulatory Orders: Comprehensive Metabolic Panel (Routine) Timeframe: 10 Day Location: Determined by Patient Ordered By: Silvia Posadas Comprehensive Metabolic Panel (Routine) Timeframe: 10 Day Location: Determined by Patient Ordered By: Silvia Posadas Date of admission: 05/01/25 07:34 Primary Care Provider: YovaniPraveena Admitting Provider: Dora Rendon Attending physician on admission: Dora Rendon Condition: Stable Hospitalist MIPS Heart Failure (Exclusion) Patient has history of Heart Transplant or Left Ventricular Assistive Device?: No IF YES, STOP HERE Heart Failure (Qualifier) Patient has current or prior documentation of LVEF less than or equal to 40%, or mod/servere depressed LVSF?: Yes IF NO, STOP HERE If Yes, Heart Failure (Qualifier) Patient was prescribed or already taking an Angiotensin-Converting Enzyme (REBEKAH) Inhibitor, or Antiotensin Receptor Charito (ARB): Yes Patient was prescribed or already taking bisoprolol, carvedilol, or sustained release metoprolol succinate: No If Medications not prescribed/taking Reason patient not prescribed/taking bisoprolol, carvedilol, or sustained realease metoprolol succinate: Medical reasons: allergy, intolerance, contraindication or other (bradycardia)
--- NOTE | 2025-05-05 09:58 | PCNFU ---
Nutrition Follow-Up Complete: Unintended weight loss as related to CHF exacerbation as evidenced by weight loss of 6% (10 ibs) in 1 month. Meet estimated nutritional needs Goal is being met. Continue with same goal Goal: Pt current nutrition is heart healthy diet. Nutrition recommendation: No new recommendations. Continue current nutrition care plan and orders. Agree with orders Last recorded weight is 54.1 kg. Bowel Motility: +3 BMs 05/02 Labs Reviewed: Hgb 11.2, Hct 34.5, Alb 3.2, Na 136, BUN 34, Cre 1.03 Meds Noted: Lasix Skin: No skin issues Additional Notes: Intakes are good, 50-100%. Having bowel movements. Continue current plan and orders. Will monitor weight, labs, skin, diet orders, meds every 5 days.
== END 2025-05-05 12:28 | disposition home or self-care (01) | DRG 321 ==
LOC: ANHED 21:29 → ANH3MED 21:32 → ANHIMU 05-03 09:37
PROVIDERS: Emergency Medicine; Internal Medicine Interventional Cardiology; Physician Assistant; Admitting Provider Internal Medicine; Emergency Provider Physician Assistant; PCP Family Medicine; Visit Provider Physician Assistant
PROC: 4A023N7 Measurement of Cardiac Sampling and Pressure, Left Heart, Percutaneous Approach (ICD-10-PCS; CPT 93452; principal; 2025-05-04 10:00)
PROC: 027034Z Dilation of Coronary Artery, One Artery with Drug-eluting Intraluminal Device, Percutaneous Approach (ICD-10-PCS; CPT 92928; 2025-05-04 10:00)
PROC: 4A023N7 Measurement of Cardiac Sampling and Pressure, Left Heart, Percutaneous Approach (ICD-10-PCS; 2025-05-04 10:00)
DX: I11.0 Hypertensive heart disease with heart failure (principal); I50.23 Acute on chronic systolic (congestive) heart failure; I25.5 Ischemic cardiomyopathy; I25.2 Old myocardial infarction; I25.10 Atherosclerotic heart disease of native coronary artery without angina pectoris; I48.0 Paroxysmal atrial fibrillation; E78.5 Hyperlipidemia, unspecified; Z87.891 Personal history of nicotine dependence; Z95.5 Presence of coronary angioplasty implant and graft; Z79.01 Long term (current) use of anticoagulants; Z79.02 Long term (current) use of antithrombotics/antiplatelets; Z20.822 Contact with and (suspected) exposure to COVID-19; Z79.84 Long term (current) use of oral hypoglycemic drugs
CPT/HCPCS: 36415; 71046; 80048; 80053; 83880; 84484; 85025; 85610; 85730; 87040; 87637; 92978; 93005; 93308; 93458; 96365; 96367; 96375; 99285; A9270; C1725; C1753; C1760; C1769; C1874; C1887; C1894; C8924; C9600; G0378; J0456; J0696; J1644; J1938; J2003; J2250; J2305; J3010; J7040; J7050; Q9957

== ENCOUNTER 2025-05-15 16:27 | Outpatient (CLI) | payer MEDICARE, SELFPAY ==
--- OUTSIDE RECORDS SUMMARY | 2025-05-15 17:01 | XMS_ITS | Encounter Summary ---
Author Organization [facility] Address Replaced by [facility] [place] [address] Care Team Providers Care Pediatric Physician Name Role Phone Christofer Okeefe MD Primary Care Provider U Praveena Grace MD Primary Care Provider [phone] Encounter Details Date Type Department Care Team (Latest Contact Info) Description 06/22/2018 Abstract [facility] Lina Moreno MD Social [...] Description 06/08/2025 8:40 AM CDT Office Visit [facility] Family & Internal Medicine [facility] [id number] [place] [phone] [place] [address] [facility] [address] [place] [address] documented as of this encounter Visit Diagnoses Not on filedocumented in this encounter Care Teams Pediatric Physician Relationship Specialty Start Date End Date Christofer kOeefe MD PCP - General 03/04/13 10/02/22 [place] [address] [place] [address] PCP - General FAMILY PRACTICE 10/03/22 documented as of this encounter
--- OUTSIDE RECORDS SUMMARY | 2025-05-15 17:01 | XMS_ITS | Encounter Summary ---
Author Organization [facility] Address [facility] [place] [address] Care Team Providers Care Sales Special Agent Name Role Phone Praveena Luna MD Primary Care Provider [phone] Encounter Details Date Type Department Care Team (Latest Contact Info) Description 05/05/2025 Scan HEALTH INFO SRVCS Scanned, Doc Med Group Social History Tobacco Use Types Packs/Day Years Used Date Smoking Tobacco: Every Day Cigarettes 0.5 13 Smokeless Tobacco: Never Comments:Smokes here and the re- has tried to quit several times Alcohol Use Standard Drinks/Week Comments No 0 (1 standard drink = 0.6 oz pur e alcohol) AUDIT-C Answer Date Recorded Frequency of Alcohol Consumption Never 11/16/2018 Average Number of Drinks Not on file Frequency of Binge Drinking Not on file [...] Description 06/08/2025 8:40 AM CDT Office Visit [facility] Medical [facility] Family & Internal Medicine [address] [address] Praveena Luna MD [address] [place] [address] [place] [address] documented as of this encounter Visit Diagnoses Not on filedocumented in this encounter Additional Health Concerns Assessment Noted Time PHQ-9 Depression Total Score: 0 04/02/20 22 1:49 PM CDT documented as of this encounter Care Teams Sales Special Agent Relationship Specialty Start [place] [address] [place] [address] PCP - General FAMILY PRACTICE 10/03/22 documented as of this encounter
--- OUTSIDE RECORDS SUMMARY | 2025-05-15 17:01 | XMS_ITS | Encounter Summary ---
Author Organization [facility] Address [facility] [place] [address] Care Team Providers Care Staking Press Operator Name Role Phone Praveena Luna MD Primary Care Provider [phone] Encounter Details Date Type Department Care Team (Latest Contact Info) Description 05/08/2025 Scan HEALTH INFO SRVCS Scanned, Doc Med [...] Description 06/08/2025 8:40 AM CDT Office Visit [facility] Medical Group Family & Internal Medicine [address] [address] Praveena Luna MD [address] [place] [address] [place] [address] documented as of this encounter Visit Diagnoses Not on filedocumented in this encounter Additional Health Concerns Assessment Noted Time PHQ-9 Depression Total Score: 0 04/02/20 22 1:49 PM CDT documented as of this encounter Care Teams Staking Press Operator Relationship Specialty [place] [address] [address] [place] [address] PCP - General FAMILY PRACTICE 10/03/22 documented as of this encounter
--- OUTSIDE RECORDS SUMMARY | 2025-05-15 17:01 | XMS_ITS | Clinical Summary ---
Author Organization [facility] Address [address] [place] [address] Care Team Providers Care Curriculum Director Name Role Phone Praveena Luna MD Primary Care Provider [phone] Allergies No known active allergies Medications calcium [...] Encounters Date Type Department Care Team Description 05/08/2025 Scan MG HEALTH INFO SRVCS Scanned, Doc Med Group 05/05/2025 Scan MG HEALTH INFO SRVCS Scanned, Doc Med Group 05/04/2025 Scan MG HEALTH INFO SRVCS Scanned, Doc Med Group Alumni Relations Coordinator Report (SCAN)* 05/01/2025 Scan MG HEALTH INFO SRVCS Scanned, Doc Med Group Echo (SCAN); Alumni Relations Coordinator Report (SCAN)* 04/30/2025 Scan MG HEALTH INFO SRVCS Scanned, Doc Med Group 04/12/2025 Scan MG HEALTH INFO SRVCS Scanned, [...] MCG/ 0.5 ML DOSE 07/01/2021,12/04/2020,11/06/2020 MODERNA COVID-19 (ELECTRICAL EQUIPMENT TECHNICIAN MARYAN MIRANDA), MRNA, LNP-S, PF, 50 MCG/ [...] HOSPITAL Medical Group Family & Internal Medicine - [address] [address] Praveena Luna MD [address] [place] [address]. [address] [place] [address] Health Maintenance Due Date Last Done [...] 03/21/2022 Hepatitis C Completed 10/04/2014 PHQ-2 (Physician Overton) Completed 12/07/2024 Meningococcal B Vaccine Aged Out No l onger eligible based on patient's age to complete this topic Meningococcal Vaccine Aged Out No chintan randal eligible based on patient's age to complete this topic RSV Immunizations Under 20 Months Aged Out No longer eligible based on patient's age to complete this topic Procedures Procedure Name Priority Date/Time Associated Diagnosis Comments CLINICAL PHARMACY SPECIALIST 05/04/2025 CLINICAL PHARMACY SPECIALIST 05/01/2025 ECHO GENERIC (SCAN ORDER) 05/01/2025 ECHO GENERIC (SCAN ORDER) 05/01/2025 PROCEDURE GENERIC (SCAN ORDER) 03/22/2025 COLONOSCOPY Routine 03/21/2022 9:00 AM CDT MAMMOGRAM GENERIC (SCAN ORDER) Routine 07/29/2018 12:48 PM [facility] BUSINESS ADMINISTRATOR HEPATITIS A,B,& C Routine 10/04/2014 9:0 0 AM [facility] BUSINESS ADMINISTRATOR from Last 3 Months or Most Recently Relevant to Health Maintenance Results * CLINICAL PHARMACY SPECIALIST (05/04/2025) Anatomical Region Laterality Modality Other 05/04/2025 [facility] Scanned SCANNING Final Resu lt * CLINICAL PHARMACY SPECIALIST (05/01/2025) Anatomical Region Laterality Modality Other 05/01/2025 [facility] [employer] Scanned SCANNING Final Resu lt * ECHO GENERIC (SCAN ORDER) (05/01/2025) Anatomical Region Laterality Modality Other 05/01/2025 [facility] [employer] Scanned SCANNING Final Resu lt * ECHO GENERIC (SCAN ORDER) (05/01/2025) Anatomical Region Laterality Modality Other 05/01/2025 [facility] Med [facility] Scanned SCANNING Final Resu lt * PROCEDURE GENERIC (SCAN ORDER) (03/22/2025) 03/22/2025 us [facility] Scanned SCANNING Final Resu lt * MAMMOGRAM (07/29/2018 12:48 PM [facility]UR[facility] BUSINESS ADMINISTRATOR) Anatomical Region Laterality Modality Other us Documents Scanned SCANNING Final Result * HEPATITIS A,B,& C (10/04/2014 9:00 AM CH[facility] BUSINESS ADMINISTRATOR) HAV IGM NON-REACTI VE NR [facility] TO EPIC CONVERSION HEPATITIS B SURFACE AG NON-REACTI VE NR [facility] TO EPIC CONVERSION HEP B SURFACE AB NON-REACTI VE [facility] TO EPIC CONVERSION HEP B CORE TOTAL AB NON-REACTI VE NR [facility] TO EPIC CONVERSION HEPATITIS C AB NON-REACTI VE NR [facility] TO EPIC CONVERSION Comment: Result Comment: TESTING PERFORMED AT [facility], A [facility]BER OF [facility]. 10/04/2014 9:00 AM CHURCH BUSINESS ADMINISTRATOR 10/04/2014 9:00 AM [facility] BUSINESS ADMINISTRATOR Narrative [facility] TO EPIC CONVERSION - 10/04/2014 5:21 PM CH[facility] BUSINESS ADMINISTRATOR Result Communication: Call patient with results us Christofer Okeefe MD LABORATORY Final Re sult [facility] TO EPIC CONVERSION from Last 3 Months or Most Recently Relevant to Health Maintenance Insurance MEDICARE AETNA MEDICARE Care Teams Curriculum Director Relationship Specialty [place] [address] [address] [place] [address] PCP - General FAMILY PRACTICE 10/03/22
--- OUTSIDE RECORDS SUMMARY | 2025-05-15 17:01 | XMS_ITS | Encounter Summary ---
Author Organization [facility] Address [address] [place] [address] Care Team Providers Care Needle Punch Machine Operator Helper Name Role Phone Praveena Luna MD Primary Care Provider [phone] Reason for Visit * Reason Comments Lead Web Application Developer Report (SCAN)* Encounter Details Date Type Department Care Team ([facility] Contact Info) Description 05/04/2025 Scan HEALTH INFO SRVCS Scanned, Doc Med Group Lead Web Application Developer Report (SCAN)* Social History Tobacco Use Types Packs/Day Years [...] Upcoming Encounters Date Type Department Care Team ([facility] Contact Info) Description 06/08/2025 8:40 AM CDT Office Visit [facility] Medical [facility] Family & Internal Medicine [address] [address] [place] [address] [place] [address] documented as of this encounter Procedures Procedure Name Priority Date/Time Associated Diagnosis Comments OVAL OR CIRCULAR GLASS CUTTER 05/04/2025 documented in this encounter Results * OVAL OR CIRCULAR GLASS CUTTER (05/04/2025) Anatomical Region Laterality Modality Other 05/04/2025 us Doc Med Group Scanned SCANNING Final Resu lt documented in this encounter Visit Diagnoses Not on filedocumented in this encounter Additional Health Concerns Assessment Noted Time PHQ-9 Depression Total Score: 0 04/02/20 22 1:49 PM CDT documented as of this encounter Care Teams Needle Punch Machine Operator Helper Relationship Specialty [place] [address] [place] [address] PCP - General FAMILY PRACTICE 10/03/22 documented as of this encounter
--- OUTSIDE RECORDS SUMMARY | 2025-05-15 17:01 | XMS_ITS | Encounter Summary ---
Author Organization [facility] Address [facility] [place] [address] Care Team Providers Care Instrument And Control Service Person Name Role Phone Christofer Okeefe MD Primary Care Provider U Praveena Grace MD Primary Care Provider Encounter Details Date Type Department Care Team (Late st Contact Info) Description 12/14/2012 Abstract [facility] CONVERSION [address] [facility] [place] [address] , Generic MD Nelson Social History Tobacco [...] Description 06/08/2025 8:40 AM CDT Office Visit [facility] Family & Internal Medicine [facility] [address] [place] [address] [place] [address] [facility] [place] [address] documented as of this encounter Visit Diagnoses Not on filedocumented in this encounter Care Teams Instrument And Control Service Person Relationship Specialty Start Date End Date Christofer Okeefe MD PCP - General 03/04/13 10/02/22 [place] [address] [address] [place] [address] PCP - General FAMILY PRACTICE 10/03/22 documented as of this encounter
[2025-05-15 17:54] LABS: Alanine Aminotransferase 34 U/L (6-35); Albumin Level 3.9 g/dL (3.5-5.1); Alkaline Phosphatase 93 U/L (38-126); Anion Gap 7 mmol/L (4-12); Aspartate Amino Transferase 34 U/L (14-36); Bilirubin,Total 0.7 mg/dL (0.2-1.3); Blood Urea Nitrogen 33 mg/dL (7-17); Calcium 9.2 mg/dL (8.4-10.2); Carbon Dioxide 23 mmol/L (22-30); Chloride 108 mmol/L (98-107); Estimated Glomerular Filt Rate 44; Glucose 94 mg/dL (65-110); Potassium 3.3 mmol/L (3.4-5.0); Sodium 138 mmol/L (137-145); Total Protein 6.2 g/dL (6.3-8.2)
== END 2025-05-15 16:28 | disposition home or self-care (01) ==
PROVIDERS: PCP Family Medicine; Visit Provider Physician Assistant
DX: I50.9 Heart failure, unspecified (principal)
CPT/HCPCS: 36415; 80053

== ENCOUNTER 2025-08-16 12:30 | Outpatient (RCR) | payer MEDICARE, SELFPAY | END 2025-08-16 15:25 | disposition home or self-care (01) | LOC: ANHCPREHAB 12:30 | PROVIDERS: PCP Family Medicine; Visit Provider Internal Medicine Cardiovascular Disease | DX: I50.89 Other heart failure (principal) | CPT/HCPCS: 93798 ==